=== PATIENT | female | born 1960 | race Caucasian/White ===

== ENCOUNTER → 2017-10-23 14:36 | Outpatient (CLI) | payer OTHER, SELFPAY ==
--- NOTE | 2017-10-23 14:44 | CT_ITS ---
CT sinus wo con CLINICAL INDICATION: Sinusitis ITS.REASON: ETHMOIDAL SINUSITIS ORDERING PHYSICIAN: Coleman Flaherty MD PATIENT AGE: 57 years COMPARISON: None TECHNIQUE:Axial, sagittal, and coronal images are generated and reviewed without contrast FINDINGS: There is mild mucosal thickening of the left maxillary sinus measuring up to 5 mm. Mild mucosal thickening involves the inferior wall the right maxillary sinus. There is mild mucosal thickening in the mid aspect of the left ethmoid sinus. The frontal and sphenoid sinuses have an unremarkable appearance as do the mastoid sinuses. No air-fluid level apparent. There is only minimal rightward nasal septal deviation. Ostomy or complex is are patent. Unremarkable TMJs and orbits. IMPRESSION: Mild maxillary and ethmoid sinus disease. No air-fluid levels
== END ==
PROVIDERS: Family Provider Family Medicine; PCP Family Medicine; Visit Provider Family Medicine
DX: J32.2 Chronic ethmoidal sinusitis (principal)
CPT/HCPCS: 70486

== ENCOUNTER → 2018-06-10 14:32 | Outpatient (CLI) | payer BC, SELFPAY ==
--- NOTE | 2018-06-10 14:35 | CA_ITS ---
PROCEDURE: 2-D M-mode and color Doppler study INDICATIONS FOR THE TEST: Chest pain + COPD Heart Murmur Tobacco SmokingEX Palpitations Fatigue Syncope Edema+ Hypertension+Diabetes Mellitus Rheumatic Fever SOB ROSS Obesity+Hyperlipidemia Family History HD Additional History EDEMA, MVP PATIENT INFORMATION HEIGHT: 70 WEIGHT:260 GENDER: Female B/P:120/84 2-D/M-MODE INTERPRETATION: 2-D MEASUREMENTS OBSERVED VALUES IN CMS Right Ventricular Dimension (RVDd) 1.4 Interventricular Septum (Thickness)(IVsd) 0.9 Left Ventricular Internal Dimensions(LVIDd) 5.6 Left Ventricular Posterior Wall (Thickness)(LVPWd) 0.9 Aortic Root 3.5 Aortic Cusp Separation 2.1 Left Atrial Dimensions (LAD) 3.4 2D 1. Left atrium is qualitatively mildly enlarged, left ventricle is normal size, mild concentric left ventricular hypertrophy, visually estimated ejection fraction 55% with no regional wall motion abnormality. 2. The right atrium and right ventricle are relatively normal size and function. 3. The aortic valve is minimally thickened and fibrosed. 4. The mitral and tricuspid valvular grossly normal. 5. The pulmonic valve is poorly visualized. 6. No significant pericardial effusion noted. DOPPLER INTERROGATION: Doppler interrogation of the aortic, mitral and tricuspid valvular presence of mild mitral and tricuspid regurgitation, tricuspid regurgitation jet velocity is insufficient for acquisition of the right ventricular systolic pressure, grade 1 diastolic dysfunction seen with tissue Doppler evidence of raised left atrial pressure. CONCLUSION: 1. Mildly enlarged left atrium, normal left ventricular size, mild concentric left ventricular hypertrophy, visually estimated ejection fraction 55% with no regional wall motion abnormality, grade 1 diastolic dysfunction seen with tissue Doppler evidence of raised left atrial pressure. 2. Mild mitral and tricuspid regurgitation 3. No significant pericardial effusion noted.
== END ==
PROVIDERS: Family Provider Family Medicine; PCP Family Medicine; Visit Provider Family Medicine
DX: R60.0 Localized edema (principal)
CPT/HCPCS: 93306

== ENCOUNTER → 2018-08-31 10:38 | Outpatient (CLI) | payer BC, SELFPAY ==
--- NOTE | 2018-08-31 10:40 | MM_ITS ---
MM Dig screening mamm BI w/CAD CAD Screening COMPARISON: Digital mammograms with CAD 08/22/2017 and 08/20/2016 INDICATION: There is no personal or family history of breast cancer. There has been previous biopsy left breast for benign disease. TECHNIQUE: Standard CC and MLO images were obtained. R2 CAD reviewed. FINDINGS: There is a diffusely dense and heterogenic parenchymal pattern somewhat lessening the sensitivity of mammography. The findings are fairly symmetrical bilaterally. There is a mole marker left breast. There is no suspicious lesion and there are no suspicious microcalcifications. There are few stable benign-appearing microcalcifications in each breast. IMPRESSION: Stable dense and heterogenic parenchymal pattern with no suspicious lesion seen BI-RADS Category: 2 Benign Finding(s) RECOMMENDED FOLLOW-UP: 1YR - 1 YEAR FOLLOW-UP (A letter has been sent to the patient regarding results of the study.)
== END ==
PROVIDERS: PCP Family Medicine; Visit Provider Obstetrics & Gynecology
DX: Z12.31 Encounter for screening mammogram for malignant neoplasm of breast (principal)
CPT/HCPCS: 77067

== ENCOUNTER → 2018-09-07 08:18 | Outpatient (CLI) | payer BC, SELFPAY ==
--- NOTE | 2018-09-07 08:19 | XR_ITS ---
Short DEX DEXA SCAN.-BONE DENSITY STUDY HIPS AND LUMBAR SPINE HISTORY: Postmenopausal female Bilateral oophorectomy. Hyperparathyroidism. Patient takes impression replacement therapy and levothyroxin. TECHNIQUE: DEXA scan hip and lumbar spine The most complete data summary and color graphic presentation of the today's ( and any prior ) DEXA findings are available in PACS. Definition and treatment guidelines included. COMPARISON: July 2015 except LUMBAR SPINE: Overall bone density Normal/above normal at lumbar spine L2 vertebral body demonstrates the lowest T score 1.3 with BMD1.355 g/cm sq Overall mean lumbar L1-L4 T score 2.3 with BMD1.451 g/cm sq . 2015 prior DEXA the mean T score 2.4. With BMD was1.468g/cm sq Thus when comparing today's study to the prior exam there's been a 2.5% % decrease mean bone density at the lumbar spine. I would note the today's limited vertebral bodies is more accurate today & correct. But today study will provide a better reference point HIPS: Normal bone density. Femoral neck density is best predictor of hip fracture risk . Right demonstrates the lowest T score = 0.7 . with BMD0.944 g/cm sq . Left femoral neck T score -0.6with BMD 0.953 Average and all regions both hips yields today's Hip Mean T score = 0.3; with BMD1.049 g/cm sq . 2015 DEXA overall hip T score = 0.1 with mean BMD1.020 g/cm sq Thus this reflects a 2.8% increasein overall mean bone density at the hips in the interval. IMPRESSION 1. LUMBAR SPINE: Overall bone density remains Normal/above normal at lumbar spine Normal bone density at all vertebral body levels 2. HIPS: Overall T score at hips 0.3 reflects normal bone density. Normal density at femoral necks as well as overall at hips. \ WHO criteria for post-menopausal, Women: Normal: T-score at or above -1 SD Osteopenia: T-score between -1 and -2.5 SD Osteoporosis: T-score at or below -2.5 SD A
== END ==
PROVIDERS: PCP Family Medicine; Visit Provider Obstetrics & Gynecology
DX: Z78.0 Asymptomatic menopausal state (principal)
CPT/HCPCS: 77080

== ENCOUNTER → 2019-02-04 14:33 | Outpatient (CLI) | payer BC, SELFPAY ==
--- NOTE | 2019-02-04 14:37 | CT_ITS ---
CT lung screening EXAM: CT LUNG LOW DOSE WO CONTRAST HISTORY: 30 pack-year smoking history, asymptomatic for lung cancer ITS.REASON: H/O NICOTINE DEPENDENCE ORDERING PHYSICIAN: Coleman Flaherty MD PATIENT AGE: 58 years COMPARISON: None TECHNIQUE: The exam was performed on a [employer] Speed [address] scanner using 2.90 mGy CTDI. A low dose helical CT CHEST was performed on a multi-detector scanner. All CT scans at the facility use one or more dose reduction, viz: automated exposure control, ma/kV adjustment per patient size (including targeted exams where dose is matched to indication, i.e. head), or iterative reconstruction technique. The LDCT was performed in a facility that meets the criteria for the screening program. Data regarding this exam was submitted to ACR which is an approved registry. The order for this exam indicates that it came as a result of a lung cancer screening counseling shard decision-making visit that included all the elements required of such a visit including smoking cessation. The radiologist interpreting this exam meets the CMS criteria for the LDCT lung cancer screening program. The exam is reported using the Lung-RADS classification scale and reported to the ACR registry. NOTE: This study was performed for the specific purposes of lung cancer screening and is not an alternative to diagnostic chest CT. RADIATION DOSE: CTDI vol(CT dose Index-volume) = 2.90mG DLP (Dose Length Product) = 94.9 by mGcm FINDINGS: There are scattered calcified granulomas. No suspicious pulmonary nodules are evident. There are few scattered small mediastinal lymph nodes unchanged. 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 Lung RADS Category: 2, benign 2. Other findings: No other pertinent findings evident RECOMMENDATIONS: 12 month LDCT follow-up
== END ==
PROVIDERS: PCP Family Medicine; Visit Provider Family Medicine
DX: Z12.2 Encounter for screening for malignant neoplasm of respiratory organs (principal); Z87.891 Personal history of nicotine dependence

== ENCOUNTER → 2019-08-27 15:37 | Outpatient (CLI) | payer BC, SELFPAY ==
--- NOTE | 2019-08-27 15:39 | MM_ITS ---
PROCEDURE: MM DIG SCREENING MAMM BI W/CAD Patient Age:59Y CLINICAL INDICATION: screening. No new complaints. Uses estradiol current. Previous benign surgical excisional biopsy left breast Family history. Noncontributory COMPARISON: [facility] DIGITAL MAMM-SCREEN BILATERAL from 05/18/2012 BB US BREAST-JULIA from 06/15/2013 [facility] DIG MAMM-SCREEN JULIA from 07/06/2014 [facility] DIG MAMM-SCREEN JULIA from 07/26/2015 [id number] DIG MAMM-DX UNI ADD VIEWS-LT from 08/18/2015 [facility] DIG MAMM-SCREEN JULIA from 08/20/2016 [facility] DIG MAMM-SCREEN JULIA W/CAD from 08/22/2017 [facility] MM Dig screening mamm BI w/CAD from 08/31/[address] lung screening from 02/04/2019 TECHNIQUE: Standard CC and MLO images were obtained. R2 CAD reviewed. FINDINGS: Dense heterogeneous difficult evaluate dense breast. Underlying fibrocystic disease with cyst identified on previous ultrasound most recent from 2012. Fairly stable overall appearance bilaterally but the dense breast character decrease sensitivity of mammography and nodularity may be slightly more evident superior left breast today LEFT BREAST. Suggestion of vague round density superior left breast I believe towards 12 o'clock; measures up to 17 mm height., likely reflects underlying cyst. Very slightly more evident today than previous studies.-This area is labeled X. Because of this focal feature along with the overall heterogeneous dense character of both breast (which does decrease sensitivity mammography) I would suggest bilateral breast ultrasound. This will serve as a a useful augment/supplemental screening mammography particularly regions breast tissue is most dense. I believe bilateral breast ultrasound warranted at this juncture in this heterogeneous fairly dense character breast, particularly since since last breast ultrasound was in 2012 and the patient is on estradiol Also suggest mammography spot views area labeled X: MLO and CC view left breast along with a full 90 degree view left breast when patient returns prior to the ultrasound A more linear density just inferior to this labeled Y on today's MLO view appears stable since prior studies dating back to at least 2015. And 2013 RIGHT BREAST: Overall stable architecture with no focal dominant or suspicious mass, but again ultrasound would be helpful to augment and complement mammography to survey this dense breast when the patient returns. Again note patient's last bilateral breast ultrasound was in 2012 on which the patient demonstrated bilateral fibrocystic disease as would be anticipated from this appearance IMPRESSION: Dense heterogeneous breast tissue bilateral decrease sensitivity of mammography Mammography is of decreased sensitivity in breast of this heterogeneous dense character. Suggest BILATERAL BREAST ULTRASOUND to augment/complement mammography, and to further evaluate area focal area at superior left breast but labeled X (likely cyst) Left breast: A slight more evident round density towards 12 o'clock today. Most likely a underlying cyst-. Spot views and ultrasound specifically to specifically evaluate this region required Right breast. Diffusely dense with no discrete new area of concern but would suggest ultrasound here as well. BI-RAD Category: 0 Need Additional Imaging Evaluation FOLLOW-UP: IMM Immediate Follow-up Recommend (A letter has been sent to the patient regarding results of the study.) Dictated by: Lee Nguyễn MD 09/03/2019 14:24 Electronically signed by Lee Nguyễn MD in [place] 09/03/2019 14:24
== END ==
PROVIDERS: PCP Family Medicine; Referring Provider Obstetrics & Gynecology; Visit Provider Obstetrics & Gynecology
DX: Z12.31 Encounter for screening mammogram for malignant neoplasm of breast (principal)
CPT/HCPCS: 77067

== ENCOUNTER → 2020-08-29 07:35 | Outpatient (CLI) | payer BC, SELFPAY ==
--- NOTE | 2020-08-29 07:36 | MM_ITS ---
PROCEDURE: MM DIG SCREENING MAMM BI W/CAD Digital Breast Tomosynthesis Included CLINICAL INDICATION: Routine Screening Mammogram There is no personal or family history of breast cancer. There has been a previous biopsy left breast for benign disease. The patient is on estradiol. COMPARISON: MG [facility] DIG MAMM-SCREEN JULIA W/CAD from 08/22/2017 MG [facility] MM Dig screening mamm BI w/CAD from 08/31/2018 MG MM DIG SCREENING MAMM BI W/CAD from 08/27/2019 TECHNIQUE: Standard CC and MLO images and 3D Tomosynthesis was obtained. R2 CAD reviewed. FINDINGS: There is a diffusely dense and heterogenic parenchymal pattern. There are persistent dominant densities left breast for which ultrasound was recommended on the previous exam but apparently was not performed. Some of these densities have shown interval increase in size since the previous exam and again I would recommend ultrasound left breast for additional evaluation even though these likely are benign cystic lesions. There are no CAD markings. There are no suspicious microcalcifications. IMPRESSION: Dense and heterogenic parenchymal pattern with dominant nodular densities left breast BI-RAD Category: 0 Need Additional Imaging Evaluation FOLLOW-UP: IMM Immediate Follow-up Recommended (A letter has been sent to the patient regarding results of the study.) Dictated by: Dr. Leopoldo Blankenship MD 09/01/2020 07:55 Dr. Leopoldo Blankenship MD in [place] 09/01/2020 07:55
== END ==
PROVIDERS: PCP Family Medicine; Visit Provider Obstetrics & Gynecology
DX: Z12.31 Encounter for screening mammogram for malignant neoplasm of breast (principal)
CPT/HCPCS: 77063; 77067

== ENCOUNTER → 2020-09-16 10:52 | Outpatient (CLI) | payer BC, SELFPAY ==
[2020-09-16 10:57] LABS: Adenovirus,PCR Not Detected (NotDetected); Bordetella Pertussis Not Detected (NotDetected); Chlamydophila Pneumoniae, PCR Not Detected (NotDetected); Coronavirus 229E Not Detected (NotDetected); Coronavirus NL63 Not Detected (NotDetected); Coronavirus OC43 Not Detected (NotDetected); Coronovirus HKU1,PCR Not Detected (NotDetected); Human Metapneumovirus Not Detected (NotDetected); Influenza A, PCR Not Detected (NotDetected); Influenza AH1, 2009 Not Detected (NotDetected); Influenza AH1, PCR Not Detected (NotDetected); Influenza AH3,PCR Not Detected (NotDetected); Influenza B, PCR Not Detected (NotDetected); Mycoplasma Pneumoniae, PCR Not Detected (NotDetected); Parainfluenza 1, PCR Not Detected (NotDetected); Parainfluenza 2, PCR Not Detected (NotDetected); Parainfluenza 3, PCR Not Detected (NotDetected); Parainfluenza 4, PCR Not Detected (NotDetected); Respiratory Syncytial Virus Not Detected (NotDetected); Rhinovirus/Enterovirus Not Detected (NotDetected)
[2020-09-16 11:09] LABS: Basophils % 0.6 % (0.1-2.0); Eosinophils % 0.2 % (0.1-12.0); Hematocrit 38.8 % (37.0-47.0); Hemoglobin 13.1 g/dL (12.2-16.2); Lymphocytes # 1.8 K/mm3 (0.7-4.5); Lymphocytes % 23.2 % (10-50); Mean Corpuscular HGB Conc 33.8 g/dL (31.8-35.4); Mean Corpuscular Hemoglobin 31.6 pg (27.0-31.2); Mean Corpuscular Volume 93.7 fl (81-99); Mean Platelet Volume 8.5 fl (7.4-10.4); Monocytes # 0.2 K/mm3 (0.1-1.0); Neutrophils # 5.8 K/mm3 (1.8-7.8); Neutrophils % 73.1 % (37.0-80.0); Platelet Count 333 K/mm3 (142-424); Red Blood Count 4.14 M/mm3 (4.20-5.40); Red Cell Distribution Width 14.6 % (11.5-17.5); White Blood Count 7.9 K/mm3 (4.8-10.8)
[2020-09-17 11:43] LABS: Coronavirus 19, PCR Detected (NotDetected)
== END ==
PROVIDERS: PCP Family Medicine; Visit Provider Family Medicine
DX: Z20.828 Contact with and (suspected) exposure to other viral communicable diseases (principal); U07.1 COVID-19
CPT/HCPCS: 36415; 85025; 87581; 87633; 87798

== ENCOUNTER → 2020-09-28 09:51 | Outpatient (CLI) | payer BC, SELFPAY | PROVIDERS: Visit Provider Physician Assistant | DX: Z03.818 Encounter for observation for suspected exposure to other biological agents ruled out (principal) | CPT/HCPCS: U0003 ==

== ENCOUNTER → 2021-01-12 07:41 | Outpatient (CLI) | payer BC, SELFPAY ==
--- NOTE | 2021-01-12 07:46 | XR_ITS ---
PROCEDURE: XR DEXA AXIAL SKELETON CLINICAL HISTORY: POST MENOPAUSAL COMPARISON: CR DEXAAX XR DEXA axial skeleton from 09/07/2018 FINDINGS: The right hip BMD is 0.840 with a T-score of -0.1. The left hip BMD is 0.813 with a T-score of -0.3. The lumbar spine BMD is 1.327 with a T-score of 2.5. IMPRESSION: This patient is considered normal according to the World Health Organization criteria. Fracture risk is low. Based on these results a follow-up exam is recommended in 2 year. Dictated by: Ayden Lyn MD 01/13/2021 09:04 Ayden Lyn MD in [place] 01/13/2021 09:04
--- NOTE | 2021-01-12 07:46 | CT_ITS ---
PROCEDURE: CT LUNG SCREENING CLINICAL INDICATION: H/O NICOTINE DEPENDENCE Former smoker Quit smoking 14 years ago 30 pack year smoking history COMPARISON: CT LUNGSCREEN CT lung screening from 02/04/2019 TECHNIQUE: The exam was performed on a GE [employer] Speed [address] scanner using 2.90 mGy CTDI. A low dose helical CT CHEST was performed on a multi-detector scanner. All CT scans at the facility use one or more dose reduction, viz: automated exposure control, ma/kV adjustment per patient size (including targeted exams where dose is matched to indication, i.e. head), or iterative reconstruction technique. The LDCT was performed in a facility that meets the criteria for the screening program. Data regarding this exam was submitted to ACR which is an approved registry. The order for this exam indicates that it came as a result of a lung cancer screening counseling shard decision-making visit that included all the elements required of such a visit including smoking cessation. The radiologist interpreting this exam meets the CMS criteria for the LDCT lung cancer screening program. The exam is reported using the Lung-RADS classification scale and reported to the ACR registry. NOTE: This study was performed for the specific purposes of lung cancer screening and is not an alternative to diagnostic chest CT. RADIATION DOSE: CTDI vol(CT dose Index-volume) = 2.90mG DLP (Dose Length Product) = 112.55 mGcm FINDINGS: No suspicious pulmonary nodules apparent. COPD changes with evidence of old granulomatous disease. OTHER FINDINGS: Prior splenectomy with at least 3 nodular soft tissue densities in the left upper quadrant and may be due to splenules IMPRESSION: Lung-RADS Category 1 Negative Follow-up: Continue annual screening with LDCT in 12 months Dictated by: Ayden Lyn MD 01/18/2021 13:48 Ayden Lyn MD in [place] 01/18/2021 13:48
== END ==
PROVIDERS: PCP Family Medicine; Visit Provider Physician Assistant
DX: Z87.891 Personal history of nicotine dependence (principal); Z12.2 Encounter for screening for malignant neoplasm of respiratory organs; Z78.0 Asymptomatic menopausal state
CPT/HCPCS: 71271; 77080

== ENCOUNTER 2021-04-26 10:42 | Emergency (ER) | payer BC, SELFPAY ==
[2021-04-26 10:45] VITALS: BP 148/49; PULSE 78; RESP 18; TEMP 36.9; O2SAT 98; BMI 39.3
--- NOTE | 2021-04-26 11:04 | XR_ITS ---
PROCEDURE: XR KNEE LT 3V CLINICAL INDICATION: FELL ON 04/12/21 Pain COMPARISON: CR [id number] KNEE-4 OR 5 VIEWS-LT from 02/24/2013 CR [id number] KNEE-LIMITED 2 VIEWS-LT from 05/03/2013 CR [id number] KNEE-LIMITED 2 VIEWS-LT from 05/17/2013 CR [id number] KNEE-LIMITED 2 VIEWS-LT from 11/10/2013 FINDINGS: Status post total knee replacement with good position of the prosthesis. No fracture or dislocation is evident. Other findings:There is a small hyperdense triangular-shaped density lateral to the tibial prosthesis proximally may be related to an osteophyte. This position has not been duplicated previously on the x-rays to determine if this is acute or chronic. Follow-up may confirm stability. IMPRESSION: S/p total knee replacement with good alignment. No definite acute finding. Please see above for detail Dictated by: Ayden Lyn MD 04/26/2021 12:01 Ayden Lyn MD in [place] 04/26/2021 12:01
[2021-04-26 11:39] VITALS: BP 148/49; PULSE 78; RESP 18; TEMP 36.9; O2SAT 98
--- NOTE | 2021-04-26 11:55 | HMH.EDUTC ---
[facility] [place] Impression: Left knee pain Qualifiers: Chronicity: acute Qualified Code(s): M25.562 - Pain in left knee Disposition: Home, Self-Care Condition on Discharge: Good Instructions: DI for Knee Pain Additional Instructions: Rest the extremity, Elevate the extremity as tolerated while you are resting. Follow up with Dr. Garcia (orthopedics). I put in a referral but you need to call his office and schedule an appointment. Follow up with your regular doctor. GO TO THE ER FOR ANY WORSENING SYMPTOMS Referrals: Victor Manuel Renee APRN [Primary Care Provider] - Hernesto Garcia MD [Staff Physician] - Time of Disposition: 12:12 Medical Decision Making - Medical Records Medical records reviewed: No: I reviewed the patient's medical records. - Vahe Inquiry Pt receiving controlled substance: No Vital Signs: 04/26/21 10:45 04/26/21 11:39 Temperature 98.5 F 98.5 F Temperature Source Oral Pulse Rate 78 Pulse Rate [Left Brachial] 78 Respiratory Rate 18 18 Blood Pressure 148/49 H Blood Pressure [Left Arm] 148/49 H Blood Pressure Mean [Left Arm] 82 Blood Pressure Source [Left Arm] Automatic Cuff Blood Pressure Position [Left Arm] Sitting 02 Sat by Pulse Oximetry 98 Oxygen Delivery Method Room Air - Radiology Data #1 Image(s): Knee Image Reviewed: Yes I reviewed the patient's radiology image [facility] [place] - General Stated complaint: ao fall 04/12 lft knee Time Seen by Provider: 04/26/21 11:00 Mode of Arrival: Ambulatory Source of Information: Patient Limitations: No Limitations Description of Symptoms (Recalled from Triage Doc. by RN): PATIENT C/O BRUISING TO LEFT KNEE. STATES SHE FELL ON 04/12 AND LANDED ON LEFT KNEE; HISTORY OF KNEE REPLACEMENT HEENT Symptoms (Recalled from RN notes): No Resp Symptoms (Recalled from RN notes): No Skin Symptoms (Recalled from RN notes): No MS Symptoms (Recalled from RN notes): Yes Functional Status (Recalled from RN notes): WNL - History of Present Illness Provider Complaint: She states that she fell while at work on 04/12 and came down on her left knee. Since then she has had left knee swelling and tenderness. She had a total knee replacement done around 4 years ago. Since then she has did really well with her knee until now. - Related Data Home Medications Medication Instructions Recorded Confirmed alprazolam 0.25 mg tablet 0.25 mg PO BID 09/03/18 09/06/19 diclofenac sodium 75 mg 75 mg PO BID 09/03/18 09/06/19 tablet,delayed release furosemide 40 mg tablet 40 mg PO DAILY 09/03/18 09/06/19 levothyroxine 100 mcg capsule 200 mcg PO DAILY cap 09/03/18 09/06/19 lisinopril 20 mg tablet 20 mg PO BID tab 09/03/18 09/06/19 Previous Rx's Medication Instructions Recorded estradiol 2 mg tablet 2 mg PO DAILY 30 Days #30 tab 09/07/20 Allergies Allergy/AdvReac Type Severity Reaction Status Date / Time erythromycin base Allergy Unknown Verified 09/07/20 09:59 [From ERYTHROCIN] Penicillins [PENICILLINS] Allergy Unknown Verified 09/07/20 09:59 - Worker's Comp Is this a Worker's Comp case?: No [facility] History - Hepatitis A Screen Drug use history?: No High risk sexual behaviors?: No History of sexually transmitted infection?: No Currently employed?: No Childcare worker?: No Do you have indoor plumbing?: Yes Do you have electricity?: Yes Attestation statement:: This patient has been screened for Hepatitis A risk factors. I have reviewed the patient's past medical history: Yes Medical History: Reports:: Cancer, Hypertension Denies:: Diabetes Mellitus Type 1, Diabetes Mellitus Type 2, MRSA Other Medical History: Reports: Arthritis, Other Comment: ARTHRITIS, MITRAL VALVE PROLAPSE, HYPERTENSION, CLIMACTERIC, THYROID CANCER, ACHILLES HEEL Other Surgeries: Yes: Dilation and Curettage, Hysterectomy-Total, Other Amputation: No Fractures: Yes Comment: 1987- RUPTURED SPLEEN>> SPLENECTOMY. 1987- D&E. 1989- MYOMECT
== END 2021-04-26 12:30 | disposition home or self-care (01) ==
PROVIDERS: Emergency Provider Nurse Practitioner Family; PCP Nurse Practitioner Family
DX: M25.562 Pain in left knee (principal); W01.0XXA Fall on same level from slipping, tripping and stumbling without subsequent striking against object, initial encounter; Y92.63 Factory as the place of occurrence of the external cause; Y99.0 Civilian activity done for income or pay
CPT/HCPCS: 73562; 99202; G0463

== ENCOUNTER → 2021-09-28 13:01 | Outpatient (CLI) | payer OTHER, SELFPAY ==
--- NOTE | 2021-09-28 13:01 | MM_ITS ---
PROCEDURE INFORMATION: Exam: MG Bilateral Screening 3D Mammography Exam date and time: 09/28/2021 1:01 PM Age: 61 years old Clinical indication: Encounter for screening mammogram for malignant neoplasm of breast TECHNIQUE: Imaging protocol: Bilateral screening tomosynthesis and 2D mammography including computer-aided detection (CAD) when performed. COMPARISON: 1. MG MM DIG SCREENING MAMM BI W/CAD 08/29/2020 8:07 AM 2. MG MM DIG SCREENING MAMM BI W/CAD 08/27/2019 4:01 PM 3. MG [facility] MM Dig screening mamm BI w/CAD 08/31/2018 10:55 AM FINDINGS: MAMMOGRAPHY: Breast composition: The breasts are extremely dense, which lowers the sensitivity of mammography. Mass: No suspicious masses. Architectural distortion: No suspicious distortion. Calcifications: No suspicious calcifications. Asymmetric density: None. Skin thickening: None. Axillary adenopathy: None. IMPRESSION: No mammographic evidence of malignancy. Annual screening is recommended unless otherwise clinically indicated. ASSESSMENT: BI-RADS Category 1: Negative
== END ==
PROVIDERS: PCP Family Medicine; Visit Provider Obstetrics & Gynecology
DX: Z12.31 Encounter for screening mammogram for malignant neoplasm of breast (principal)
CPT/HCPCS: 77063; 77067

== ENCOUNTER → 2022-05-07 15:51 | Outpatient (POV) | payer BC, SELFPAY | PROVIDERS: Visit Provider Dermatology | DX: Z00.00 Encounter for general adult medical examination without abnormal findings (principal) ==

== ENCOUNTER 2022-07-12 14:48 | Emergency (ER) | payer BC, SELFPAY ==
[2022-07-12 15:11] VITALS: BP 182/89; PULSE 75; RESP 18; TEMP 36.7; O2SAT 96; BMI 41.5
--- NOTE | 2022-07-12 15:46 | EXP.UTC ---
Discharge Plan Disposition Patient Disposition: Home, Self-Care Condition: Good Prescriptions Prescriptions: New prednisone [prednisone] 20 mg tablet 20 mg PO BID 5 Days Qty: 10 0RF cefdinir 300 mg capsule 300 mg PO BID 20 Days Qty: 20 0RF No Action metoprolol succinate 100 mg tablet extended release 24 hr PO rosuvastatin 5 mg tablet 5 mg PO DAILY Label Comments: TAKE 1 TABLET BY MOUTH EVERY DAY fluticasone propionate 50 mcg/actuation spray,suspension INTRANASAL Label Comments: SHAKE LIQUID AND USE 1 SPRAY IN EACH NOSTRIL EVERY DAY alprazolam 0.25 mg tablet 0.25 mg PO BID levothyroxine 100 mcg capsule 200 mcg PO DAILY lisinopril 20 mg tablet 20 mg PO BID furosemide 40 mg tablet 40 mg PO DAILY estradiol 2 mg tablet 2 mg PO DAILY 30 Days Qty: 30 12RF Referrals Follow up/Referrals: Coleman Flaherty MD [Primary Care Provider] - See instructions Clinical Impressions Clinical Impression: Sinusitis Instructions Patient Instructions: DI for Sinusitis Discharge ED Provider: Gabriella Waterman [facility] [place] General Stated complaint: possible sinus infection Mode of Arrival: Ambulatory Source of Information: Patient Limitations: No Limitations Time Seen by Provider: 07/12/22 15:46 Description of Symptoms (Recalled from Triage Doc. by RN): C/O sinus infection HEENT Symptoms (Recalled from RN notes): Yes (Sinus infection) Resp Symptoms (Recalled from RN notes): No Skin Symptoms (Recalled from RN notes): No MS Symptoms (Recalled from RN notes): No Functional Status (Recalled from RN notes): n/a History of Present Illness Provider Complaint: Sinus pain, pressure, congestion, drainage. No fever. Yellow green mucous. Symptoms X 2 days but rapidly worse. H/o splenectomy. Onset (ago): day(s) (2) Location: head Related Data Home Medications Medication Instructions Recorded Confirmed alprazolam 0.25 mg tablet 0.25 mg PO BID 09/03/18 10/05/21 furosemide 40 mg tablet 40 mg PO DAILY 09/03/18 10/05/21 levothyroxine 100 mcg capsule 200 mcg PO DAILY 09/03/18 10/05/21 lisinopril 20 mg tablet 20 mg PO BID 09/03/18 10/05/21 fluticasone propionate 50 g intranasal 10/05/21 10/05/21 mcg/actuation nasal spray,suspension metoprolol succinate 100 mg tab PO 10/05/21 10/05/21 tablet,extended release 24 hr rosuvastatin 5 mg tablet 5 mg PO DAILY 10/05/21 10/05/21 Previous Rx's Medication Instructions Recorded estradiol 2 mg tablet 2 mg PO DAILY 30 days #30 tabs 09/26/21 cefdinir 300 mg capsule 300 mg PO BID 20 days #20 caps 07/12/22 prednisone 20 mg tablet 20 mg PO BID 5 days #10 tabs 07/12/22 Allergies Allergy/AdvReac Type Severity Reaction Status Date / Time erythromycin base Allergy Unknown Verified 09/07/20 09:59 [From ERYTHROCIN] Penicillins [PENICILLINS] Allergy Unknown Verified 09/07/20 09:59 Worker's Comp Is this a Worker's Comp case?: No PFSH PFSH Social History Smoking Status: Never smoker alcohol intake: never substance use type: denies use current occupational status: employed Travel in the last 8 weeks: None ROS Obtained: Yes All systems reviewed & no additional complaints except as documented Constitutional Constitutional: Reports fatigue, Denies fever(s) and Reports malaise ENT Ears, Nose, Mouth, and Throat: Reports nasal congestion, Reports nasal discharge, Reports sinus pain and Reports sinus pressure Respiratory Respiratory: Reports chest congestion Endocrine Endocrine: Reports fatigue Physical Exam General General appearance: alert and in no apparent distress Head Head exam: normocephalic Eye Eye exam: Present PERRL ENT ENT exam: Present normal oropharynx and TM's normal bilaterally Expanded ENT Exam Nose exam: Present sinus tenderness Respiratory Respiratory exam: Present normal lung sounds bilaterally Cardiovascular Cardiovascular exam: Present regular rate and n
[2022-07-12 15:55] VITALS: BP 182/89; PULSE 75; RESP 18; TEMP 36.7; O2SAT 96
== END 2022-07-12 15:55 | disposition home or self-care (01) ==
PROVIDERS: Emergency Provider Physician Assistant; PCP Family Medicine
DX: J32.9 Chronic sinusitis, unspecified (principal)
CPT/HCPCS: 99212; G0463

== ENCOUNTER → 2022-08-12 11:59 | Outpatient (CLI) | payer BC, SELFPAY ==
--- NOTE | 2022-08-12 12:07 | XR_ITS ---
FINAL REPORT TECHNIQUE: Single view chest CLINICAL HISTORY: COVID OUTPATIENT FINDINGS: A single view of the chest was obtained. The heart and mediastinum are within normal limits. The lungs are clear. There is no pneumothorax. Osseous structures are unremarkable. IMPRESSION: No acute cardiopulmonary process. Reviewed, Interpreted and Dictated by Werner Howard III, MD Transcribed by Mary Ellen Chavira Authenticated and [facility]
[2022-08-12 13:08] LABS: Adenovirus,PCR Not Detected (NotDetected); Bordetella Pertussis Not Detected (NotDetected); Chlamydophila Pneumoniae, PCR Not Detected (NotDetected); Coronavirus 229E Not Detected (NotDetected); Coronavirus NL63 Not Detected (NotDetected); Coronavirus OC43 Not Detected (NotDetected); Coronovirus HKU1,PCR Not Detected (NotDetected); Human Metapneumovirus Not Detected (NotDetected); Influenza A, PCR Not Detected (NotDetected); Influenza AH1, 2009 Not Detected (NotDetected); Influenza AH1, PCR Not Detected (NotDetected); Influenza AH3,PCR Not Detected (NotDetected); Influenza B, PCR Not Detected (NotDetected); Mycoplasma Pneumoniae, PCR Not Detected (NotDetected); Parainfluenza 1, PCR Not Detected (NotDetected); Parainfluenza 2, PCR Not Detected (NotDetected); Parainfluenza 3, PCR Not Detected (NotDetected); Parainfluenza 4, PCR Not Detected (NotDetected); Respiratory Syncytial Virus Not Detected (NotDetected); Rhinovirus/Enterovirus Not Detected (NotDetected)
[2022-08-12 13:24] LABS: Basophils # 0.2 K/mm3 (0-0.2); Basophils % 0.8 % (0.1-2.0); Eosinophils # 0.3 K/mm3 (0.0-0.4); Eosinophils % 1.4 % (0.1-12.0); Hemoglobin 12.4 g/dL (12.2-16.2); Lymphocytes # 3.2 K/mm3 (0.7-4.5); Lymphocytes % 16.4 % (10-50); Mean Corpuscular HGB Conc 31.9 g/dL (31.8-35.4); Mean Corpuscular Hemoglobin 29.9 pg (27.0-31.2); Mean Corpuscular Volume 93.8 fl (81-99); Monocytes # 1.3 K/mm3 (0.1-1.0); Monocytes % 6.6 % (1.7-9.3); Neutrophils # 14.8 K/mm3 (1.8-7.8); Neutrophils % 74.8 % (37.0-80.0); Platelet Count 474 K/mm3 (142-424); Red Blood Count 4.15 M/mm3 (4.20-5.40); Red Cell Distribution Width 14.4 % (11.5-17.5); White Blood Count 19.8 K/mm3 (4.8-10.8)
[2022-08-12 13:44] LABS: MANUAL DIFFERENTIAL MANUAL DIFFERENTIAL (MANUAL DIFF)
[2022-08-12 16:41] LABS: Eosinophils % 1 % (0-3); Lymphocytes % 19 % (10-50); Monocytes % 2 % (2-9); Neutrophils % 78 % (42-76); Total Cells Counted 100
[2022-08-12 16:42] LABS: Platelet Estimate Slight Increase; RBC Morphology Normal
[2022-08-12 17:00] LABS: Coronavirus 19, PCR Detected (NotDetected)
== END ==
LOC: UTC.OUT 08-30 17:54 → COVID.OUT 08-30 17:55
PROVIDERS: PCP Family Medicine; Visit Provider Family Medicine
DX: U07.1 COVID-19 (principal)
CPT/HCPCS: 36415; 71045; 85007; 85025; 87581; 87632; 87798; C9803; U0003; U0005

== ENCOUNTER → 2022-10-04 16:39 | Outpatient (CLI) | payer BC, SELFPAY ==
--- NOTE | 2022-10-04 16:39 | MM_ITS ---
PROCEDURE INFORMATION: Exam: MG Bilateral Screening 3D Mammography Exam date and time: 10/04/2022 4:31 PM Age: 62 years old Clinical indication: Screening mammogram TECHNIQUE: Imaging protocol: Bilateral Screening tomosynthesis and 2D mammography including computer-aided detection (CAD) when performed. COMPARISON: 1. MG MM DIG SCREENING MAMM BI W/CAD 09/28/2021 1:07 PM 2. MG MM DIG SCREENING MAMM BI W/CAD 08/29/2020 8:07 AM 3. MG MM DIG SCREENING MAMM BI W/CAD 08/27/2019 4:01 PM 4. MG SCBI MM Dig screening mamm BI w/CAD 08/31/2018 10:55 AM FINDINGS: MAMMOGRAPHY: Breast composition: The breast tissue is extremely dense, which lowers the sensitivity of mammography. Mass: None. Architectural distortion: No new or suspicious architectural distortion. Calcifications: Stable benign-appearing calcifications are present. No new or suspicious cluster of microcalcifications have developed. Asymmetric density: No new or suspicious asymmetric density is present Skin thickening: None. Axillary adenopathy: None. IMPRESSION: No mammographic evidence of malignancy. Recommend annual screening mammography unless otherwise clinically indicated. ASSESSMENT: BI-RADS category 2: Benign
== END ==
PROVIDERS: PCP Family Medicine; Visit Provider Obstetrics & Gynecology
DX: Z12.31 Encounter for screening mammogram for malignant neoplasm of breast (principal)
CPT/HCPCS: 77063; 77067

== ENCOUNTER → 2023-10-08 14:47 | Outpatient (POV) | payer BC, SELFPAY ==
--- NOTE | 2023-10-08 14:50 | A.OFFVIS_ITS ---
HPI Data of Consult Patient: new to practice Consult date: 10/08/23 Requesting Physician: Mary Massey APRN Primary Care Provider: Coleman Flaherty MD Consult Narrative History of present illness: Ms. Causey is a 63 year old female who presents today as a new patient. She is a referral from Dr. Flaherty's office. Today she rates her pain a 10 out of 10. Patient states her pain is all in and around her mid back between her shoulder blades and describes it as a catching, achy sensation that occurs at random but is fairly constant. She does state the pain in her mid back will radiate into and under her right arm. Patient states this has been going on for the last 2 months and that she denies any specific trauma or injury that initially started. Patient states she was just doing things around her house and had reached out causing a catching sensation with pain in her back. She does state that she is having right hand numbness and tingling. 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 Patient states that she was ordered x-ray imaging however she states that she has not gotten this done because there was no order there yesterday when she went however she has been told that it will be there today. Patient is unsure whether or not if the x-ray is for her neck or mid back. Patient does states she has tried [id number] Tylenol and Aleve and ibuprofen along with muscle relaxers with minimal relief. Patient denies any previous surgery or injection history. Patient states she has been going to the chiropractor the last 4 weeks and it does help temporarily. Patient does state that she feels like it may also be stress related. Her is present today with her in the office. He states he does have concerns whether or not that it may be heart attack. patient denies having any recent EKG or stress test. Patient does states she has a history of mitral valve prolapse. Patient does use a TENS unit for temporary relief. Patient is currently managed with alprazolam 0.25 mg twice daily from an outside provider. Her Vahe has been reviewed and is appropriate. CC: Mary Massey APRN [facility] Disclaimer: The information contained in this section may have been updated after the patient was seen, as this information can be updated by other users. Medical History (Updated 10/08/23 @ 16:00 by Mary Massey APRN) History of hypertension Hyperlipemia Spleen absent Surgical History H/O thyroidectomy H/O total hysterectomy History of total left knee replacement Family History (Updated 10/08/23 @ 15:34 by Yandy Murphy RN) Other Unknown family medical history Social History (Updated 10/08/23 @ 15:34 by Yandy Murphy RN) Smoking Status: Never smoker alcohol intake: never substance use type: denies use current occupational status: employed Travel in the last 8 weeks: None Review of Systems Review of Systems Review of systems:: pertinent systems reviewed and negative unless documented below Review of systems (narrative): Review of Systems: General: No recent weight changes, no fever, no sleep disturbances Respiratory: No cough, no shortness of air, no recurring pulmonary infections Cardiovascular/peripheral vascular: No chest pain, no palpitations, no edema, no shortness of breath Gastrointestinal: No new onset incontinence, normal bowel movements reported Genitourinary: No new onset incontinence Musculoskeletal: Right hand numbness, mid back pain Psychiatric: [Normal mood/affect] Neurological: [Denies weakness in extremities], [denies balance issues] Meds Home Medications and Allergies Home Medications Medication Instructions Recorded Confirmed Type alprazolam 0.25 mg tablet 0.25 mg PO BID 09/03/18 10/08/23 History furosemide 40 mg tablet 40 mg PO DAILY 09/03/18 10/08/23 History levothyroxine 100 mcg capsule 200 mcg PO DAILY 09/03/18 10/08/23 History lisinopril 20 mg tablet 20 mg PO BID 09/03/18 10/08/23 History fluticasone propionate 50 50 mcg intranasal DIRECTED 10/05/21 10/08/23 History mcg/actuation nasal spray,suspension metoprolol succinate 100 mg 1 tab PO DAILY BLOOD PRESSURE 10/05/21 10/08/23 History tablet,extended release 24 hr estradiol 2 mg tablet 2 mg PO DAILY 30 days #30 tabs 10/11/22 10/08/23 Rx rosuvastatin 5 mg tablet See Rx Instructions .Route 06/30/23 10/08/23 Rx .COMPLEX #30 tabs New Prescriptions to Start Prescriptions: Allergies Allergy/AdvReac Type Severity Reaction Status Date / Time erythromycin base Allergy Unknown Verified 10/11/22 09:30 [From ERYTHROCIN] Penicillins [PENICILLINS] Allergy Unknown Verified 10/11/22 09:30 Objective Narrative: Physical Exam: General: Alert and oriented x3, no acute distress, pleasant and cooperative Lungs: Respirations even and unlabored, symmetrical chest expansion Eyes: PERRL Musculoskeletal: Flexion and extension of cervical [spine] somewhat guarded secondary to pain, point tenderness noted along thoracic spine Neurological: Speech clear, no gross sensory deficit Assessment and Plan *Assessment and plan (1) Mid back pain: Status: Acute Category: Medical Code(s): M54.9 - Dorsalgia, unspecified (2) Right hand paresthesia: Status: Acute Category: Medical Code(s): R20.2 - Paresthesia of skin (3) Weakness of right hand: Status: Acute Category: Medical Code(s): R29.898 - Other symptoms and signs involving the musculoskeletal system Plan Patient is experiencing significant pain in her mid back along the right side as well as experiencing worsening right hand numbness and tingling and weakness. Patient did have discoloration of her right hand during today's exam and was cool to touch. I have discussed with the patient that she may benefit from injection therapy however I would like to do x-ray imaging of her cervical and thoracic spine. I will proceed forward with ordering MRI of cervical and thoracic spine without contrast. I will order compounded cream for the patient. I have discussed with the patient due to her history of mitral valve prolapse I do recommend she talk to her primary care provider regarding ordering EKG and possible stress test to rule out any heart related issues. I will send a referral to for Dr. Khan's office for EMG testing to rule out carpal tunnel. Patient will return to clinic in 1 month for reevaluation of symptoms and plan of care. Patient has been instructed to contact the clinic with any concerns before the next appointment. Dr. Johnson has reviewed this note and agrees with this plan of care. This note was dictated using voice recognition software and make contain errors or omissions.
[2023-10-08 14:54] VITALS: BP 175/89; PULSE 76; RESP 18; O2SAT 96; BMI 39.3
== END ==
LOC: SC.PAIN 14:48
PROVIDERS: PCP Family Medicine; Visit Provider Nurse Practitioner Family
DX: M54.6 Pain in thoracic spine (principal); R20.2 Paresthesia of skin; R29.898 Other symptoms and signs involving the musculoskeletal system; R53.1 Weakness
CPT/HCPCS: 99202; G0463

== ENCOUNTER 2023-10-08 16:02 | Outpatient (CLI) | payer BC, SELFPAY ==
--- NOTE | 2023-10-08 16:13 | XR_ITS ---
FINAL REPORT CLINICAL HISTORY: Neck and back pain COMPARISON: None FINDINGS: CERVICAL SPINE 5 views were obtained. There is no acute fracture or malalignment. There is moderate degenerative change of the lower cervical spine. Multilevel osteophytes are noted. There is moderate bilateral C5-6 neural foraminal narrowing. THORACIC SPINE Three views were obtained. There is no acute fracture or malalignment. There is mild degenerative change with osteophytes. IMPRESSION: Degenerative changes without acute process. Reviewed, Interpreted and Dictated by Werner Howard III, MD Transcribed by Franchesca Gilman Authenticated and [facility]
== END 2023-10-08 23:59 ==
LOC: RAD 16:04
PROVIDERS: PCP Family Medicine; Visit Provider Nurse Practitioner Family
DX: M54.2 Cervicalgia (principal); M54.6 Pain in thoracic spine
CPT/HCPCS: 72084

== ENCOUNTER 2023-10-13 16:47 | Outpatient (CLI) | payer BC, SELFPAY ==
--- NOTE | 2023-10-13 16:47 | MM_ITS ---
PROCEDURE INFORMATION: Exam: MG Bilateral Screening 3D Mammography Exam date and time: 10/13/2023 4:35 PM Age: 63 years old Clinical indication: Screening mammogram TECHNIQUE: Imaging protocol: Bilateral Screening tomosynthesis and 2D mammography including computer-aided detection (CAD) when performed. COMPARISON: 1. MG MM DIG SCREENING MAMM BI W/CAD 10/04/2022 4:31 PM 2. MG MM DIG SCREENING MAMM BI W/CAD 09/28/2021 1:07 PM 3. MG MM DIG SCREENING MAMM BI W/CAD 08/29/2020 8:07 AM 4. MG MM DIG SCREENING MAMM BI W/CAD 08/27/2019 4:01 PM FINDINGS: MAMMOGRAPHY: Breast composition: The breast is heterogeneously dense, which may obscure small masses. Mass: None. Architectural distortion: No new or suspicious architectural distortion. Calcifications: No new or suspicious calcifications are present Asymmetric density: No new or suspicious asymmetric density is present Skin thickening: None. Axillary adenopathy: None. IMPRESSION: No mammographic evidence of malignancy. Recommend annual screening mammography unless otherwise clinically indicated. ASSESSMENT: BI-RADS category 1: Negative
== END 2023-10-13 23:59 ==
LOC: RAD 16:47
PROVIDERS: PCP Family Medicine; Visit Provider Obstetrics & Gynecology
DX: Z12.31 Encounter for screening mammogram for malignant neoplasm of breast (principal)
CPT/HCPCS: 77063; 77067

== ENCOUNTER 2023-10-16 10:48 | Outpatient (CLI) | payer BC, SELFPAY ==
[2023-10-16 12:50] LABS: Troponin I < 0.01 ng/ml (0.00-0.034)
[2023-10-16 13:13] LABS: Triiodothryronine (T3) Uptake 35 % (23.5-40.5)
[2023-10-16 13:27] LABS: Thyroid Stimulating Hormone 0.15 uIU/mL (0.465-4.68)
== END 2023-10-16 23:59 ==
LOC: LAB 10:49
PROVIDERS: PCP Family Medicine; Visit Provider Nurse Practitioner Family
DX: E11.9 Type 2 diabetes mellitus without complications (principal); E78.5 Hyperlipidemia, unspecified; I10 Essential (primary) hypertension; M79.603 Pain in arm, unspecified; R00.2 Palpitations; Z82.49 Family history of ischemic heart disease and other diseases of the circulatory system; Z86.79 Personal history of other diseases of the circulatory system; Z87.891 Personal history of nicotine dependence
CPT/HCPCS: 84436; 84443; 84479; 84484; 93270

== ENCOUNTER 2023-10-23 06:18 | Outpatient (CLI) | payer BC, SELFPAY ==
--- NOTE | 2023-10-23 06:23 | NM_ITS ---
APPROVED REPORT Exam: Nuclear Stress Test Indication: chest pain..soa..palpitations..fatigue Patient Location: Outpatient Stress Tech: Kitty Cocrhan [place] Tech:Jocy Reina ARRT RT(R)(N) Ht: 5 ft 10 in Wt: 278 lbs Bra Size: 48c HR: 59 bpm BP: 202/97 mmHg BSA: 2.40 m2 Rhythm: NSR TID: 1.29 BMI: 39.8 History: chest pain..soa..palpitations..fatigue Procedure: Patient received 0.4 mg of intravenous Lexiscan, resting heart rate 59 bpm, resting blood pressure 202/97 mmHg, with Lexiscan maximum heart rate achieved was 70 bpm which is 85 % of the maximum predicted heart rate and blood pressure was 202/97 mmHg. With Lexiscan, patient denied any complaint of chest pain. Cardiac Stress and Resting SPECT Images: Cardiac Stress and Resting SPECT images were obtained using technetium 99m Myoview 31.4 mCi stress and 10.75 mCi at rest. Resting and stress imaging in supine and prone positions demonstrate a large sized, moderate, partially reversible perfusion defect in the anterior LV wall. There is also a medium sized, moderate, partially reversible perfusion defect in the basal to mid inferior LV wall. There is increased transient ischemic dilatation ratio (TID 1.29), suggestive of possible multivessel disease or balanced ischemia. Gated imaging demonstrates mild reduction in global LV systolic function. There is moderate hypokinesis in the basal inferior and anterior LV cruz. LVEF is calculated at 47%. Conclusion: Large sized, moderate, partially reversible perfusion defect in the anterior LV wall. There is also a medium sized, moderate, partially reversible perfusion defect in the basal to mid inferior LV wall. There is increased transient ischemic dilatation ratio (TID 1.29), suggestive of possible multivessel disease or balanced ischemia. Gated imaging demonstrates mild reduction in global LV systolic function. There is moderate hypokinesis in the basal inferior and anterior LV cruz. LVEF is calculated at 47%. Electronically signed by : Emma Rosales MD 10/29/2023 13:01:58
--- NOTE | 2023-10-23 09:26 | CA_ITS ---
APPROVED REPORT Exam: Pharmacologic Technologist: Kitty Xie, Ht: 5 ft 10 in Wt: 276 lbs BSA: 2.39 m2 HR: 56 bpm BP: 202/97 mmHg Rhythm: NSR Medical History Medications: Lisinopril,,,,, Alprazolam,,,,, Levothyroxine,,,,, Aspirin,,,,, Flonase,,,,, Estradilol,,,,, RoSUVASTATIN,,,,, Co Q10,,,,, Multivitamin,,,,, Metoprolol Succinate ER,,,,, Furosemide,,,,, Stress Test Details Test: LEXISCAN Reason for pharmacologic stress test: physical limitation. HR Resting HR: 59 bpm Max Heart Rate (APMHR): 156 bpm Max HR Achieved: 70 bpm Target HR (85% APMHR): 133 bpm % of APMHR: 45 Recovery HR: 62 bpm BP Resting BP: 202.0/97.0 mmHg Max BP: 202.0/97.0 mmHg Recovery BP: 185.0/86.0 mmHg ECG Resting ECG: Sinus bradycardia Stress ECG: No significant ST changes Arrhythmia: PACs Clinical Exercise duration: 04:01 min Highest Stage Achieved: Exercise capacity: 1.0 METs Stress ECG Conclusion Symptoms: mild SOA & head discomfort. No CP. Arrhythmias/Ectopy: Occasional PAC. ST-T Changes: No significant ST changes. Conclusion: Unremarkable Lexiscan stress. Myoview images reported separately. Pt will monitor BP at home & notify provider if remains elevated. Test Summary REST . . . . . . . Resting REST 05:15 . . 59 . 202/ 97 . . Stage 1 01:00 . . 64 . . . . Stage 2 01:00 . . 68 . 197/ 86 . . Stage 3 01:00 . . 65 . 191/ 89 . . Stage 4 01:00 . . 63 . 182/ 82 . . Stage 4 01:01 . . 63 . 182/ 82 . Stop exercise at 04:01 RECOVERY 01:00 . . 65 . . . . RECOVERY 02:00 . . 62 . . . . RECOVERY 03:00 . . 65 . 167/ 84 . . RECOVERY 04:00 . . 62 . 181/ 91 . . RECOVERY 05:00 . . 63 . 185/ 86 . . RECOVERY 05:22 . . 64 . 185/ 86 . . Electronically signed by : Emma Rosales MD 10/29/2023 13:00:03
[2023-10-23] MEDS: ISOTOPE MYOVIEW (PER STUDY) 1 DOSE IV (09:31)
[2023-10-23] MEDS: SODIUM CHLORIDE 0.9% 10ML SYR (RAD ONLY) 10 ML IV ×2 (09:31)
[2023-10-23] MEDS: REGADENOSON 0.4MG/5ML SYRINGE 0.400000000000000022 MG IV (09:31)
== END 2023-10-23 23:59 ==
LOC: RAD 06:20
PROVIDERS: PCP Family Medicine; Visit Provider Nurse Practitioner Family
DX: I10 Essential (primary) hypertension (principal); R00.2 Palpitations; M79.603 Pain in arm, unspecified; E11.9 Type 2 diabetes mellitus without complications; E78.5 Hyperlipidemia, unspecified; Z86.79 Personal history of other diseases of the circulatory system; Z82.49 Family history of ischemic heart disease and other diseases of the circulatory system; Z87.891 Personal history of nicotine dependence
CPT/HCPCS: 78452; 93017; 93018; A9502; J2785

== ENCOUNTER 2023-10-28 07:38 | Outpatient (CLI) | payer BC, SELFPAY ==
--- NOTE | 2023-10-28 07:47 | CA_ITS ---
APPROVED REPORT EXAM: Comprehensive 2D, Doppler, and color-flow Echocardiogram Load Out Supervisor: ELBERT Sams, RVS Ht: 5 ft 10 in Wt: 276lbs BSA: 2.39 BP: 142/82 mmHg Indications: HTN, DM, Ex-smoker, SOB 2D Dimensions IVSd 1.07 cm LVEF (Visual) 49.80 % PWd 0.88 cm LA Volume 68.10 mL LVDd 5.08 cm LA Volume Index 27.80 mL/m2 (M/F) 16-34 LVDs 3.79 cm Left Atrium 3.30 cm M-Mode Dimensions LA Diam 3.09 cm (1.9-4.0) EPSs 0.80 cm TAPSE 2.87 (<1.7) LV Diastology E Decel Time 293 (160-240 msec) E/A Ratio 0.72 MED A' 8.90 cm/s LAT A' 10.70 cm/s Aortic Valve AMIE Index 1.11 cm2/m2 AoV Peak Alvin. 112.0 (50-130 cm/s) AO Peak GR. 5.10 mmHg AO Mean GR. 2.50 (<5 mmHg) AO VTI 22.8 (18-25 cm) AMIE (VTI) 2.73 (2.5-4.5 cm2) Mitral Valve MV A Velocity 94.0 (40-130 cm/s) E/A Ratio 0.72 Left Ventricle The left ventricle is normal size. The left ventricular systolic function is normal. The left ventricular ejection fraction is within the normal range. There is normal left ventricular wall thickness. There is normal LV segmental wall motion. The left ventricular diastolic function is normal. LVEF is 55%. Right Ventricle The right ventricle is normal size. The right ventricular systolic function is normal. Atria The left atrium size is normal. The right atrium size is normal. There is no Doppler evidence of interatrial shunt. Aortic Valve The aortic valve is mildly thickened. There is no aortic valvular stenosis. Trace aortic regurgitation. Mitral Valve The mitral valve leaflets are mildly thickened. No evidence of mitral valve stenosis. Trace mitral regurgitation. Tricuspid Valve The tricuspid valve leaflets are thin and pliable. Trace tricuspid regurgitation. There is insufficient TR jet to estimate RVSP. Pulmonic Valve The pulmonary valve is normal in structure. Trace pulmonic regurgitation. Great Vessels The aortic root is normal in size. The ascending aorta is not well-visualized. IVC is normal in size and collapses >50% with inspiration. Pericardium There is no pericardial effusion. Other Information Study Quality: Fair Conclusion Normal biventricular systolic function. No significant valvular stenosis or regurgitation. Electronically signed by : Emma Rosales MD 11/01/2023 19:30:34
== END 2023-10-28 23:59 ==
PROVIDERS: PCP Family Medicine; Visit Provider Nurse Practitioner Family
DX: R00.2 Palpitations (principal); I10 Essential (primary) hypertension; E11.9 Type 2 diabetes mellitus without complications; E78.5 Hyperlipidemia, unspecified; M79.603 Pain in arm, unspecified; Z82.49 Family history of ischemic heart disease and other diseases of the circulatory system; Z86.79 Personal history of other diseases of the circulatory system; Z87.891 Personal history of nicotine dependence
CPT/HCPCS: 93306

== ENCOUNTER 2023-11-07 09:58 | Day surgery (SDC) | payer BC, SELFPAY ==
[2023-11-07] VITALS (13 sets, daily range): BP systolic 108–161; BP diastolic 56–73; PULSE 59–70; RESP 15–18; O2SAT 93–99; BMI 40.3
--- NOTE | 2023-11-07 07:16 | IR_ITS ---
APPROVED REPORT Patient Location: Outpatient Electric Refrigerator Servicer: RICHELLE Jo RT (R) PROCEDURES Left heart catheterization Left ventriculogram Selective coronary angiogram INDICATION High risk abnormal Myoview, Angina pectoris Informed consent was obtained prior to the procedure. COMPLICATIONS None Estimated Blood Loss: Less than 10 mls TECHNIQUE One percent lidocaine used to anesthetize the right anterior aspect of the wrist. The right radial artery was accessed via the Seldinger technique. A 6 Hungarian sheath was placed in the right radial artery. 2.5 mg of Verapamil, 800 mcg of nitroglycerin, 1mg Lidocaine and 5000 U Heparin were given through the arterial sheath. The papa catheter was also used to perform left heart catheterization, left ventriculogram and selective coronary angiogram. At the end of the procedure the sheath was removed good hemostasis was achieved using Traclet band, patient was transferred to the postop holding area in stable condition. ANGIOGRAPHIC RESULTS The left main artery Normal The left anterior descending artery Normal The circumflex artery Dominant normal The right coronary artery Normal The JOHNSON ventriculogram reveals Normal 65% The left ventricular end-diastolic pressure Severely elevated at 25 to 30 mmHg IMPRESSION Normal coronary arteries Normal ejection fraction Severely elevated LVEDP consistent with HFpEF PLAN 1. Diuresis 2. Recommend sleep study 3. Weight loss recommended 4. Cardiac rehabilitation Electronically signed by : Vito Cameron MD 11/07/2023 12:20:41
[2023-11-07 10:21] LABS: Basophils # 0.1 K/mm3 (0-0.2); Basophils % 0.9 % (0.1-2.0); Eosinophils # 0.2 K/mm3 (0.0-0.4); Eosinophils % 2.6 % (0.1-12.0); Hematocrit 43.1 % (37.0-47.0); Hemoglobin 14.3 g/dL (12.2-16.2); Lymphocytes # 2.5 K/mm3 (0.7-4.5); Lymphocytes % 26.9 % (10-50); Mean Corpuscular HGB Conc 33.2 g/dL (31.8-35.4); Mean Corpuscular Hemoglobin 31.4 pg (27.0-31.2); Mean Corpuscular Volume 94.5 fl (81-99); Monocytes # 0.5 K/mm3 (0.1-1.0); Monocytes % 5.1 % (1.7-9.3); Neutrophils % 64.5 % (37.0-80.0); Platelet Count 374 K/mm3 (142-424); Red Blood Count 4.56 M/mm3 (4.20-5.40); Red Cell Distribution Width 14.6 % (11.5-17.5); White Blood Count 9.3 K/mm3 (4.8-10.8)
[2023-11-07 10:29] LABS: Anion Gap 5.5 mEq/L (5-15); Blood Urea Nitrogen 31 mg/dl (7-17); Calcium 8.9 mg/dl (8.4-10.2); Carbon Dioxide 35 mmol/L (22.0-30.0); Chloride 102 mmol/L (98-107); Creatinine Clearance Estimated 114 mL/min (50-200); Estimated Glomerular Filt Rate 84 ml/min (>60); GFR (African American) 102 ML/MIN (>60); Glucose 107 mg/dl (74-100); Potassium 4.5 mmoL/L (3.5-5.1); Sodium 138 mmol/L (136-145)
[2023-11-07] MEDS: diphenhydrAMINE 50MG/ML VIAL 50 MG IV (10:35)
[2023-11-07] MEDS: VERAPAMIL 2.5MG/ML 2ML VIAL 2.5 MG IV (10:35)
[2023-11-07] MEDS: LIDOCAINE 1% 10ML MDV 20 ML IJ (10:36)
[2023-11-07] MEDS: NITROGLYCERIN 800MCG/8ML SYR (CATH LAB) 800 MCG IA (10:36)
[2023-11-07] MEDS: FENTANYL 100MCG/2ML VIAL 50 MCG IV (10:37)
[2023-11-07] MEDS: 0.9 % SODIUM CHLORIDE 500 ML 25 ML IV (10:37)
[2023-11-07] MEDS: MIDAZOLAM HCL 1MG/1ML 5ML VIAL 1 MG IV (10:37)
[2023-11-07] MEDS: HEPARIN 1,000 UNITS/500ML NS (CATH LAB) 3000 UNIT IV (10:37)
[2023-11-07] MEDS: HEPARIN 1,000 UNITS/ML 10ML VIAL (CATH LAB) 10000 UNIT IV (10:37)
[2023-11-07] MEDS: IOPAMIDOL-370 (76%);100ML BOTTLE 40 ML IV (13:59)
== END 2023-11-07 14:00 | disposition home or self-care (01) ==
PROVIDERS: PCP Family Medicine; Visit Provider Internal Medicine
DX: I20.89 Other forms of angina pectoris (principal); R06.02 Shortness of breath; R94.39 Abnormal result of other cardiovascular function study; I50.30 Unspecified diastolic (congestive) heart failure; Z79.899 Other long term (current) drug therapy; I11.0 Hypertensive heart disease with heart failure; E78.5 Hyperlipidemia, unspecified; E11.9 Type 2 diabetes mellitus without complications
CPT/HCPCS: 36415; 80048; 85025; 93458; 99152; C1725; C1769; J1644; Q9967

== ENCOUNTER 2023-11-18 12:37 | Outpatient (CLI) | payer BC, SELFPAY ==
--- NOTE | 2023-11-18 12:54 | MR_ITS ---
FINAL REPORT TECHNIQUE: Multiplanar and multisequence imaging of the cervical spine was obtained. CLINICAL HISTORY: NECK AND BACK PAIN. NECK PAIN WORSE ON RIGHT SIDE. PAIN RADIATES DOWN TO ELBOW. MEDIAL SIDED FOREARM NUMBNESS. FINDINGS: There is straightening of the lordosis. Alignment is otherwise normal. Vertebral body height is preserved. Signal intensity within the substance of the spinal cord is normal. Bone marrow signal intensity is within normal limits. No acute paraspinal abnormality. C2/3: An annular disc bulge is present with degenerative endplate changes and facet osteoarthropathy. There is moderate right neural foraminal narrowing. C3/4: An annular disc bulge is present with degenerative endplate changes and facet osteoarthropathy. There is mild right and moderate left neural foraminal narrowing. C4/5: An annular disc bulge is present with degenerative endplate changes and facet osteoarthropathy. C5/6: An annular disc bulge is present with degenerative endplate changes and facet osteoarthropathy. There is mild central stenosis. There is severe right and moderate left neural foraminal narrowing. C6/7: An annular disc bulge is present with degenerative endplate changes and facet osteoarthropathy. There is mild central stenosis. There is moderate right and severe left neural foraminal narrowing. C7/T1: An annular disc bulge is present. There is no significant canal stenosis or neural foraminal narrowing. IMPRESSION: Multilevel degenerative disc disease, most pronounced at C5-6 and C6-7. Reviewed, Interpreted and Dictated by Shona Demarco MD Transcribed by Barby Ovalle Authenticated and . [facility]
[2023-11-18 13:15] LABS: Basophils # 0.1 K/mm3 (0-0.2); Basophils % 0.5 % (0.1-2.0); Eosinophils # 0.1 K/mm3 (0.0-0.4); Eosinophils % 0.9 % (0.1-12.0); Hematocrit 49.1 % (37.0-47.0); Hemoglobin 15.5 g/dL (12.2-16.2); Lymphocytes # 2.5 K/mm3 (0.7-4.5); Lymphocytes % 23.1 % (10-50); Mean Corpuscular HGB Conc 31.5 g/dL (31.8-35.4); Mean Corpuscular Hemoglobin 30.7 pg (27.0-31.2); Mean Corpuscular Volume 97.3 fl (81-99); Mean Platelet Volume 9.5 fl (7.4-10.4); Monocytes # 0.6 K/mm3 (0.1-1.0); Monocytes % 5.1 % (1.7-9.3); Neutrophils # 7.6 K/mm3 (1.8-7.8); Neutrophils % 70.5 % (37.0-80.0); Platelet Count 457 K/mm3 (142-424); Red Blood Count 5.04 M/mm3 (4.20-5.40); Red Cell Distribution Width 13.7 % (11.5-17.5); White Blood Count 10.8 K/mm3 (4.8-10.8)
[2023-11-18 13:54] LABS: Anion Gap 16.7 mEq/L (5-15); Blood Urea Nitrogen 70 mg/dl (7-17); Calcium 10.8 mg/dl (8.4-10.2); Carbon Dioxide 27 mmol/L (22.0-30.0); Chloride 97 mmol/L (98-107); Estimated Glomerular Filt Rate 35 ml/min (>60); GFR (African American) 42 ML/MIN (>60); Glucose 100 mg/dl (74-100); Potassium 5.7 mmoL/L (3.5-5.1); Sodium 135 mmol/L (136-145)
== END 2023-11-18 23:59 ==
LOC: RAD 12:38
PROVIDERS: Nurse Practitioner; PCP Family Medicine; Visit Provider Nurse Practitioner Family
DX: I50.30 Unspecified diastolic (congestive) heart failure (principal); M54.2 Cervicalgia; M54.9 Dorsalgia, unspecified
CPT/HCPCS: 36415; 72141; 76376; 80048; 85025

== ENCOUNTER 2023-11-22 14:37 | Emergency (ER) | payer BC, SELFPAY ==
[2023-11-22] VITALS (9 sets, daily range): BP systolic 97–133; BP diastolic 60–90; PULSE 79–97; RESP 15; TEMP 36.5–36.6; O2SAT 92–100; BMI 40.4
--- NOTE | 2023-11-22 15:04 | PC.NURSE ---
Dr. Bowman at [facility] for pt eval
--- NOTE | 2023-11-22 15:12 | XR_ITS ---
PROCEDURE INFORMATION: Exam: XR Chest Exam date and time: 11/22/2023 3:33 PM Age: 63 years old Clinical indication: Other: Weakness; Additional info: Weakness, history of effusion TECHNIQUE: Imaging protocol: Radiologic exam of the chest. Views: 2 views. COMPARISON: No relevant prior studies available. FINDINGS: Lungs: Unremarkable. No consolidation. Pleural spaces: Unremarkable. No pleural effusion. No pneumothorax. Heart/Mediastinum: Unremarkable. No cardiomegaly. Bones/joints: Unremarkable. Intraperitoneal space: Surgical clips in the left upper quadrant of the abdomen IMPRESSION: No acute process
--- NOTE | 2023-11-22 15:23 | ECG_ITS ---
APPROVED REPORT Exam: Resting ECG HR:85 bpm ECG Measurements Heart Rate 85 AXES [place] 152 P 59 QRSd 98 QRS 46 QT 353 T 43 QTc 395 Conclusion SINUS RHYTHM Electronically signed by : JEREMÍAS JORDAN, 11/22/2023 21:43:54
[2023-11-22 15:25] LABS: Basophils # 0.1 K/mm3 (0-0.2); Basophils % 1.3 % (0.1-2.0); Eosinophils # 0.1 K/mm3 (0.0-0.4); Eosinophils % 0.5 % (0.1-12.0); Hematocrit 48.3 % (37.0-47.0); Hemoglobin 15.2 g/dL (12.2-16.2); Lymphocytes # 3.8 K/mm3 (0.7-4.5); Lymphocytes % 33.6 % (10-50); Mean Corpuscular HGB Conc 31.3 g/dL (31.8-35.4); Mean Corpuscular Hemoglobin 31.8 pg (27.0-31.2); Mean Corpuscular Volume 101.4 fl (81-99); Monocytes # 0.6 K/mm3 (0.1-1.0); Monocytes % 5.4 % (1.7-9.3); Neutrophils # 6.6 K/mm3 (1.8-7.8); Neutrophils % 59.1 % (37.0-80.0); Platelet Count 416 K/mm3 (142-424); Red Blood Count 4.77 M/mm3 (4.20-5.40); Red Cell Distribution Width 13.9 % (11.5-17.5); White Blood Count 11.2 K/mm3 (4.8-10.8)
[2023-11-22 15:32] LABS: Coronavirus 19, PCR Not Detected (NotDetected); Influenza A, PCR Not Detected (NotDetected); Influenza B, PCR Not Detected (NotDetected)
[2023-11-22 15:32] LABS: Alanine Aminotransferase 24 U/L (12-78); Albumin Level 4.5 g/dl (3.5-5.0); Albumin/Globulin Ratio 1.4 (1.1-1.8); Alkaline Phosphatase 113 U/L (38-126); Anion Gap 15.8 mEq/L (5-15); Aspartate Amino Transferase 27 U/L (14-36); Bilirubin,Total 0.3 mg/dl (0.2-1.3); Blood Urea Nitrogen 74 mg/dl (7-17); Calcium 9.4 mg/dl (8.4-10.2); Carbon Dioxide 27 mmol/L (22.0-30.0); Chloride 102 mmol/L (98-107); Creatine Kinase 37 U/L (30-135); Creatinine Clearance Estimated 68 mL/min (50-200); Estimated Glomerular Filt Rate 30 ml/min (>60); GFR (African American) 37 ML/MIN (>60); Globulin 3.3 g/dL (1.3-3.2); Glucose 149 mg/dl (74-100); Potassium 4.8 mmoL/L (3.5-5.1); Sodium 140 mmol/L (136-145); Total Protein,Serum 7.8 g/dl (6.3-8.2)
[2023-11-22 15:42] LABS: Magnesium 2.5 mg/dl (1.6-2.3)
[2023-11-22 15:44] LABS: NT Pro Brain Natriuretic Pep. < 20.0 pg/mL (0-125)
--- NOTE | 2023-11-22 15:44 | ED_ITS ---
Discharge Plan Disposition Patient Disposition: Home, Self-Care Condition: Good Prescriptions Prescriptions: No Action metoprolol succinate 100 mg tablet extended release 24 hr 150 mg PO DAILY Patient Comments: Patient sts taking 1 1/2 tabs a day tramadol 50 mg tablet 50 mg PO DAILY tizanidine 4 mg tablet 4 mg PO ONCE cyclobenzaprine 5 mg tablet 5 mg PO DAILY estradiol 2 mg tablet 2 mg PO DAILY 30 Days Qty: 30 2RF multivitamin [Daily Multi-Vitamin] Tablet 1 tab PO DAILY aspirin 81 mg tablet 81 mg PO DAILY coenzyme Q10 [Co Q-10] 30 mg capsule 30 mg PO DAILY levothyroxine 112 mcg tablet 224 mcg PO DAILY Patient Comments: TAKE 2 TABLETS BY MOUTH ONCE DAILY amlodipine [Norvasc] 5 mg tablet 5 mg PO DAILY Qty: 30 5RF Ozempic 0.25 mg or 0.5 mg (2 mg/3 mL) pen injector 0.5 mg SQ WEEKLY Qty: 3 0RF alprazolam 0.25 mg tablet 0.25 mg PO BID lisinopril 20 mg tablet 20 mg PO BID rosuvastatin 5 mg tablet See Rx Instructions .ROUTE .COMPLEX Qty: 30 0RF Dose Instruction: Take 1 tablet by mouth once daily Rx Instructions: Take 1 tablet by mouth once daily furosemide [Lasix] 80 mg Tablet 80 mg PO DAILY 30 Days Qty: 30 6RF Referrals Follow up/Referrals: Coleman Flaherty MD [Primary Care Provider] - See instructions Activity Restrictions/Add. Instructions Additional Instructions/Restrictions: Call your family doctor to establish care for this visit to the emergency department and schedule follow-up within 48 hours to ensure improvement. If you have any worsening of your condition or any other concerning signs or symptoms, return to the emergency department or your primary care doctor for further evaluation. Follow-up with your family doctor to get repeat labs to make sure your kidney f unction is improving. Discontinue taking your Lasix. Make sure you develop an approximate dry weight by weighing yourself every morning without clothes. If you deviate 5 pounds higher than your typical dry weight, this would be an indication to take Lasix. Also talk to your doctor about lower extremity stockings to improve your swelling. Clinical Impressions Clinical Impression: Acute dehydration, Weakness, DIANE (acute kidney injury) Discharge ED Provider: Farshad Bowman General Adult HPI General Chief complaint: Recheck/Abnormal Lab/Rx Stated complaint: low bp Time Seen by Provider: 11/22/23 14:59 Mode of Arrival: Ambulatory Source of Information: Patient Limitations: No Limitations Description of Symptoms (Recalled from ER Triage Doc. by RN): pt presents to ED with hypotension. pt does see care administrative tech. pt was seen by pcp yesterday for recheck and all results were normal. pt reports she took her normal medications yesterday am. pt reports low blood pressure readings began last night. pt reports dizziness, weakness, lightheadedness associated with symptoms. History of Present Illness HPI narrative: 63-year-old female history of hypertension, hyperlipidemia, diabetes, diastolic heart failure, recent medication changes presenting with weakness. She states that she has been feeling weak the past few days. Has had numerous medication and cardiac medication changes in the past couple of weeks. No fevers, but patient feels that she has been getting chilled since changes in Lasix. Denies vomiting, diarrhea, abdominal pain, urinary symptoms, chest pain, shortness of breath, or any other concerns. No syncopal episodes. Unsure what is causing it, so came to the emergency department for further evaluation. Related Data Home Medications Medication Instructions Recorded Confirmed alprazolam 0.25 mg tablet 0.25 mg PO BID 09/03/18 11/13/23 lisinopril 20 mg tablet 20 mg PO BID 09/03/18 11/13/23 aspirin 81 mg tablet 81 mg PO DAILY 10/16/23 11/13/23 coenzyme Q10 30 mg capsule (Co 30 mg PO DAILY 10/16/23 11/13/23 Q-10) levothyroxine 112 mcg tablet 224 mcg PO DAILY 10/16/23 11/13/23 multivitamin (Daily Multi-Vitamin 1 tab PO DAILY 10/16/23 11/13/23 tablet) cyclobenzaprine 5 mg tablet 5 mg PO DAILY 10/24/23 11/13/23 tizanidine 4 mg tablet 4 mg PO ONCE 10/24/23 11/13/23 tramadol 50 mg tablet 50 mg PO DAILY 10/24/23 11/13/23 metoprolol succinate 100 mg 150 mg PO DAILY BLOOD PRESSURE 11/13/23 11/13/23 tablet,extended release 24 hr Previous Rx's Medication Instructions Recorded rosuvastatin 5 mg tablet See Rx Instructions .Route 06/30/23 .COMPLEX #30 tabs estradiol 2 mg tablet 2 mg PO DAILY 30 days #30 tabs 10/24/23 amlodipine 5 mg tablet (Norvasc) 5 mg PO DAILY #30 tabs 10/30/23 furosemide 80 mg tablet (Lasix) 80 mg PO DAILY 30 days #30 tabs 11/07/23 semaglutide 0.25 mg or 0.5 mg (2 0.5 mg (0.736 mL) SQ WEEKLY #3 mL 11/13/23 mg/3 mL) subcutaneous pen injector (Ozempic) Allergies Allergy/AdvReac Type Severity Reaction Status Date / Time erythromycin base Allergy Unknown Verified 11/13/23 10:31 [From ERYTHROCIN] Penicillins [PENICILLINS] Allergy Unknown Verified 11/13/23 10:31 [facility] Disclaimer: The information contained in this section may have been updated after the patient was seen, as this information can be updated by other users. Medical History (Updated 11/22/23 @ 17:59 by Farshad Bowman MD) (HFpEF) heart failure with preserved ejection fraction Abnormal cardiovascular stress test Atypical angina Daytime somnolence Diabetes mellitus History of hypertension Hyperlipemia Hypertension Shoulder pain, bilateral SOB (shortness of breath) on exertion Spleen absent Surgical History H/O thyroidectomy H/O total hysterectomy History of total left knee replacement Family History Other Unknown family medical history Social History Smoking Status: Former smoker alcohol intake: never substance use type: denies use current occupational status: employed Travel in the last 8 weeks: None ROS Obtained: Yes All systems reviewed & no additional complaints except as documented Physical Exam General General appearance: alert and in no apparent distress Head Head exam: atraumatic and normocephalic Eye Eye exam: Present normal appearance, PERRL and EOMI ENT ENT exam: Present mucous membranes moist Neck Neck exam: Present normal inspection, full ROM and trachea midline Respiratory Respiratory exam: Present normal lung sounds bilaterally; Absent respiratory distress, wheezes, stridor, accessory muscle use or prolonged expiratory phase Cardiovascular Cardiovascular exam: Present regular rate and normal rhythm Abdominal Exam Abdominal exam: Present soft; Absent distention, tenderness, guarding, rebound or rigidity Extremities Exam Extremities exam: Absent edema Neurological Exam Neurological exam: Present alert, oriented X3, CN II-XII intact and normal gait; Absent motor sensory deficit Skin Skin exam: Present warm and dry; Absent diaphoresis or erythema Medical Decision Making Medical Records Medical records reviewed: Yes I reviewed the patient's medical records. Vahe Inquiry Pt receiving controlled substance: No Vahe was queried for this patient: No Vital Signs: 11/22/23 14:37 11/22/23 14:40 11/22/23 14:47 Temperature 97.7 F Temperature Source Oral Pulse Rate 97 H 94 H Pulse Rate [Left Radial] 85 Respiratory Rate 15 Blood Pressure 129/90 133/71 Blood Pressure [Right Arm] 129/90 Blood Pressure Mean 103 106 Blood Pressure Mean [Right Arm] 103 Blood Pressure Source 02 Sat by Pulse Oximetry 97 98 100 Oxygen Delivery Method Room Air 11/22/23 15:01 11/22/23 15:30 11/22/23 16:29 Temperature Temperature Source Pulse Rate 87 83 88 Pulse Rate [Left Radial] Respiratory Rate Blood Pressure 104/60 L 125/70 100/68 L Blood Pressure [Right Arm] Blood Pressure Mean 76 88 Blood Pressure Mean [Right Arm] Blood Pressure Source 02 Sat by Pulse Oximetry 98 96 98 Oxygen Delivery Method 11/22/23 17:00 11/22/23 17:30 11/22/23 18:08 Temperature 97.9 F Temperature Source Oral Pulse Rate 79 83 Pulse Rate [Left Radial] Respiratory Rate 15 Blood Pressure 97/68 L 110/70 114/81 Blood Pressure [Right Arm] Blood Pressure Mean 82 Blood Pressure Mean [Right Arm] Blood Pressure Source Automatic Cuff 02 Sat by Pulse Oximetry 92 L 96 Oxygen Delivery Method Room Air Room Air Room Air Lab Data Lab Results 11/22/23 15:17: WBC 11.2 H, RBC 4.77, Hgb 15.2, Hct 48.3 H, MCV 101.4 H, MCH 31.8 H, MCHC 31.3 L, RDW 13.9, Plt Count 416, MPV 10.0, Neut % (Auto) 59.1, Lymph % (Auto) 33.6, Wilkin % (Auto) 5.4, Eos % (Auto) 0.5, Baso % (Auto) 1.3, Neut # (Auto) 6.6, Lymph # (Auto) 3.8, Wilkin # (Auto) 0.6, Eos # (Auto) 0.1, Baso # (Auto) 0.1, ESR 16, Sodium 140, Potassium 4.8, Chloride 102, Carbon Dioxide 27, Anion Gap 15.8 H, BUN 74 H, Creatinine 1.70 H, Estimated Creat Clear 68, Estimated GFR 30 L, Est GFR ( Amer) 37 L, Glucose 149 H, Calcium 9.4, Magnesium 2.5 H, Total Bilirubin 0.3, AST 27, ALT 24, Alkaline Phosphatase 113, Total Creatine Kinase 37, Troponin I < 0.01, NT-Pro-B Natriuret Pep < 20.0, Total Protein 7.8, Albumin 4.5, Globulin 3.3 H, Albumin/Globulin Ratio 1.4, TSH 6.46 H, Thyroxine (T4) 14.7 H 11/22/23 15:23: SARS-CoV-2 (PCR) Not detected, Influenza A Untype (PCR) Not detected, Influenza Type B (PCR) Not detected 11/22/23 16:00: Urine Color Yellow, Urine Appearance Clear, Urine pH 5.5, Ur Specific [place] 1.010, Urine Protein Negative, Urine Glucose (UA) Negative, Urine Ketones Negative, Urine Blood Negative, Urine Nitrate Negative, Urine Bilirubin Negative, Urine Urobilinogen 0.2, Ur Leukocyte Esterase Negative, Urine RBC None, Urine WBC None, Ur Squamous Epith Cells None, Urine Bacteria None 11/22/23 15:17 11/22/23 15:17 Orders (Tests/Meds): ED MEDICATIONS Discontinued Medications Generic Name Dose Route Start Last Admin Trade Name Shanika PRN Reason Stop Dose Admin Lactated Ringer's 1,000 mls @ 999 mls/hr 11/22/23 15:47 11/22/23 16:15 Lactated Ringer's 1000 Ml Bag IV 11/22/23 16:47 999 mls/hr .Q1H1M ONE Administration ORDERS Category Date Time Status CXR 2 view (NOT portable) [XR chest 2V] Stat Exams 11/22/23 15:12 Completed POCUS Point of Care (ER Only) Stat Exams 11/22/23 15:12 Taken Brain Natriuretic Peptide Stat Lab 11/22/23 15:17 Completed CK [Creatine Kinase] Stat Lab 11/22/23 15:17 Completed Complete Blood Count Auto Diff Stat Lab 11/22/23 15:17 Completed Comprehensive Metabolic Panel Stat Lab 11/22/23 15:17 Completed ESR [Erythrocyte Sedimentation Rate] Stat Lab 11/22/23 15:17 Completed Magnesium Stat Lab 11/22/23 15:17 Completed Rapid PCR Covid and Flu A/B Stat Lab 11/22/23 15:23 Completed T4 (Thyroxine) Stat Lab 11/22/23 15:17 Completed TSH [Thyroid Stimulating Hormone] Stat Lab 11/22/23 15:17 Completed Troponin I Stat Lab 11/22/23 15:17 Completed Urinalysis and Microscopic Stat Lab 11/22/23 16:00 Completed HEART Score History (anamnesis): Slightly suspicious ECG: Normal Age: 45-65 years Risk factors: 1-2 risk factors Troponin: </= normal limit HEART Score: 2 Medical Decision Narrative: 63-year-old female history of hypertension, hyperlipidemia, diabetes, diastolic heart failure, recent medication changes presenting with weakness. She states that she has been feeling weak the past few days. Has had numerous medication and cardiac medication changes in the past couple of weeks. No fevers, but patient feels that she has been getting chilled since changes in Lasix. Denies vomiting, diarrhea, abdominal pain, urinary symptoms, chest pain, shortness of breath, or any other concerns. No syncopal episodes. Unsure what is causing it, so came to the emergency department for further evaluation. It should be noted that patient has hypertension which does not seem to be treated at goal and is currently complicating care. Also complicated by numerous recent medication changes. History was obtained via conversation with patient and . On arrival, patient hemodynamically stable, alert, oriented x4, appropriate, GCS 15, moving all extremities spontaneously, pupils equal and reactive to light. Full physical exam performed and significant for normotensive woman in no acute distress. Cardiac exam within normal limits. Nontachycardic. She is afebrile, lungs are clear to auscultation bilaterally, normal heart sounds. No lower extremity edema, pulses equal and symmetric. Abdomen and flanks nontender. Differential includes dehydration, medication side effect, metabolic abnormality, endocrinologic abnormality, CHF, ACS, MT, pneumothorax, UTI, pneumo brenda, among others. Patient was given 1 L fluids for symptomatic management and correction of unde rlying abnormalities. Patient also tolerating p.o. intake without issue. Workup independently interpreted and significant for mild leukocytosis, but nonactionable. Chemistry with concern for dehydration with BUN 74, creatinine 1.7 and decreased GFR. Magnesium unremarkable, thyroid studies nonactionable. Urinalysis without concern for UTI. Chest x-ray without acute cardiopulmonary airspace disease. See radiology read for full review of final results. Independent interpretation of EKG shows sinus rhythm 85 beats a minute with no ST or T wave changes concerning for acute ischemia. FL, QRS, QT intervals within normal limits. [place] normal. Bedside echo without effusion and no abnormal findings. Heart score 2. On reevaluation, patient resting comfortably in bed. Extensive conversation was had with patient and regarding discontinuing Lasix, establishing care with family doctor, establishing dry weight and daily weights to determine need for Lasix on a daily basis, they voiced their understanding. Given patient presentation, workup, history, this most likely represents dehydration in the setting of diuretic use. Because patient at baseline without signs or symptoms of clinical decompensation, deemed appropriate for discharge. Results were relayed to patient who voiced understanding and were agreeable to outpatient management and follow up. At the time of discharge the patient was hemodynamically stable, tolerating PO, and mobilizing appropriately. Procedures Limited Ultrasound Indication:: Limited cardiac ultrasound Indication: Weakness, history of effusion Identified cardiac views: -Cardiac parasternal long axis -Cardiac parasternal short axis Findings: -Cardiac activity present -Gross wall motion normal -Pericardial effusion absent -Right heart strain absent Impression: -Normal Images were saved to permanent archive The study was technically adequate CPT: 62618 This study was performed by me, and I personally interpreted all images/videos. Based on my clinical judgement, these images were adequate and did not necessitate further imaging. Critical Care Critical Care Time Critical Care Time: No
[2023-11-22 15:45] LABS: Troponin I < 0.01 ng/ml (0.00-0.034)
[2023-11-22 15:49] LABS: T4 (Thyroxine) 14.7 ug/dl (5.53-11.0)
[2023-11-22 16:03] LABS: Thyroid Stimulating Hormone 6.46 uIU/mL (0.465-4.68)
[2023-11-22 16:04] LABS: Erythrocyte Sedimentation Rate 16 mm/hr (0-30)
[2023-11-22 16:12] LABS: Microscopic, Urine URINE MICROSCOPIC (MICROSCOPIC)
[2023-11-22 16:13] LABS: Appearance,Urine CLEAR (Clear); Bilirubin,Urine Negative (Negative); Blood, Urine Negative (Negative); Color,Urine YELLOW (Yellow); Glucose,Urine (UA) Negative (Negative); Ketones,Urine Negative (Negative); Leukocyte Esterase,Urine Negative (Negative); Nitrate,Urine Negative (Negative); PH,Urine 5.5 (5.0-8.5); Protein,Urine Negative (Negative); Urobilinogen,Urine 0.2 EU/dl (0.2)
[2023-11-22] MEDS: LACTATED RINGERS 1000ML 1,000 ML 999 ML IV (16:15)
--- NOTE | 2023-11-22 16:29 | PC.NURSE ---
Rounded on pt. No needs voiced at this time. Call light within reach.
== END 2023-11-22 18:09 | disposition home or self-care (01) ==
PROVIDERS: Emergency Provider Emergency Medicine; PCP Family Medicine
DX: N17.9 Acute kidney failure, unspecified (principal); E86.0 Dehydration; R53.1 Weakness; I95.9 Hypotension, unspecified; R42 Dizziness and giddiness; D72.829 Elevated white blood cell count, unspecified; E78.5 Hyperlipidemia, unspecified; E11.9 Type 2 diabetes mellitus without complications; I50.30 Unspecified diastolic (congestive) heart failure; I20.9 Angina pectoris, unspecified; E89.0 Postprocedural hypothyroidism; Z87.891 Personal history of nicotine dependence
CPT/HCPCS: 71046; 80053; 81001; 82550; 83735; 83880; 84436; 84443; 84484; 85025; 85651; 87636; 93005; 96360; 99285

== ENCOUNTER 2023-11-27 16:02 | Outpatient (CLI) | payer BC, SELFPAY ==
[2023-11-27 17:08] LABS: Anion Gap 11.8 mEq/L (5-15); Blood Urea Nitrogen 18 mg/dl (7-17); Calcium 9.5 mg/dl (8.4-10.2); Carbon Dioxide 26 mmol/L (22.0-30.0); Chloride 106 mmol/L (98-107); Estimated Glomerular Filt Rate 63 ml/min (>60); GFR (African American) 76 ML/MIN (>60); Glucose 88 mg/dl (74-100); Potassium 4.8 mmoL/L (3.5-5.1); Sodium 139 mmol/L (136-145)
== END 2023-11-27 23:59 ==
LOC: LAB 16:03
PROVIDERS: PCP Psychiatry & Neurology Sleep Medicine; Visit Provider Nurse Practitioner
DX: E86.0 Dehydration (principal); R53.1 Weakness; N17.9 Acute kidney failure, unspecified
CPT/HCPCS: 36415; 80048

== ENCOUNTER 2023-12-01 14:46 | Outpatient (POV) | payer BC, SELFPAY ==
[2023-12-01 15:10] VITALS: BP 110/70; PULSE 78; RESP 18; O2SAT 96; BMI 39.1
--- NOTE | 2023-12-01 16:25 | A.OFFVIS_ITS ---
[facility] Pain Management SOAP Note Subjective:: Patient is a pleasant 63-year-old female who presents today for follow-up of cervical MRI and EMG findings. Today she rates her pain a 3 out of 10. Patient denies any new trauma or injury. She does state that her pain does seem to be much better than what it had been. She states that it is not as severe and is more manageable. From our last visit we did send her for a cardiology follow-up and states that she did end up having significant findings including diastolic heart failure. She states that are still doing additional workups with intervention. Patient states that the compounded cream we ordered did not seem to do significant relief however she did not use it when she was in more severe pain and it was hard to gauge how well it worked or not. Patient states that she did also get a cervical pillow which has helped with her sleeping and positioning at night. Patient has been prescribed tramadol 50 mg daily and tizanidine 4 mg from her primary care provider. She does state that this has helped. Her Vahe has been reviewed and is appropriate. Review of Systems: General: No recent weight changes, no fever, no sleep disturbances Respiratory: No cough, no shortness of air, no recurring pulmonary infections Cardiovascular/peripheral vascular: No chest pain, no palpitations, no edema, no shortness of breath Gastrointestinal: No new onset incontinence, normal bowel movements reported Genitourinary: No new onset incontinence Musculoskeletal: Neck pain, right/hand pain Psychiatric: [Normal mood/affect] Neurological: [Denies weakness in extremities], [denies balance issues] Objective:: Physical Exam: General: Alert and oriented x3, no acute distress, pleasant and cooperative Lungs: Respirations even and unlabored, symmetrical chest expansion Eyes: PERRL Musculoskeletal: Flexion and extension of cervical [spine] somewhat guarded secondary to pain, [antalgic gait noted] Neurological: Speech clear, no gross sensory deficit TECHNIQUE: Multiplanar and multisequence imaging of the cervical spine was obtained. CLINICAL HISTORY: NECK AND BACK PAIN. NECK PAIN WORSE ON RIGHT SIDE. PAIN RADIATES DOWN TO ELBOW. MEDIAL SIDED FOREARM NUMBNESS. FINDINGS: There is straightening of the lordosis. Alignment is otherwise normal. Vertebral body height is preserved. Signal intensity within the substance of the spinal cord is normal. Bone marrow signal intensity is within normal limits. No acute paraspinal abnormality. C2/3: An annular disc bulge is present with degenerative endplate changes and facet osteoarthropathy. There is moderate right neural foraminal narrowing. C3/4: An annular disc bulge is present with degenerative endplate changes and facet osteoarthropathy. There is mild right and moderate left neural foraminal narrowing. C4/5: An annular disc bulge is present with degenerative endplate changes and facet osteoarthropathy. C5/6: An annular disc bulge is present with degenerative endplate changes and facet osteoarthropathy. There is mild central stenosis. There is severe right and moderate left neural foraminal narrowing. C6/7: An annular disc bulge is present with degenerative endplate changes and facet osteoarthropathy. There is mild central stenosis. There is moderate right and severe left neural foraminal narrowing. C7/T1: An annular disc bulge is present. There is no significant canal stenosis or neural foraminal narrowing. IMPRESSION: Multilevel degenerative disc disease, most pronounced at C5-6 and C6-7. Reviewed, Interpreted and Dictated by Shona Demarco MD Transcribed by Barby Ovalle Authenticated and [facility] Assessment:: Degenerative disc disease of cervical spine with cervical radiculopathy s ymptoms, cervical spinal stenosis possible bilateral median nerve entrapment or carpal tunnel Plan:: I did review over the cervical MRI findings as well as her EMG test findings. I have counseled the patient that it does appear she has multiple things going on including cervical spinal stenosis and degenerative disease with possible possible median nerve entrapment or carpal tunnel syndrome. I have counseled the patient that we can do a cervical epidural and see if this helps with her symptoms however due to her ongoing heart related issues that we will wait until this is cleared up. Patient was very appreciative that we did recommend the additional testing including her cardiac workup because she does state that she feels like she would not have looked any further into the symptoms. I have counseled the patient that she can contact our office when she is ready or needing additional help such as injection therapy. Patient is agreeable to this plan of care. Patient has been instructed to contact the clinic with any concerns before the next appointment. Dr. Johnson has reviewed this note and agrees with this plan of care. This note was dictated using voice recognition software and make contain errors or omissions. [facility] Disclaimer: The information contained in this section may have been updated after the patient was seen, as this information can be updated by other users. Medical History Daytime somnolence (HFpEF) heart failure with preserved ejection fraction SOB (shortness of breath) on exertion Abnormal cardiovascular stress test Atypical angina Shoulder pain, bilateral Hypertension Diabetes mellitus Spleen absent Hyperlipemia History of hypertension Surgical History H/O thyroidectomy History of total left knee replacement H/O total hysterectomy Family History Other Unknown family medical history Social History Smoking Status: Former smoker alcohol intake: never substance use type: denies use current occupational status: retired Travel in the last 8 weeks: None
== END 2023-12-01 23:59 ==
LOC: SC.PAIN 14:46
PROVIDERS: PCP Family Medicine; Visit Provider Nurse Practitioner Family
DX: M50.122 Cervical disc disorder at C5-C6 level with radiculopathy (principal); M50.123 Cervical disc disorder at C6-C7 level with radiculopathy; M48.02 Spinal stenosis, cervical region
CPT/HCPCS: 99212; G0463

== ENCOUNTER 2023-12-11 15:35 | Outpatient (CLI) | payer BC, SELFPAY ==
[2023-12-11 16:33] LABS: Chloride 101 mmol/L (98-107); Potassium 4.2 mmoL/L (3.5-5.1); Sodium 140 mmol/L (136-145)
[2023-12-11 16:36] LABS: Blood Urea Nitrogen 46 mg/dl (7-17); Estimated Glomerular Filt Rate 45 ml/min (>60); GFR (African American) 55 ML/MIN (>60)
[2023-12-11 16:37] LABS: Anion Gap 12.2 mEq/L (5-15); Calcium 9.4 mg/dl (8.4-10.2); Carbon Dioxide 31 mmol/L (22.0-30.0); Glucose 95 mg/dl (74-100)
== END 2023-12-11 23:59 ==
LOC: LAB 15:36
PROVIDERS: PCP Family Medicine; Visit Provider Nurse Practitioner
DX: N17.9 Acute kidney failure, unspecified (principal)
CPT/HCPCS: 36415; 80048

== ENCOUNTER → 2023-12-12 16:03 | Outpatient (CLI) | payer BC, SELFPAY | LOC: SL 16:03 | PROVIDERS: PCP Family Medicine; Visit Provider Nurse Practitioner | DX: R40.0 Somnolence (principal); I50.30 Unspecified diastolic (congestive) heart failure | CPT/HCPCS: G0399 ==

== ENCOUNTER 2024-03-17 15:11 | Outpatient (CLI) | payer BC, SELFPAY ==
[2024-03-17 16:20] LABS: Chloride 102 mmol/L (98-107); Potassium 4.9 mmoL/L (3.5-5.1); Sodium 136 mmol/L (136-145)
[2024-03-17 16:23] LABS: Anion Gap 13.9 mEq/L (5-15); Blood Urea Nitrogen 44 mg/dl (7-17); Carbon Dioxide 25 mmol/L (22.0-30.0); Estimated Glomerular Filt Rate 35 ml/min (>60); GFR (African American) 42 ML/MIN (>60); Glucose 82 mg/dl (74-100)
== END 2024-03-17 23:59 | disposition home or self-care (01) ==
LOC: LAB 15:13
PROVIDERS: PCP Family Medicine; Visit Provider Nurse Practitioner
DX: I50.30 Unspecified diastolic (congestive) heart failure (principal); Z79.899 Other long term (current) drug therapy
CPT/HCPCS: 36415; 80048

== ENCOUNTER 2024-04-13 15:12 | Outpatient (CLI) | payer BC, SELFPAY ==
[2024-04-13 16:42] LABS: Anion Gap 11.6 mEq/L (5-15); Blood Urea Nitrogen 31 mg/dl (7-17); Calcium 9.2 mg/dl (8.4-10.2); Carbon Dioxide 28 mmol/L (22.0-30.0); Chloride 103 mmol/L (98-107); Estimated Glomerular Filt Rate 56 ml/min (>60); GFR (African American) 67 ML/MIN (>60); Glucose 82 mg/dl (74-100); Potassium 4.6 mmoL/L (3.5-5.1); Sodium 138 mmol/L (136-145)
== END 2024-04-13 23:59 | disposition home or self-care (01) ==
LOC: LAB 15:12
PROVIDERS: PCP Family Medicine; Visit Provider Nurse Practitioner
DX: I50.32 Chronic diastolic (congestive) heart failure (principal); Z87.891 Personal history of nicotine dependence; I10 Essential (primary) hypertension; E11.9 Type 2 diabetes mellitus without complications; E78.2 Mixed hyperlipidemia; Z79.85 Long-term (current) use of injectable non-insulin antidiabetic drugs
CPT/HCPCS: 36415; 80048

== ENCOUNTER 2024-06-02 09:14 | Outpatient (CLI) | payer MEDICARE, SELFPAY ==
--- NOTE | 2024-06-02 09:17 | XR_ITS ---
FINAL REPORT TECHNIQUE: Bone mineral density was calculated of the lumbar spine and hip. CLINICAL HISTORY: SCREENING COMPARISON: 01/12/2021 FINDINGS: Using L1-4, the bone mineral density of the spine is 1.364 g/cm2, corresponding to T-score of 2.9. Using the left hip, the bone mineral density of the femoral neck is 0.657 g/cm2, corresponding to a T-score of -1.7. NOTE: T-score: Standard deviation compared with peak bone mass of young adult mean. *Following the recommendations of the International Society of Bone densitometry, classification of hip BMD is based on the lower of two T-scores; total hip or femoral neck. IMPRESSION: Diminished bone mineral density of the left hip consistent with low bone density. Normal bone mineral density of the lumbar spine. Reviewed, Interpreted and Dictated by Werner Howard III, MD Transcribed by Alice Domingo Authenticated and [facility]
== END 2024-06-02 23:59 | disposition home or self-care (01) ==
LOC: RAD 09:14
PROVIDERS: PCP Family Medicine; Visit Provider Family Medicine
DX: M81.0 Age-related osteoporosis without current pathological fracture (principal)
CPT/HCPCS: 77080

== ENCOUNTER 2024-06-03 10:00 | Emergency (ER) | payer MEDICARE, SELFPAY ==
[2024-06-03 10:47] VITALS: BP 142/73; PULSE 82; RESP 18; TEMP 36.8; O2SAT 97; BMI 41.0
--- NOTE | 2024-06-03 10:48 | EXP.UTC ---
Discharge Plan Disposition Patient Disposition: Home, Self-Care Condition: Good Prescriptions Prescriptions: New clindamycin HCl 300 mg capsule 300 mg PO Q8H Qty: 30 0RF mupirocin 2 % ointment 1 applic topical TID 7 Days Qty: 15 0RF No Action metoprolol succinate 100 mg tablet extended release 24 hr 150 mg PO DAILY Patient Comments: Patient sts taking 1 1/2 tabs a day tizanidine 4 mg tablet 4 mg PO ONCE multivitamin [Daily Multi-Vitamin] Tablet 1 tab PO DAILY aspirin 81 mg tablet 81 mg PO DAILY coenzyme Q10 [Co Q-10] 30 mg capsule 30 mg PO DAILY spironolactone 25 mg tablet 25 mg PO DAILY Patient Comments: TAKE 1 TABLET BY MOUTH ONCE DAILY alprazolam 0.25 mg tablet 0.25 mg PO BID levothyroxine 137 mcg tablet 137 mcg PO DAILY Patient Comments: TAKE 2 TABLETS BY MOUTH ONCE DAILY omega 7-jka-vjl-fish oil [Fish Oil] 1,000 mg (120 mg-180 mg) capsule 1 cap PO DAILY lisinopril 20 mg tablet 20 mg PO DAILY Qty: 30 5RF rosuvastatin 5 mg tablet See Rx Instructions .ROUTE .COMPLEX Qty: 30 0RF Dose Instruction: Take 1 tablet by mouth once daily Rx Instructions: Take 1 tablet by mouth once daily furosemide [Lasix] 40 mg tablet 40 mg PO DAILY Qty: 90 1RF estradiol 1 mg tablet 1 mg PO DAILY 30 Days Qty: 30 0RF Ozempic 0.25 mg or 0.5 mg (2 mg/3 mL) pen injector 0.25 mg SQ WEEKLY Qty: 3 0RF Rx Instructions: for 4 weeks; then increase to 0.5 mg every week Referrals Follow up/Referrals: Coleman Flaherty MD [Primary Care Provider] - See instructions Activity Restrictions/Add. Instructions Additional Instructions/Restrictions: Take tylenol for pain or fever. Rest the extremity and elevate the extremity as much as tolerated for the next few days. Take the medications as directed. Apply the topical antibiotic ointment (mupirocin) as directed. Follow up with your regular doctor. Follow up with podiatry as you already have planned to do. GO TO THE ER FOR ANY WORSENING SYMPTOMS Clinical Impressions Clinical Impression: Superficial laceration of left foot, Diabetes, Need for Tdap vaccination Instructions Patient Instructions: Clindamycin, Mupirocin, Tetanus, Diphtheria, Pertussis (Tdap) Vaccine Print Language Print Language: Hungarian Discharge ED Provider: Daquan Ponce [facility] General Stated complaint: L foot big toe cut while cutting nails ao Time Seen by Provider: 06/03/24 10:48 History of Present Illness Provider Complaint: She states that she was clipping her nails on her feet last night when she accidentally cut the tip of her left great toe. She is a diabetic and she states that she has had trouble getting wounds on her feet to heal well before. Related Data Home Medications ?Medication ?Instructions ?Recorded ?Confirmed alprazolam 0.25 mg tablet 0.25 mg PO BID 09/03/18 04/13/24 aspirin 81 mg tablet 81 mg PO DAILY 10/16/23 04/13/24 coenzyme Q10 30 mg capsule (Co 30 mg PO DAILY 10/16/23 04/13/24 Q-10) multivitamin (Daily Multi-Vitamin 1 tab PO DAILY 10/16/23 04/13/24 tablet) tizanidine 4 mg tablet 4 mg PO ONCE 10/24/23 04/13/24 metoprolol succinate 100 mg 150 mg PO DAILY BLOOD PRESSURE 11/13/23 04/13/24 tablet,extended release 24 hr spironolactone 25 mg tablet 25 mg PO DAILY 03/17/24 04/13/24 levothyroxine 137 mcg tablet 137 mcg PO DAILY 04/13/24 04/13/24 omega 6-anf-lkz-fish oil 1,000 mg 1 cap PO DAILY 04/13/24 04/13/24 (120 mg-180 mg) capsule (Fish Oil) Previous Rx's ?Medication ?Instructions ?Recorded rosuvastatin 5 mg tablet See Rx Instructions .Route 06/30/23 .COMPLEX #30 tabs furosemide 40 mg tablet (Lasix) 40 mg PO DAILY #90 tabs 11/28/23 lisinopril 20 mg tablet 20 mg PO DAILY #30 tabs 04/13/24 estradiol 1 mg tablet 1 mg PO DAILY 30 days #30 tabs 05/28/24 semaglutide 0.25 mg or 0.5 mg (2 0.25 mg (0.368 mL) SQ WEEKLY #3 mL 06/02/24 mg/3 mL) subcutaneous pen injector ([employer]empic) clindamycin HCl 300 mg capsule 300 mg PO Q8H #30 caps 06/03/24 mupirocin 2 % topical ointment 1 applic topical TID 7 days #15 06/03/24 grams Allergies Allergy/AdvReac Type Severity Reaction Status Date / Time erythromycin base Allergy Unknown Verified 04/13/24 14:44 [From ERYTHROCIN] Penicillins [PENICILLINS] Allergy Unknown Verified 04/13/24 14:44 [facility] Disclaimer: The information contained in this section may have been updated after the patient was seen, as this information can be updated by other users. Medical History Daytime somnolence (HFpEF) heart failure with preserved ejection fraction SOB (shortness of breath) on exertion Abnormal cardiovascular stress test Atypical angina Shoulder pain, bilateral Hypertension Diabetes mellitus Spleen absent Hyperlipemia History of hypertension Surgical History H/O thyroidectomy History of total left knee replacement H/O total hysterectomy Family History Other Unknown family medical history Social History Smoking Status: Former smoker alcohol intake: never substance use type: denies use current occupational status: retired Travel in the last 8 weeks: None ROS Obtained: Yes All systems reviewed & no additional complaints except as documented Constitutional Constitutional: Denies chills and Denies fever(s) Eyes Eyes: Denies eye discharge ENT Ears, Nose, Mouth, and Throat: Denies dizziness, Denies otalgia and Denies sore throat Cardiovascular Cardiovascular: Denies chest pain Respiratory Respiratory: Denies shortness of breath, Denies chest congestion, Denies cough, Denies stridor and Denies wheezing Gastrointestinal Gastrointestingal: Denies nausea or vomiting Musculoskeletal Musculoskeletal: Reports system reviewed and no additional complaints, except as documented and Denies arthralgias Integumentary/Breasts Skin/Breast: Reports as per HPI Neurologic Neurologic: Denies dizziness and Denies paresthesias Allergic/Immunologic Allergic/Immunologic: Denies wheezing Physical Exam General General appearance: alert and in no apparent distress Head Head exam: atraumatic, normocephalic and normal inspection Eye Eye exam: Present normal appearance, PERRL and EOMI ENT ENT exam: Present normal exam, normal oropharynx, mucous membranes moist, TM's normal bilaterally and normal external ear exam Neck Neck exam: Present normal inspection, full ROM and trachea midline; Absent meningismus or lymphadenopathy Chest Chest inspection: Present normal inspection and symmetric chest wall rise; Absent tenderness Respiratory Respiratory exam: Present normal lung sounds bilaterally; Absent respiratory distress Cardiovascular Cardiovascular exam: Present regular rate and normal rhythm; Absent JVD Abdominal Exam Abdominal exam: Present soft and normal bowel sounds; Absent distention, tenderness or guarding Extremities Exam Extremities exam: Present normal inspection, full ROM and normal capillary refill; Absent calf tenderness Back Exam Back exam: Present normal inspection; Absent tenderness Neurological Exam Neurological exam: Present alert and oriented X3 Psychiatric Psychiatric exam: Present normal affect and normal mood Skin Skin exam: Present other (there is a small superficial laceration near the tip of her nail on her left great toe. ) Lymphatic Lymphatic Findings: no adenopathy Medical Decision Making Medical Records Medical records reviewed: No I reviewed the patient's medical records. Vahe Inquiry Pt receiving controlled substance: No
[2024-06-03] MEDS: TET/DIPHTH/PERT-ADULT 0.5ML SYRINGE 0.5 ML IM (11:38)
[2024-06-03 11:57] VITALS: BP 142/73; PULSE 82; RESP 18; TEMP 36.8; O2SAT 97
== END 2024-06-03 11:58 | disposition home or self-care (01) ==
PROVIDERS: Emergency Provider Nurse Practitioner Family; PCP Family Medicine
DX: S91.112A Laceration without foreign body of left great toe without damage to nail, initial encounter (principal); E11.9 Type 2 diabetes mellitus without complications; Z23 Encounter for immunization; W26.8XXA Contact with other sharp object(s), not elsewhere classified, initial encounter; Z79.84 Long term (current) use of oral hypoglycemic drugs
CPT/HCPCS: 90471; 90715; 99212; 99214; G0463

== ENCOUNTER 2024-07-08 11:43 | Outpatient (CLI) | payer MEDICARE, SELFPAY ==
--- NOTE | 2024-07-08 11:54 | XR_ITS ---
FINAL REPORT CLINICAL HISTORY: Foot Pain COMPARISON: None FINDINGS: RIGHT FOOT Three views demonstrate no acute fracture or dislocation. No acute soft tissue abnormality is seen. Moderate hypertrophic changes are noted at the first metatarsophalangeal joint. There is lateral subluxation of the second and third metatarsophalangeal joints. A large Tatyana deformity is identified. There is a prominent hallux valgus deformity. A moderate plantar spur is identified. There is hammertoe deformity of the 2nd through 5th digits. IMPRESSION: Large Tatyana deformity. Hallux valgus deformity. Hammertoe deformity 2nd through 5th digits. Reviewed, Interpreted and Dictated by Angel Mora MD Transcribed by Aimee Diaz Authenticated and [facility]
--- NOTE | 2024-07-08 11:54 | XR_ITS ---
FINAL REPORT CLINICAL HISTORY: Foot Pain COMPARISON: None FINDINGS: LEFT FOOT Three views demonstrate no acute fracture or dislocation. No acute soft tissue abnormality is seen. There is a marked hallux valgus deformity. Lateral subluxation is noted at the second and third metatarsophalangeal joints. There is a moderate plantar spur. There is hammertoe deformity of the 2nd through 5th digits. IMPRESSION: Hallux valgus deformity. Hammertoe deformity 2nd through 5th digits. Reviewed, Interpreted and Dictated by Angel Mora MD Transcribed by Aimee Diaz Authenticated and [facility]
[2024-07-08 12:12] LABS: Basophils # 0.1 K/mm3 (0-0.2); Eosinophils # 0.1 K/mm3 (0.0-0.4); Eosinophils % 1.1 % (0.1-12.0); Hematocrit 40.9 % (37.0-47.0); Hemoglobin 13.7 g/dL (12.2-16.2); Lymphocytes # 2.7 K/mm3 (0.7-4.5); Lymphocytes % 24.6 % (10-50); Mean Corpuscular HGB Conc 33.5 g/dL (31.8-35.4); Mean Corpuscular Hemoglobin 30.4 pg (27.0-31.2); Mean Corpuscular Volume 90.8 fl (81-99); Monocytes # 0.6 K/mm3 (0.1-1.0); Monocytes % 5.3 % (1.7-9.3); Neutrophils # 7.5 K/mm3 (1.8-7.8); Neutrophils % 67.9 % (37.0-80.0); Platelet Count 433 K/mm3 (142-424); Red Cell Distribution Width 13.9 % (11.5-17.5); White Blood Count 11.1 K/mm3 (4.8-10.8)
[2024-07-08 12:34] LABS: Albumin Level 4.1 g/dl (3.5-5.0); Chloride 106 mmol/L (98-107); Potassium 4.3 mmoL/L (3.5-5.1); Sodium 140 mmol/L (136-145)
[2024-07-08 12:36] LABS: Blood Urea Nitrogen 28 mg/dl (7-17); Estimated Glomerular Filt Rate 56 ml/min (>60); GFR (African American) 67 ML/MIN (>60)
[2024-07-08 12:37] LABS: Alanine Aminotransferase 21 U/L (12-78); Alkaline Phosphatase 86 U/L (38-126); Anion Gap 11.3 mEq/L (5-15); Aspartate Amino Transferase 19 U/L (14-36); Bilirubin,Direct 0.2 mg/dl (0.0-0.4); Bilirubin,Indirect 0.3 mg/dL (0.0-0.9); Bilirubin,Total 0.5 mg/dl (0.2-1.3); Bilirubin,Unconjugated 0.3 mg/dL (0.0-1.1); Calcium 9.2 mg/dl (8.4-10.2); Carbon Dioxide 27 mmol/L (22.0-30.0); Chol/HDL Ratio 3.8 (1-3.5); Cholesterol 185 mg/dl (140-200); Glucose 91 mg/dl (74-100); HDL Cholesterol 49 mg/dl (40-60); Magnesium 1.5 mg/dl (1.6-2.3); Total Protein,Serum 7.1 g/dl (6.3-8.2); Triglycerides 301 mg/dl (30-150); VLDL Cholesterol 60 mg/dL (0-40)
[2024-07-08 12:48] LABS: Direct LDL Cholesterol 86.24 mg/dL (100-129)
[2024-07-08 12:54] LABS: Free T4 (Free Thyroxine) 1.68 ng/dl (0.78-2.19)
[2024-07-08 13:08] LABS: Thyroid Stimulating Hormone 0.15 uIU/mL (0.465-4.68)
== END 2024-07-08 23:59 | disposition home or self-care (01) ==
LOC: LAB 11:45
PROVIDERS: PCP Family Medicine; Visit Provider Nurse Practitioner
DX: I50.32 Chronic diastolic (congestive) heart failure (principal); F41.9 Anxiety disorder, unspecified; I10 Essential (primary) hypertension; E11.9 Type 2 diabetes mellitus without complications; E78.2 Mixed hyperlipidemia; M79.671 Pain in right foot; M79.672 Pain in left foot
CPT/HCPCS: 36415; 73630; 80048; 80061; 80076; 83735; 84439; 84443; 85025

== ENCOUNTER 2024-10-18 11:07 | Outpatient (CLI) | payer MEDICARE, SELFPAY ==
--- NOTE | 2024-10-18 11:14 | US_ITS ---
FINAL REPORT CLINICAL HISTORY: Decreased Pedal Pulses COMPARISON: None FINDINGS: ANKLE-BRACHIAL PRESSURE INDICES Pressure indices are as follows: RIGHT LOWER EXTREMITY: Ankle-brachial pressure index: 0.96 Comments: Mildly depressed LEFT LOWER EXTREMITY: Ankle-brachial pressure index: 0.88 Comments: Mildly depressed CONCLUSION: Suggestive of mild obstructive pulmonary vascular disease. Reviewed, Interpreted and Dictated by Angel Mora MD Transcribed by Alice Domingo Authenticated and [facility]
[2024-10-18 12:10] LABS: Basophils # 0.1 K/mm3 (0-0.2); Eosinophils # 0.1 K/mm3 (0.0-0.4); Eosinophils % 0.7 % (0.1-12.0); Hematocrit 43.3 % (37.0-47.0); Hemoglobin 14.1 g/dL (12.2-16.2); Lymphocytes # 2.5 K/mm3 (0.7-4.5); Lymphocytes % 18.1 % (10-50); Mean Corpuscular HGB Conc 32.6 g/dL (31.8-35.4); Mean Corpuscular Hemoglobin 30.1 pg (27.0-31.2); Mean Corpuscular Volume 92.5 fl (81-99); Mean Platelet Volume 11.2 fl (7.4-10.4); Monocytes # 0.8 K/mm3 (0.1-1.0); Monocytes % 6.2 % (1.7-9.3); Neutrophils # 9.9 K/mm3 (1.8-7.8); Neutrophils % 73.5 % (37.0-80.0); Platelet Count 437 K/mm3 (142-424); Red Blood Count 4.68 M/mm3 (4.20-5.40); Red Cell Distribution Width 15.3 % (11.5-17.5); White Blood Count 13.5 K/mm3 (4.8-10.8)
[2024-10-18 13:02] LABS: Albumin Level 4.5 g/dl (3.5-5.0)
[2024-10-18 13:03] LABS: Chloride 102 mmol/L (98-107); Potassium 5.4 mmoL/L (3.5-5.1); Sodium 139 mmol/L (136-145)
[2024-10-18 13:05] LABS: Alanine Aminotransferase 30 U/L (12-78); Anion Gap 15.4 mEq/L (5-15); Aspartate Amino Transferase 37 U/L (14-36); Bilirubin,Unconjugated 0.2 mg/dL (0.0-1.1); Blood Urea Nitrogen 40 mg/dl (7-17); Carbon Dioxide 27 mmol/L (22.0-30.0); Estimated Glomerular Filt Rate 35 ml/min (>60); GFR (African American) 42 ML/MIN (>60); Total Protein,Serum 7.5 g/dl (6.3-8.2)
[2024-10-18 13:06] LABS: Alkaline Phosphatase 108 U/L (38-126); Bilirubin,Direct 0.2 mg/dl (0.0-0.4); Bilirubin,Indirect 0.2 mg/dL (0.0-0.9); Bilirubin,Total 0.4 mg/dl (0.2-1.3); Calcium 9.4 mg/dl (8.4-10.2); Chol/HDL Ratio 5.3 (1-3.5); Cholesterol 247 mg/dl (140-200); Glucose 86 mg/dl (74-100); HDL Cholesterol 47 mg/dl (40-60); Magnesium 1.8 mg/dl (1.6-2.3); Triglycerides 369 mg/dl (30-150); VLDL Cholesterol 74 mg/dL (0-40)
[2024-10-18 13:42] LABS: Free T4 (Free Thyroxine) 1.46 ng/dl (0.78-2.19)
[2024-10-18 13:54] LABS: Thyroid Stimulating Hormone 2.19 uIU/mL (0.465-4.68)
[2024-10-18 14:56] LABS: Hemoglobin A1C 6.1 % (4.0-6.0)
[2024-10-18 19:23] LABS: Direct LDL Cholesterol 142.43 mg/dL (100-129)
== END 2024-10-18 23:59 | disposition home or self-care (01) ==
PROVIDERS: Nurse Practitioner; PCP Family Medicine; Visit Provider Podiatrist
DX: R09.89 Other specified symptoms and signs involving the circulatory and respiratory systems (principal); E78.2 Mixed hyperlipidemia; I11.0 Hypertensive heart disease with heart failure; I50.32 Chronic diastolic (congestive) heart failure; F41.9 Anxiety disorder, unspecified; E11.9 Type 2 diabetes mellitus without complications; E66.01 Morbid (severe) obesity due to excess calories; Z68.41 Body mass index [BMI] 40.0-44.9, adult; Z87.891 Personal history of nicotine dependence
CPT/HCPCS: 36415; 80048; 80061; 80076; 83036; 83735; 84439; 84443; 85025; 93923

== ENCOUNTER 2024-10-25 08:56 | Outpatient (CLI) | payer MEDICARE, SELFPAY ==
[2024-10-25 09:46] LABS: Alanine Aminotransferase 21 U/L (12-78); Albumin Level 4.1 g/dl (3.5-5.0); Alkaline Phosphatase 84 U/L (38-126); Anion Gap 13.8 mEq/L (5-15); Aspartate Amino Transferase 23 U/L (14-36); Bilirubin,Direct 0.1 mg/dl (0.0-0.4); Bilirubin,Indirect 0.2 mg/dL (0.0-0.9); Bilirubin,Total 0.3 mg/dl (0.2-1.3); Bilirubin,Unconjugated 0.1 mg/dL (0.0-1.1); Blood Urea Nitrogen 45 mg/dl (7-17); Carbon Dioxide 24 mmol/L (22.0-30.0); Chloride 103 mmol/L (98-107); Chol/HDL Ratio 3.5 (1-3.5); Cholesterol 152 mg/dl (140-200); Estimated Glomerular Filt Rate 38 ml/min (>60); GFR (African American) 46 ML/MIN (>60); Glucose 116 mg/dl (74-100); HDL Cholesterol 44 mg/dl (40-60); Potassium 4.8 mmoL/L (3.5-5.1); Sodium 136 mmol/L (136-145); Total Protein,Serum 6.5 g/dl (6.3-8.2); Triglycerides 211 mg/dl (30-150); VLDL Cholesterol 42 mg/dL (0-40)
[2024-10-25 09:57] LABS: Direct LDL Cholesterol 64.06 mg/dL (100-129)
== END 2024-10-25 23:59 | disposition home or self-care (01) ==
PROVIDERS: Nurse Practitioner Family; PCP Family Medicine; Visit Provider Nurse Practitioner
DX: E11.9 Type 2 diabetes mellitus without complications (principal); E66.01 Morbid (severe) obesity due to excess calories; I50.32 Chronic diastolic (congestive) heart failure; R06.02 Shortness of breath; R94.39 Abnormal result of other cardiovascular function study; I20.89 Other forms of angina pectoris; E78.2 Mixed hyperlipidemia; Z86.79 Personal history of other diseases of the circulatory system; I11.9 Hypertensive heart disease without heart failure; Z68.41 Body mass index [BMI] 40.0-44.9, adult
CPT/HCPCS: 36415; 80048; 80061; 80076

== ENCOUNTER 2024-11-04 09:17 | Outpatient (CLI) | payer MEDICARE, SELFPAY ==
[2024-11-04 10:07] LABS: Chloride 106 mmol/L (98-107)
[2024-11-04 10:08] LABS: Potassium 4.8 mmoL/L (3.5-5.1); Sodium 138 mmol/L (136-145)
[2024-11-04 10:11] LABS: Anion Gap 11.8 mEq/L (5-15); Blood Urea Nitrogen 24 mg/dl (7-17); Calcium 8.9 mg/dl (8.4-10.2); Carbon Dioxide 25 mmol/L (22.0-30.0); Estimated Glomerular Filt Rate 72 ml/min (>60); GFR (African American) 87 ML/MIN (>60); Glucose 100 mg/dl (74-100)
== END 2024-11-04 23:59 | disposition home or self-care (01) ==
LOC: LAB 09:19
PROVIDERS: PCP Family Medicine; Visit Provider Physician Assistant
DX: I50.32 Chronic diastolic (congestive) heart failure (principal); E11.9 Type 2 diabetes mellitus without complications; E78.2 Mixed hyperlipidemia; E66.01 Morbid (severe) obesity due to excess calories; Z86.79 Personal history of other diseases of the circulatory system; Z87.891 Personal history of nicotine dependence
CPT/HCPCS: 36415; 80048

== ENCOUNTER 2025-02-15 11:30 | Emergency (ER) | payer MEDICARE, SELFPAY ==
--- NOTE | 2025-02-15 11:40 | XR_ITS ---
FINAL REPORT CLINICAL HISTORY: fall, COMPARISON: None FINDINGS: Two views of the right wrist were obtained. There is no acute fracture or dislocation. The joint spaces are well preserved. There is soft tissue edema over the dorsum of the wrist. IMPRESSION: Soft tissue edema without acute bony abnormality. Reviewed, Interpreted and Dictated by Angel Mora MD Transcribed by Franchesca Gilman Authenticated and . [facility]
--- NOTE | 2025-02-15 11:40 | XR_ITS ---
FINAL REPORT CLINICAL HISTORY: fall, trauma second finger COMPARISON: None FINDINGS: Two views of the right hand were obtained. There is no acute fracture or dislocation. There are moderate hypertrophic changes of osteoarthritis at the 3rd D IP and 3rd MCP joints. There is no acute soft tissue abnormality. IMPRESSION: No acute abnormality identified. Reviewed, Interpreted and Dictated by Angel Mora MD Transcribed by Franchesca Gilman Authenticated and . [facility]
[2025-02-15 11:41] VITALS: BP 131/83; PULSE 81; RESP 17; TEMP 36.7; O2SAT 100; BMI 40.7
--- NOTE | 2025-02-15 11:42 | ED_ITS ---
Discharge Plan Disposition Patient Disposition: Home, Self-Care Prescriptions Prescriptions: No Action metoprolol succinate 100 mg tablet extended release 24 hr 150 mg PO DAILY Patient Comments: Patient sts taking 1 1/2 tabs a day aspirin 81 mg tablet 81 mg PO DAILY coenzyme Q10 [Co Q-10] 30 mg capsule 30 mg PO DAILY allopurinol 300 mg tablet PO DAILY Patient Comments: TAKE 1 TABLET BY MOUTH DAILY Ozempic 1 mg/dose (4 mg/3 mL) pen injector 1 mg SQ WEEKLY Qty: 3 3RF alprazolam 0.25 mg tablet 0.25 mg PO BID omega 7-pag-ter-fish oil [Fish Oil] 1,000 mg (120 mg-180 mg) capsule 1 cap PO DAILY levothyroxine 137 mcg tablet 137 mcg PO BID Patient Comments: TAKE 2 TABLETS BY MOUTH ONCE DAILY diclofenac sodium 75 mg tablet,delayed release (DR/EC) 75 mg PO ONCE Patient Comments: TAKE 1 TABLET BY MOUTH TWICE DAILY hydroxyzine HCl 25 mg tablet 25 mg PO HS Qty: 30 3RF furosemide [Lasix] 40 mg tablet 40 mg PO DAILY Qty: 90 1RF lisinopril 20 mg tablet See Rx Instructions .ROUTE .COMPLEX Qty: 90 3RF Dose Instruction: TAKE 1 TABLET BY MOUTH ONCE DAILY Rx Instructions: TAKE 1 TABLET BY MOUTH ONCE DAILY rosuvastatin [Crestor] 10 mg tablet 10 mg PO DAILY Qty: 90 1RF Referrals Follow up/Referrals: Coleman Flaherty MD [Primary Care Provider] - See instructions Activity Restrictions/Add. Instructions Additional Instructions/Restrictions: Okay to shower tomorrow. Do not soak hand underwater, go swimming, get in a hot tub, ETEC for the next 2 weeks. Do not lift anything over 5 pounds with your right hand for the next 2 weeks while sutures are intact. Please return in 7 to 10 days to have the sutures removed. Strict return precautions to the ER include but are not limited to severe erythema, purulent drainage from the wound, fever, inability to move finger. Clinical Impressions Clinical Impression: Laceration of finger, Right wrist sprain Instructions Patient Instructions: DI for Wrist Sprain, DI for Laceration Repair -- Finger Print Language Print Language: Hebrew Discharge ED Provider: Farshad Bowman General Adult HPI <Elizabeth Juares APRN - Last Filed: 02/15/25 14:02> General Chief complaint: Extremity Injury, Upper Stated complaint: AO fall 829 right hand pain/cut on R. middle fing Time Seen by Provider: 02/15/25 11:37 History of Present Illness HPI narrative: Mimi Causey is a 64-year-old female who presents emergency room today with complaints of a mechanical fall. Ms. Causey states that she was going to check on her dogs who were fighting and tripped and fell. Fell forward, on both of her hands outstretched. Reports immediate pain to her right wrist and right second finger. Open laceration noted to the proximal palmar side of her second finger. Last tetanus shot was approximately 1 year ago. Pain is rated as a /10 currently. Did not hit her head, no neck or back pain reported. No other complaints at this time. Please note that the above description of symptoms, and this electronic medical record under categorization of recalled from ER triage doctor by RN are reflective of an initial nursing assessment, however, is not reflective of my full history and physical exam that was personally taken and clarified. Consequentially, this proceeding description of symptoms, which may include the patient's cauterized chief complaint in the EMR, do not reflect my personal clinical impression, and the ultimate description of the history of present illness stated complaints should be deferred to this section of this note. Unless stated otherwise were congruent with the section of the note, additional signs, symptoms, or incongruence can be interpreted as in or accurate with my clinical impression. Related Data Home Medications ?Medication ?Instructions ?Recorded ?Confirmed alprazolam 0.25 mg tablet 0.25 mg PO BID 09/03/18 01/25/25 aspirin 81 mg tablet 81 mg PO DAILY 10/16/23 01/25/25 coenzyme Q10 30 mg capsule (Co 30 mg PO DAILY 10/16/23 01/25/25 Q-10) metoprolol succinate 100 mg 150 mg PO DAILY BLOOD PRESSURE 11/13/23 01/25/25 tablet,extended release 24 hr omega 3-mip-kbq-fish oil 1,000 mg 1 cap PO DAILY 04/13/24 01/25/25 (120 mg-180 mg) capsule (Fish Oil) diclofenac sodium 75 mg 75 mg PO ONCE 07/06/24 01/25/25 tablet,delayed release allopurinol 300 mg tablet mg PO DAILY 10/14/24 01/25/25 levothyroxine 137 mcg tablet 137 mcg PO BID 01/25/25 01/25/25 Previous Rx's ?Medication ?Instructions ?Recorded furosemide 40 mg tablet (Lasix) 40 mg PO DAILY #90 tabs 11/28/23 hydroxyzine HCl 25 mg tablet 25 mg PO HS #30 tabs 08/16/24 lisinopril 20 mg tablet See Rx Instructions .Route 11/10/24 .COMPLEX #90 tabs rosuvastatin 10 mg tablet (Crestor) 10 mg PO DAILY #90 tabs 01/19/25 semaglutide 1 mg/dose (4 mg/3 mL) 1 mg (0.75 mL) SQ WEEKLY #3 mL 01/25/25 subcutaneous pen injector (Ozempic) Allergies Allergy/AdvReac Type Severity Reaction Status Date / Time erythromycin base (From Allergy Unknown Verified 01/25/25 10:51 ERYTHROCIN) Penicillins (PENICILLINS) Allergy Unknown Verified 01/25/25 10:51 [facility] <Elizabeth Juares, 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 Medical History Anxiety Daytime somnolence (HFpEF) heart failure with preserved ejection fraction SOB (shortness of breath) on exertion Abnormal cardiovascular stress test Atypical angina Shoulder pain, bilateral Hypertension Diabetes mellitus Spleen absent Hyperlipemia History of hypertension Surgical History H/O thyroidectomy History of total left knee replacement H/O total hysterectomy Family History Other Unknown family medical history Social History Smoking Status: Never smoker alcohol intake: never substance use type: denies use current occupational status: retired Travel in the last 8 weeks?: None Have you lived/traveled outside [place] in past 30 days?: No Contact w/someone who lives/traveled outside [place] past 30 days?: No Exposure to someone with infectious disease in past 14 days?: No Do you have a fever (greater than 100.4 F or 38 C)?: No Have you tested positive for COVID-19?: No Exposed to someone with COVID-19 in past 14 days?: No Do you have a sore throat?: No Do you have a cough?: No Do you have any weakness?: No Do you have any diarrhea?: No Are you experiencing any unusual bleeding?: No Do you have any muscle aches/pain?: No Do you have any abdominal pain?: No Are you experiencing loss of taste or smell?: No Other Medical History Have you received the Flu Vaccine for this season: Yes Have you received the Pneumonia Vaccine: Yes <Elizabeth Juares H[employer]ICULTURE WORKER - Last Filed: 02/15/25 14:02> ROS Obtained: Yes Systems reviewed as appropriate & no additional complaints except as documented Physical Exam <Elizabeth Juares APRN - Last Filed: 02/15/25 14:02> General General appearance: alert and in no apparent distress Head Head exam: atraumatic and normocephalic Eye Eye exam: Present PERRL and EOMI Chest Chest inspection: Present symmetric chest wall rise Respiratory Respiratory exam: Present normal lung sounds bilaterally Cardiovascular Cardiovascular exam: Present regular rate and normal rhythm Abdominal Exam Abdominal exam: Present soft and normal bowel sounds; Absent tenderness Extremities Exam Extremities exam: Present full ROM, tenderness and other (1 cm laceration over the volar aspect of the second metacarpal, tenderness to the right wrist) Neurological Exam Neurological exam: Present alert and oriented X3 Skin Skin exam: Present warm, dry and intact Medical Decision Making <Elizabeth Juares APRN - Last Filed: 02/15/25 14:02> Medical Records Screening: Per USPSTF and CDC recommendations, given the prevalence of disease in our region, it is our hospital?s policy to screen for HIV and viral Hepatitis for all patients aged 18 and over and those with ongoing risk factors. Vahe Inquiry Pt receiving controlled substance: No Vital Signs: 02/15/25 11:41 02/15/25 14:16 Temperature 98.0 F 98.2 F Temperature Source Oral Pulse Rate 80 Pulse Rate [Left Radial] 81 Respiratory Rate 17 20 Blood Pressure 140/79 Blood Pressure [Right Arm] 131/83 Blood Pressure Mean [Right Arm] 99 Blood Pressure Source [Right Arm] Automatic Cuff Blood Pressure Position [Right Arm] Sitting 02 Sat by Pulse Oximetry 100 Oxygen Delivery Method Room Air Room Air Orders (Tests/Meds): ED MEDICATIONS Discontinued Medications Generic Name Dose Route Start Last Admin Trade Name Freq PRN Reason Stop Dose Admin Lidocaine HCl 10 ml 02/15/25 13:23 02/15/25 13:46 Lidocaine 1% 10ml Mdv IJ 02/15/25 13:24 10 ml ONCE ONE Administration ORDERS Category Date Time Status Hand XR right 2 views [XR hand RT 2V] Stat Exams 02/15/25 11:40 Completed Wrist XR right 2 views [XR wrist RT 2V] Stat Exams 02/15/25 11:40 Completed Medical Decision Narrative: In summary patient is an 64-year-old female who presents emergency department for evaluation of mechanical fall with immediate right wrist pain, laceration noted to the volar aspect of the second metacarpal. Patient is hemodynamically stable upon arrival, afebrile. Nonfocal exam except for right wrist pain, 1 cm laceration of the second metacarpal on the volar aspect. Differential diagnosis includes right wrist fracture, right second finger fracture, versus simple laceration and wrist sprain. Initial workup will be conducted with plain films of the right hand and right wrist. Initial interventions include multimodal pain control. Initial workup reviewed by me plain films informally reviewed by me, no fracture noted of the second finger, no fracture seen of the wrist. Upon repeat evaluation patient states her pain is well-controlled at this time. Finger was soaked in chlorhexidine. Digital block performed on second finger. 5 sutures were placed with 5-0 nylon suture. Patient was educated on strict return precautions. Given this patient is appropriate for discharge at this time. <Farshad Bowman MD - Last Filed: 02/16/25 07:33> Vital Signs: 02/15/25 11:41 02/15/25 14:16 Temperature 98.0 F 98.2 F Temperature Source Oral Pulse Rate 80 Pulse Rate [Left Radial] 81 Respiratory Rate 17 20 Blood Pressure 140/79 Blood Pressure [Right Arm] 131/83 Blood Pressure Mean [Right Arm] 99 Blood Pressure Source [Right Arm] Automatic Cuff Blood Pressure Position [Right Arm] Sitting 02 Sat by Pulse Oximetry 100 Oxygen Delivery Method Room Air Room Air Orders (Tests/Meds): ED MEDICATIONS Discontinued Medications Generic Name Dose Route Start Last Admin Trade Name Freq PRN Reason Stop Dose Admin Lidocaine HCl 10 ml 02/15/25 13:23 02/15/25 13:46 Lidocaine 1% 10ml Mdv IJ 02/15/25 13:24 10 ml ONCE ONE Administration ORDERS Category Date Time Status Hand XR right 2 views [XR hand RT 2V] Stat Exams 02/15/25 11:40 Completed Wrist XR right 2 views [XR wrist RT 2V] Stat Exams 02/15/25 11:40 Completed Medical Decision Narrative: In summary patient is an 64-year-old female who presents emergency department for evaluation of mechanical fall with immediate right wrist pain, laceration noted to the volar aspect of the second metacarpal. Patient is hemodynamically stable upon arrival, afebrile. Nonfocal exam except for right wrist pain, 1 cm laceration of the second metacarpal on the volar aspect. Differential diagnosis includes right wrist fracture, right second finger fracture, versus simple laceration and wrist sprain. Initial workup will be conducted with plain films of the right hand and right wrist. Initial interventions include multimodal pain control. Initial workup reviewed by me plain films informally reviewed by me, no fracture noted of the second finger, no fracture seen of the wrist. Upon repeat evaluation patient states her pain is well-controlled at this time. Finger was soaked in chlorhexidine. Digital block performed on second finger. 5 sutures were placed with 5-0 nylon suture. Patient was educated on strict return precautions. Given this patient is appropriate for discharge at this time. I was consulted by the KENA, and we discussed the complexity of the problems being addressed. I approved the treatment and management plan for this patient's care in the Emergency Department, thus performing a substantive portion of the medical decision making. Farshad Bowman MD Procedures <Elizabeth Juares APRN - Last Filed: 02/15/25 14:02> Laceration Laceration 1: Site: finger Side (If applicable): right Size (cm): 2 Depth: involves subcutaneous layer Local Anesthetic: lidocaine 1% (digital block of second finger) Amount of anesthesia used (mL): 2 Pre-repair: irrigated extensively Size (cm): 5-0 Number of sutures: 5 Technique: simple, interrupted Critical Care <Elizabeth Juares APRN - Last Filed: 02/15/25 14:02> Critical Care Time Critical Care Time: No
[2025-02-15] MEDS: LIDOCAINE 1% 10ML MDV 10 ML IJ (13:46)
[2025-02-15 14:16] VITALS: BP 140/79; PULSE 80; RESP 20; TEMP 36.8; O2SAT 98
== END 2025-02-15 14:17 | disposition home or self-care (01) ==
PROVIDERS: Emergency Provider Emergency Medicine; PCP Family Medicine
DX: S63.501A Unspecified sprain of right wrist, initial encounter (principal); S61.210A Laceration without foreign body of right index finger without damage to nail, initial encounter; W01.10XA Fall on same level from slipping, tripping and stumbling with subsequent striking against unspecified object, initial encounter
CPT/HCPCS: 12001; 73100; 73120; 99283; J2003

== ENCOUNTER 2025-02-20 09:31 | Emergency (ER) | payer MEDICARE, SELFPAY ==
[2025-02-20] VITALS (9 sets, daily range): BP systolic 134–148; BP diastolic 74–84; PULSE 71–78; RESP 16; TEMP 36.6; O2SAT 92–98; BMI 27.3
--- NOTE | 2025-02-20 09:42 | ED_ITS ---
Discharge Plan Disposition Patient Disposition: Xfer Other Condition: Fair Prescriptions Prescriptions: No Action metoprolol succinate 100 mg tablet extended release 24 hr 150 mg PO DAILY Patient Comments: Patient sts taking 1 1/2 tabs a day aspirin 81 mg tablet 81 mg PO DAILY coenzyme Q10 [Co Q-10] 30 mg capsule 30 mg PO DAILY allopurinol 300 mg tablet 300 mg PO DAILY Patient Comments: TAKE 1 TABLET BY MOUTH DAILY Ozempic 1 mg/dose (4 mg/3 mL) pen injector 1 mg SQ WEEKLY Qty: 3 3RF alprazolam 0.25 mg tablet 0.25 mg PO BID omega 4-ebg-kgm-fish oil [Fish Oil] 1,000 mg (120 mg-180 mg) capsule 1 cap PO DAILY levothyroxine 137 mcg tablet 137 mcg PO BID Patient Comments: TAKE 2 TABLETS BY MOUTH ONCE DAILY diclofenac sodium 75 mg tablet,delayed release (DR/EC) 75 mg PO ONCE Patient Comments: TAKE 1 TABLET BY MOUTH TWICE DAILY hydroxyzine HCl 25 mg tablet 25 mg PO HS Qty: 30 3RF furosemide [Lasix] 40 mg tablet 40 mg PO DAILY Qty: 90 1RF lisinopril 20 mg tablet See Rx Instructions .ROUTE .COMPLEX Qty: 90 3RF Dose Instruction: TAKE 1 TABLET BY MOUTH ONCE DAILY Rx Instructions: TAKE 1 TABLET BY MOUTH ONCE DAILY rosuvastatin [Crestor] 10 mg tablet 10 mg PO DAILY Qty: 90 1RF clindamycin HCl 300 mg capsule 300 mg PO BID Patient Comments: TAKE 1 CAPSULE BY MOUTH EVERY 12 HOURS FOR 7 DAYS sulfamethoxazole-trimethoprim 800-160 mg tablet 1 tab PO BID Patient Comments: TAKE 1 TABLET BY MOUTH TWICE DAILY FOR 7 DAYS Referrals Follow up/Referrals: Coleman Flaherty MD [Primary Care Provider, Medical] - See instructions Activity Restrictions/Add. Instructions Additional Instructions/Restrictions: Go directly to the [facility] emergency department for evaluation by orthopedic surgery for flexor tenosynovitis. Address [address] [place], [place]. 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 On February 15 the patient fell backwards and developed a laceration over the right third palmar aspect that was sutured after negative x-rays at [facility] with nylon sutures. Patient developed redness and pain worse with movement so went to the PCP who prescribed Bactrim and clindamycin without improvement of symptoms. Patient has been taking oral antibiotics for 2 days with development of worsening pain now extending throughout the entire hand redness and swelling with purulent drainage. Of note patient has been petting her dogs which may have introduce more bacteria. Related Data Home Medications ?Medication ?Instructions ?Recorded ?Confirmed alprazolam 0.25 mg tablet 0.25 mg PO BID 09/03/1810/16 aspirin 81 mg tablet 81 mg PO DAILY 10/16/2310/16 coenzyme Q10 30 mg capsule (Co 30 mg PO DAILY 10/16/23 02/20/25 Q-10) metoprolol succinate 100 mg 150 mg PO DAILY BLOOD PRES SURE 11/13/23 02/20/25 tablet,extended release 24 hr omega 7-naq-ixv-fish oil 1,000 mg 1 cap PO DAILY 04/1302/20/25 (120 mg-180 mg) capsule (Fish Oil) diclofenac sodium 75 mg 75 mg PO ONCE 07/06/2402/20 tablet,delayed release allopurinol 300 mg tablet 300 mg PO DAILY 10/14/2410/16 levothyroxine 137 mcg tablet 137 mcg PO BID 01/25/25 0 02/20/25 clindamycin HCl 300 mg capsule 300 mg PO BID 02/20/25 02/20/25 sulfamethoxazole 800 1 tab PO BID 02/20/25 mg-trimethoprim 160 mg tablet Previous Rx's ?Medication ?Instructions ?Recorded furosemide 40 mg tablet (Lasix) 40 mg PO DAILY #90 tab s 11/28/23 hydroxyzine HCl 25 mg tablet 25 mg PO HS #30 tabs 07/24 02/12 lisinopril 20 mg tablet See Rx Instructions .Route 0 11/10/24 .COMPLEX #90 tabs rosuvastatin 10 mg tablet (Crestor) 10 mg PO DAILY #90 tabs 04/30/25 semaglutide 1 mg/dose (4 mg/3 mL) 1 mg (0.75 mL) SQ WE EKLY #3 mL 01/25/25 subcutaneous pen injector (Ozempic) Allergies Allergy/AdvReac Type Severity Reaction Status Date / Time Penicillins (PENICILLINS) Allergy Unknown Unknown Verified 02/20/25 10:07 allergy reaction [facility] Disclaimer: The information contained in this section may have been updated after the patient was seen, as this information can be updated by other users. Medical History (Updated 02/20/25 @ 13:22 by Umu Mejia MD) Anxiety Daytime somnolence (HFpEF) heart failure with preserved ejection fraction SOB (shortness of breath) on exertion Abnormal cardiovascular stress test Atypical angina Shoulder pain, bilateral Hypertension Diabetes mellitus Spleen absent Hyperlipemia History of hypertension Surgical History (Updated 02/20/25 @ 10:10 by Maria Luisa Orr RN) Hx of splenectomy H/O thyroidectomy History of total left knee replacement H/O total hysterectomy Family History Other Unknown family medical history Social History Smoking Status: Former smoker alcohol intake: never substance use type: denies use current occupational status: retired Travel in the last 8 weeks?: None Have you lived/traveled outside [place] in past 30 days?: No Contact w/someone who lives/traveled outside US past 30 days?: No Exposure to someone with infectious disease in past 14 days?: No Do you have a fever (greater than 100.4 F or 38 C)?: No Have you tested positive for COVID-19?: No Exposed to someone with COVID-19 in past 14 days?: No Do you have a sore throat?: No Do you have a cough?: No Do you have any weakness?: No Do you have any diarrhea?: No Are you experiencing any unusual bleeding?: No Do you have any muscle aches/pain?: No Do you have any abdominal pain?: No Are you experiencing loss of taste or smell?: No Other Medical History Have you received the Flu Vaccine for this season: Yes Have you received the Pneumonia Vaccine: Yes ROS Obtained: Yes All systems reviewed & no additional complaints except as documented Physical Exam General General appearance: alert and in no apparent distress Head Head exam: normocephalic Eye Eye exam: Present normal appearance and PERRL ENT ENT exam: Present normal exam Neck Neck exam: Present normal inspection Chest Chest inspection: Present normal inspection Respiratory Respiratory exam: Absent respiratory distress Cardiovascular Cardiovascular exam: Present regular rate and normal rhythm Abdominal Exam Abdominal exam: Present soft; Absent distention or tenderness Extremities Exam Extremities exam: Present other (Erythema swelling on the palmar and dorsal aspect of the right middle digit held in passive flexion, pain with extension purulent drainage along nylon sutures) Neurological Exam Neurological exam: Present alert and oriented X3 Medical Decision Making Medical Records Screening: Per USPSTF and CDC recommendations, given the prevalence of disease in our region, it is our hospital?s policy to screen for HIV and viral Hepatitis for all patients aged 18 and over and those with ongoing risk factors. Vahe Inquiry Pt receiving controlled substance: No Vital Signs: 02/20/25 09:40 02/20/25 09:42 02/20/25 10:00 Temperature 97.9 F Temperature Source Oral Pulse Rate 78 74 Pulse Rate [Right] 76 Respiratory Rate 16 Blood Pressure 148/84 H Blood Pressure [Left Arm] 148/84 H Blood Pressure Mean [Left Arm] 105 Blood Pressure Source [Left Arm] Automatic Cuff 02 Sat by Pulse Oximetry 98 96 92 L Oxygen Delivery Method Room Air 02/20/25 10:30 02/20/25 11:58 02/20/25 12:00 Temperature Temperature Source Pulse Rate 75 74 73 Pulse Rate [Right] Respiratory Rate Blood Pressure 144/78 H 137/74 134/74 Blood Pressure [Left Arm] Blood Pressure Mean [Left Arm] Blood Pressure Source [Left Arm] 02 Sat by Pulse Oximetry 94 L 97 98 Oxygen Delivery Method Room Air Room Air 02/20/25 12:30 02/20/25 13:00 Temperature Temperature Source Pulse Rate 72 71 Pulse Rate [Right] Respiratory Rate Blood Pressure 135/80 144/82 H Blood Pressure [Left Arm] Blood Pressure Mean [Left Arm] Blood Pressure Source [Left Arm] 02 Sat by Pulse Oximetry 96 96 Oxygen Delivery Method Lab Data Lab Results 02/20/25 10:34: WBC 12.7 H, RBC 4.10 L, Hgb 12.4, Hct 36.9 L, MCV 90.0, MCH 30.2, MCHC 33.6, RDW 14.6, Plt Count 421, MPV 10.7 H, Neut % (Auto) 71.7, Lymph % (Auto) 18.8, [place] % (Auto) 6.7, Eos % (Auto) 2.0, Baso % (Auto) 0.5, Neut # (Auto) 9.1 H, Lymph # (Auto) 2.4, [place] # (Auto) 0.9, Eos # (Auto) 0.3, Baso # (Auto) 0.1, ESR 61 H, Hemoglobin A1c 6.0, C-Reactive Protein 52.3 H 02/20/25 10:34 Orders (Tests/Meds): ED MEDICATIONS Discontinued Medications Generic Name Dose Route Start Last Admin Trade Name Freq PRN Reason Stop Dose Admin Iopamidol 70 ml 02/20/25 10:43 Iopamidol-370 (76%);100ml Bottle IV 02/20/25 10:44 ONCE ONE Sodium Chloride 10 ml 02/20/25 10:43 Sodium Chloride 0.9% 10ml Syr (Rad Only) IV 02/20/25 10:44 ONCE ONE Sodium Chloride 50 ml 02/20/25 10:43 0.9 % Sodium Chloride 50 Ml Vial IV 02/20/25 10:44 ONCE ONE ORDERS Category Date Time Status POCUS Point of Care (ER Only) Stat Exams 02/20/25 10:13 Completed C-Reactive Protein Stat Lab 02/20/25 10:34 Completed Complete Blood Count Auto Diff Stat Lab 02/20/25 10:34 Completed Erythrocyte Sedimentation Rate Stat Lab 02/20/25 10:34 Completed Hemoglobin A1C Stat Lab 02/20/25 10:34 Completed Blood Culture Stat Micro 02/20/25 10:49 Received Medical Decision Narrative: In summary, this 64-year-old female presents to the emergency department today with hand pain. On initial evaluation patient is hemodynamically stable saturating properly on room air afebrile no acute distress. Differential diagnosis includes but is not limited to cellulitis abscess flexor tenosynovitis deep space hand infection. Based on these concerns, I ordered CBC CRP ESR. Patient is not tachycardic and otherwise well-appearing at this time we will hold off on IV antibiotics. Labs personally reviewed demonstrate leukocytosis and elevated ESR CRP Flexor tendon sheath. [id number] ultrasound concerning for edema surrounding flexor tendon concerning for flexor tenosynovitis I had an interactive discussion with Dr. Arrieta With orthopedic surgery agreed to accept patient to ED for evaluation by orthopedic team. Procedures Limited Ultrasound Indication:: swelling Views:: Indication: Finger pain Identified structures: Flexor tendon Location: Third digit right hand Findings: Fluid surrounding flexor tendon sheath Impression: Concerns for flexor tenosynovitis Images were saved to the permanent archive. The study was technically adequate. Soft tissue CPT codes Neck: 94132-70 Upper extremity: 11252-53 Axilla: 04856-50 Chest wall: 31160-56 Breast: 38521-13 (complete), 15280-28-[RT/LT] (limited) Upper back: 64740-55 Abdominal wall: 87135-27 Pelvic wall: 67727-41 Lower extremity: 81874-36 Other soft tissue: 23264-15 This study was performed by me, and I personally interpreted all images/videos. Based on my clinical judgment, these images were [adequate/inadequate] and [did/did not] necessitate further imaging. Critical Care Critical Care Time Critical Care Time: No
[2025-02-20 10:47] LABS: Basophils # 0.1 K/mm3 (0-0.2); Basophils % 0.5 % (0.1-2.0); Eosinophils # 0.3 Kmm3 (0.0-0.4); Hematocrit 36.9 % (37.0-47.0); Hemoglobin 12.4 g/dL (12.2-16.2); Immature Granulocytes # 0.04 10^3uL; Immature Granulocytes % 0.3 %; Lymphocytes # 2.4 K/mm3 (0.7-4.5); Lymphocytes % 18.8 % (10-50); Mean Corpuscular HGB Conc 33.6 g/dL (31.8-35.4); Mean Corpuscular Hemoglobin 30.2 pg (27.0-31.2); Mean Platelet Volume 10.7 fl (7.4-10.4); Monocytes # 0.9 K/mm3 (0.1-1.0); Monocytes % 6.7 % (1.7-9.3); Neutrophils # 9.1 K/mm3 (1.8-7.8); Neutrophils % 71.7 % (37.0-80.0); Nucleated Red Blood Cells # 0 10^3/uL; Nucleated Red Blood Cells % 0 %; Platelet Count 421 K/mm3 (142-424); Red Cell Distribution Width 14.6 % (11.5-17.5); Red Cell Distribution Width-SD 47.8 fL; White Blood Count 12.7 K/mm3 (4.8-10.8)
[2025-02-20 11:01] LABS: C-Reactive Protein 52.3 mg/L (0-4)
--- NOTE | 2025-02-20 11:42 | PC.NURSE ---
Called [facility] per Dr. Monae for a transfer for flexor tendonitis. [facility] stated that they would give us a call back once the images have been received.
[2025-02-20 11:55] LABS: Erythrocyte Sedimentation Rate 61 mm/hr (0-30)
== END 2025-02-20 13:36 | disposition other institution (70) ==
PROVIDERS: Emergency Provider Student in an Organized Health Care Education/Training Program; PCP Family Medicine
DX: M65.841 Other synovitis and tenosynovitis, right hand (principal); M79.641 Pain in right hand; R70.0 Elevated erythrocyte sedimentation rate; R79.82 Elevated C-reactive protein (CRP); E11.9 Type 2 diabetes mellitus without complications; I10 Essential (primary) hypertension; E78.5 Hyperlipidemia, unspecified; Z87.891 Personal history of nicotine dependence
CPT/HCPCS: 83036; 85025; 85651; 86140; 87040; 99285; Q9967

== ENCOUNTER 2025-03-29 09:47 | Outpatient (CLI) | payer MEDICARE, SELFPAY ==
--- OUTSIDE RECORDS SUMMARY | 2025-02-20 15:46 | XMS_ITS | Encounter Summary ---
Author Organization [facility] Address [address] [place] [address] Care Team Providers Care Hotel Associate Name Role Phone Song Flaherty MD Primary Care Provider [phone] Reason for Referral * Consultation (Urgent) - Closed Specialty Diagnoses / Procedures Referred By Fiorella roque Referred To Contact Hand Surgery Diagnoses Swelling of digit of hand Codie Suarez MD [address] [place] [address] Phone: tel: fax: [facility] [address] [place] [address] Phone: tel: fax: Referral ID Status Reason Start Date Expiration Date V isits Requested Visits Authorized [id number] Closed Specialty Services Required 02/22/2025 08/24/2026 1 1 Scheduling Instructions Right long finger cellulitis, follow up check 1 week Reason for Visit * Reason Comments Hand Injury * Auth/Cert (Routine) Specialty Diagnoses / Procedures Referred By Fiorella t Referred To Contact Diagnoses Flexor tenosynovitis of finger Swelling of digit of hand Flexor tenosynovitis of the right hand Codie Suarez MD [address] [place] [address] Phone: tel: fax: [facility] [address] [place] [address] Referral ID Status Reason Start Date Expiration Date Visits Re quested Visits Authorized [id number] 1 1 Encounter Details Date Type Department Care Team (Latest Contact Info) Description 02/20/2025 3:46 PM EDT - 02/22/2025 1:41 PM EDT Hospital Encounter [facility] [address] [place] [address] Amari Wagner MD [address] [place] [id number] Deisi Tate MD [facility] [place] [address] Ernie Harris MD [facility] [place] [address] Codie Suarez MD [address] [place] [address] Sai Maddox MD [address] [place] [address] Swelling of digit of hand (Primary Dx); Flexor tenosynovitis of finger; Cellulitis of right middle finger Discharge Disposition: Home or Self Care Social History Tobacco Use Types Packs/Day Years Used Date Smoking Tobacco: Never Assessed Humiliation, Afraid, Rape, and Kick questionnair e Answer Date Recorded Within the last year, have y ou been afraid of your partner or ex-partner? No 02/23/2025 Within the last year, have y ou been humiliated or emotionally abused in other ways by your partner or ex-partner? No Within the last year, have y ou been kicked, hit, slapped, or otherwise physically hurt by your partner or ex-partner? No 02/23/2025 Within the last year, have y ou been raped or forced to have any kind of sexual activity by your partner or ex-partner? No 02/23/2025 Social Connection and Isolation Panel Answer Date Recorded Frequency of Communication with Friends and Fami ly Not on file 02/23/2025 Frequency of Social Gatherings with Friends and Family Not on file 02/23/2025 Attends [employer] Services Not on file 02/23 Active Member of Clubs or Organizations Not on f ile 02/23/2025 Attends Club or Organization Meetings Not on dona e 02/23/2025 Are you , , di vorced, , never , or living with a partner? 02/23/2025 Hunger Vital Sign Answer Date Recorded Within the past 12 months, y ou worried that your food would run out before you got the money to buy more. Never true 02/24/20 25 Within the past 12 months, t he food you bought just didn't last and you didn't have money to get more. Never true 02/23/2025 PRAPARE - Transportation Answer Date Re corded In the past 12 months, has l ack of transportation kept you from medical appointments or from getting medications? No 12/2024 In the past 12 months, has l ack of transportation kept you from meetings, work, or from getting things needed for daily living? No 02/23/2025 Housing Stability Vital Sign Answer Joseph e Recorded In the last 12 months, was t here a time when you were not able to pay the mortgage or rent on time? No 02/23/2025 In the past 12 months, how m any times have you moved where you were living? 0 02/23/2025 At any time in the past 12 m [facility], were you homeless or living in a intermediate (including now)? No 02/23/2025 Utilities Answer Date Recorded In the past 12 months has th e electric, gas, oil, or water company threatened to shut off services in your home? No 02/23/2025 Comments Unknown Sex and Gender Information Value Date Recorded Sex Assigned at Not on file Legal Sex Female 6:12 PM EDT Gender Identity Not on file Sexual Orientation Not on file documented as of this encounter Last Filed Vital Signs Vital Sign Reading Time Taken Comments Blood Pressure 108/77 02/22/2025 11:19 AM EDT Pulse 78 02/22/2025 11:19 AM EDT Temperature 36.8 C (98.2 F) 02/22/2025 11:19 AM EDT Respiratory Rate 18 02/22/2025 11:19 AM EDT Oxygen Saturation 98% 02/22/2025 11:19 AM EDT Inhaled Oxygen Concentration - - Weight 86.6 kg (191 lb) 02/20/2025 4:01 PM EDT Height 177.8 cm (5' 10 ) 02/20/2025 4:01 PM EDT Body Mass Index 27.41 02/20/2025 4:01 PM EDT documented in this encounter Functional Status * Calculated C-SSRS Risk Score (Lifetime/Recent) Answer Date of Assessment Author No Risk Indicated 02/22/2025 8:00 AM EDT Joselo Kelly RN * Question Answer Date of Assessment Author 1. Wish to be (Past 1 Month) No 025 8:00 AM EDT Joselo Tracy RN 2. Non-Specific Active Suici donavon Thoughts (Past 1 Month) No 02/22/2025 8:00 AM EDT Becky Tracy RN 6. Suicidal Behavior (Lifetime) No 8:00 AM EDT Joselo Tracy RN documented as of this encounter Medications at Time of Discharge allopurinol (Zyloprim) 300 MG tablet Take 1 tablet by mouth daily. ALPRAZolam (Xanax) 0.25 MG tablet Take 1 tablet by mouth 2 times a day. aspirin 81 MG EC tablet Take 1 tablet by mouth daily. carbamide peroxide (Debrox) 6.5 % otic solution Administer 5 drops into each ear as needed for ear pain. clindamycin (Cleocin) 300 MG capsule take 1 capsule by mouth every 12 hours for 7 days 02/17/2025 Coenzyme Q10 (COQ-10 PO) Take 1 tablet by mouth daily. colchicine (Colcrys) 0.6 MG tablet Take 1 tablet by mouth 2 times a day. 09/16/2024 cyclobenzaprine (Flexeril) 5 MG tablet Take 1 tablet by mouth 3 times a day as needed. 03/22/2024 dexamethasone (Decadron) 2 MG tablet take 1 tablet by mouth every 12 hours for 5 days 03/22/2024 diclofenac (Voltaren) 75 MG EC tablet Take 1 tablet by mouth 2 times a day. Do not crush, chew, or split. Doxylamine Succinate, Sleep, (SLEEP AID PO) Take 1 tablet by mouth as needed. estradiol (Estrace) 1 MG tablet Take 1 tablet by mouth daily. 10/18/2024 FLUoxetine (PROzac) 20 MG capsule Take 1 capsule by mouth daily. 11/18/2024 fluticasone (Flonase) 50 MCG/ACT nasal spray Administer 1 spray into each nostril daily. Shake gently. Before first use, prime pump. After use, clean tip and replace cap. furosemide (Lasix) 40 MG tablet Take 1 tablet by mouth daily. hydrOXYzine HCl (Atarax) 25 MG tablet Take 1 tablet by mouth nightly. levothyroxine (Synthroid, Levoxyl) 137 MCG tablet Take 2 tablets by mouth daily. lisinopril 20 MG tablet Take 1 tablet by mouth daily. metoprolol succinate XL (Toprol-XL) 100 MG 24 hr tablet Take 1 tablet by mouth daily. Do not crush or chew. mupirocin (Bactroban) 2 % ointment APPLY TOPICALLY TO THE AFFECTED AREA THREE TIMES DAILY FOR 7 DAYS 06/03/2024 [place]-3 Fatty Acids (FISH OIL PO) Take 2 capsules by mouth daily. predniSONE (Deltasone) 20 MG tablet Take 1 tablet by mouth 2 times a day. 12/27/2024 rosuvastatin (Crestor) 10 MG tablet Take 1 tablet by mouth daily. Semaglutide, 1 MG/DOSE, (Ozempic, 1 MG/DOSE,) 4 MG/3ML solution pen-injector Inject 1 mg under the skin 1 time per week. spironolactone (Aldactone) 25 MG tablet Take 1 tablet by mouth daily. 08/26/2024 traMADol (Ultram) 50 MG tablet take 1 tablet by mouth 4 times daily as needed 03/22/2024 levoFLOXacin (Levaquin) 750 MG tabletIndications:S welling of digit of hand,Flexor tenosynovitis of finger,Cellulitis of right middle finger Take 1 tablet by mouth daily for 8 days. 8 tablet 02/22/2025 linezolid (Zyvox) 600 MG tabletIndications:S welling of digit of hand,Flexor tenosynovitis of finger,Cellulitis of right middle finger Take 1 tablet by mouth 2 times a day for 8 days. 16 tablet 02/22/2025 documented as of this encounter Miscellaneous Notes * Progress Notes - Miranda Sargent RN - 02/22/2025 11:35 AM EDT Case Management Discharge Note Woodrow Boone 64 y.o. female CSN: [id number] Admission: 02/20/2025 3:46 PM Primary Problem: Flexor tenosynovitis of finger Primary Waitstaff: Primary Caregiver: Self Assistance Available at Discharge: Availability of Care Givers (#Hours): No assistance needed Housing Circumstances-Z Codes: Housing Circumstances (select all that apply): Low Income (101-300% Federal Poverty Guidlines) - Z596 Patient Referred to Financial or Community Resources: Financial Resources: Other (Comment) (Pt reported no Financial or Community Resources needs at thistime) Discharge Facility/Level of Care Needs: Discharge Facility/Level of Care Needs: 1-Home or Self Care Patient's Choice of Community Agency(s): Patient/Family Anticipated Services at Transition: Patient/Family Anticipated Services at Transition: none DME/Equipment Needed after Discharge: Equipment Currently Used at Home: none Equipment Needed After Discharge: none Readmission Within the Last 30 Days: Readmission Within the Last 30 Days: no previous admission in last 30 days Follow-up: Umu Monae MD [address] [facility] [address] Song Flaherty MD [address] [facility] [address] [place] [id number] Schedule an appointment as soon as possible for a visit in 1 week(s) Discharge Transportation: Transportation Home at Discharge: Family/Friend will Provide Has discharge transport been arranged?: No What day is the transport expected?: 02/22/25 What time is the transport expected?: 1500 Follow Up Transport: Transportation Needed to Follow up Appoinments: Family/Friend will Provide, Self Additional Comments: Discussed with multidisciplinary team, per team pt is medically ready to d/c. Pt will d/c home on this day with no d/c needs. Pt is independent with ADL's, does not use any DME/O2 at home. Per pt herfamily will provide her with transportation home at d/c. There is no other d/c needs reported or identified at this time. RN CM will remain available and assist as needed. Miranda Sargent RN * Discharge Summary - Kings Garcia MD - 02/22/2025 11:12 AM EDT Hospitalization Admit Date/Time: 02/20/2025 3:46 PM Admitting Attending: Codie Suarez Discharge Date: 02/22/25 Discharge Attending Physician: Sai Maddox MD PCP name and Address: Song Flaherty MD [address] [facility] [place] [address] Referring provider name and address: Umu Monae MD [address] [place] [address] Chief Concern, Brief History of Present Illness, and Hospital Course Woodrow Boone is a 64 y.o. female with PMH of hypertension, HFpEF, hypothyroidism, gout who presents with right 3rd finger pain, swelling and erythema following a fall on an outstretched hand with elevated CRP, ESR, leukocytosis and imaging findings concerning for pyogenic flexor synovitis. She was evaluated by the orthopedic surgery team who recommended hospital admission for IV antibiotics and serial exams. She was initially placed on vancomycin and meropenem given her anaphylactic penicillin allergy. Antibiotics were deescalated to Linezolid and Levofloxacin on 02/22 which she will discharge with. She is to continue Abx until 03/02/25 for a 10 day course. Ortho evaluated her on day of discharge and were less concerned for pyogenic 3rd finger flexor synovitis and feel it is more likely cellulitis. They recommend oral Abx, TID soaks, and elevation. She will have an orthopedic follow up within 1 week of discharge which they are setting up. #3rd finger abrasion concerning for pyogenic flexor synovitis vs cellulitis -Investigation: -Fall onto outstretched hand 5 days prior to admission resulting in 3rd finger volar PIP abrasion. -Progressive pain, swelling, and erythema -Sutured in OSH ED 02/16. Clindamycin and Bactrim started 02/17 -WBC 14.59, ESR 60, CRP 36.0 -R hand XR with soft tissue swelling about the 3rd digit without gas or foreign body -R hand CT with IV contrast demonstrated findings concerning for pyogenic flexor synovitis of the 3rd digit -Exam with volar DIP abrasion, erythema and swelling. No purulence. See image above -Intervention: -Ortho evaluated patient and recommended IV Abx, hospital admission; Re-eval 02/22 and okay with discharge on oral Abx, close follow up -IV Vancomycin + meropenem started on admission. De-escalated to Linezolid and Levofloxacin on 02/22 for which she will discharge with. She is to continue Abx until 03/02/25. -No tetanus give PT report last booster was <1 year ago at [facility] End result -Start Linezolid and Levofloxacin until 03/02/2025 -CBC and CRP prior to ortho follow up (ordered) -Follow up with ortho in 1 week (they will schedule) -Patient given instructions for quick return to ED in case of worsening pain/redness/ pus discharge, fever/ swelling etc. #Acute hepatic injury without failure -ALT 47 on admission, AST normal -Unclear baseline -Ddx for mildly elevated aminotransferases: Congestive hepatopathy, chronic viral hepatitis, autoimmune hepatitis, MASH, muscle injury, thyroid disease. -Etiology unclear at this time but patient without abdominal complaints. Given obesity, HTN, HFpEF would favor MASH. End result -Recommend repeat LFTs in 3-6 months with PCP -Consider RUQ outpatient Chronic medical conditions -HFpEF: Restarted home furosemide 40 mg, metoprolol succinate 100 mg, lisinopril 20 mg. Appears euvolemic. -HTN: continue home lisinopril 20 mg daily -HLD: continue home rosuvastatin 10 mg daily -DM, type II: last A1c 6% per patient, diet controlled. Declines SSI after discussing risks/benefits with ED staff. Surgeries and Procedures Procedures performed in this encounter Procedures POC Ultrasound - Bedside Medication List .. allopurinol 300 MG tablet Commonly known as: Zyloprim Take 1 tablet by mouth daily. ALPRAZolam 0.25 MG tablet Commonly known as: Xanax Take 1 tablet by mouth 2 times a day. aspirin 81 MG EC tablet Take 1 tablet by mouth daily. carbamide peroxide 6.5 % otic solution Commonly known as: Debrox Administer 5 drops into each ear as needed for ear pain. COQ-10 PO Take 1 tablet by mouth daily. diclofenac 75 MG EC tablet Commonly known as: Voltaren Take 1 tablet by mouth 2 times a day. Do not crush, chew, or split. FISH OIL PO Take 2 capsules by mouth daily. fluticasone 50 MCG/ACT nasal spray Commonly known as: Flonase Administer 1 spray into each nostril daily. Shake gently. Before first use, prime pump. After use, clean tip and replace cap. furosemide 40 MG tablet Commonly known as: Lasix Take 1 tablet by mouth daily. levoFLOXacin 750 MG tablet Commonly known as: Levaquin Take 1 tablet by mouth daily for 8 days. levothyroxine 137 MCG tablet Commonly known as: Synthroid, Levoxyl Take 2 tablets by mouth daily. linezolid 600 MG tablet Commonly known as: Zyvox Take 1 tablet by mouth 2 times a day for 8 days. lisinopril 20 MG tablet Take 1 tablet by mouth daily. metoprolol succinate XL 100 MG 24 hr tablet Commonly known as: Toprol-XL Take 1 tablet by mouth daily. Do not crush or chew. Ozempic (1 MG/DOSE) 4 MG/3ML solution pen-injector Generic drug: Semaglutide (1 MG/DOSE) Inject 1 mg under the skin 1 time per week. rosuvastatin 10 MG tablet Commonly known as: Crestor Take 1 tablet by mouth daily. SLEEP AID PO Take 1 tablet by mouth as needed. . hydrOXYzine HCl 25 MG tablet Commonly known as: Atarax Take 1 tablet by mouth nightly. Where to Get Your Medications These medications were sent to [facility] [place], [place] - [address] [facility] [id number] levoFLOXacin 750 MG tablet linezolid 600 MG tablet Discharge Diagnosis Medical Problems Active and Resolved Hospital Problems Hospital * (Principal) Flexor tenosynovitis of finger Swelling of digit of hand Cellulitis of middle finger, right Post Discharge Instructions Follow up with orthopedic surgery within 1 week. CBC and CRP lab draws prior to ortho appointment Outpatient Follow-Up Future Appointments Date Time Provider Department Center 03/03/2025 9:30 AM Christina Moise PA HAND [facility] Test Results Pending At Discharge Pending Labs Order Current Status Blood Culture (Aerobic/Anaerobet Set) Preliminary result Blood Culture (Aerobic/Anaerobet Set) Preliminary result Pertinent Physical Exam At Time of Discharge Physical Exam Constitutional: General: She is not in acute distress. Appearance: Normal appearance. She is not ill-appearing. HENT: Head: Normocephalic. Mouth/Throat: Mouth: Mucous membranes are moist. Eyes: Extraocular Movements: Extraocular movements intact. Conjunctiva/sclera: Conjunctivae normal. Cardiovascular: Rate and Rhythm: Normal rate and regular rhythm. Pulses: Normal pulses. Pulmonary: Effort: Pulmonary effort is normal. No respiratory distress. Breath sounds: Normal breath sounds. Abdominal: General: Abdomen is flat. Palpations: Abdomen is soft. Musculoskeletal: Cervical back: Normal range of motion. Comments: 3rd finger volar PIP abrasion with swelling. Circumferential erythema. No purulence. Distal cap refill, distal sensation intact. Skin: General: Skin is warm and dry. Capillary Refill: Capillary refill takes less than 2 seconds. Coloration: Skin is not jaundiced. Neurological: General: No focal deficit present. Mental Status: She is alert and oriented to person, place, and time. Mental status is at baseline. Cranial Nerves: No cranial nerve deficit. Psychiatric: Mood and Affect: Mood normal. Behavior: Behavior normal. Thought Content: Thought content normal. Judgment: Judgment normal. Discharge Disposition/Condition Disposition: Home Condition: Stable (s/sx potential problems absent or manageable) I spent >30 minutes of patient care and instruction time in preparation for this discharge. Kings Garcia MD PM&R PGY-1 Cosigned by Sai Maddox MD at 02/22/2025 1:46 PM EDT Associated attestation - Sai Maddox MD - 02/22/2025 1:46 PM EDT I saw and evaluated the patient with the resident/fellow. I discussed the case with the resident/fellow and agree with the findings and plan as documented. * Care Plan - Joselo Tracy RN - 02/22/2025 7:53 AM EDT Problem: Adult Inpatient Plan of Care Goal: Plan of Care Review Outcome: Ongoing, Progressing Goal: Patient-Specific Goal (Individualized) Outcome: Ongoing, Progressing Goal: Absence of Hospital-Acquired Illness or Injury Outcome: Ongoing, Progressing Goal: Optimal Comfort and Wellbeing Outcome: Ongoing, Progressing Goal: Readiness for Transition of Care Outcome: Ongoing, Progressing * Progress Notes - Chris Farris MD - 02/22/2025 6:26 AM EDT ORTHOPAEDIC SURGERY PROGRESS NOTE SUBJECTIVE No acute events overnight reported by patient. Doing well. Pain controlled. Tolerating diet. No nausea, vomiting, fevers or chills. OBJECTIVE Visit Vitals BP 124/73 Pulse 83 Temp 36.9 ??C (98.4 ??F) Ht 1.778 m (5' 10 ) Wt 86.6 kg (191 lb) SpO2 96% BMI 27.41 kg/m?? Labs in last 18 hours CBC WBC 14.81 (H) Hb 12.3 Plt 452 (H) Hct 36.8 ANC 10.06 (H) INR ??, PTT ??, Anti-Xa ?? BMP Na 136 Cl 102 BUN 30 (H) Glu 116 (H) K 4.5 Co2 21 (L) Cr 0.92 Ca 9.1 iCa ?? Mg ??, Phos ?? Lactate ?? LFT AST ?? AlkPhos ?? T Prot ?? ALK ?? Bili ?? Alb ?? D.Bili ?? PHYSICAL EXAMINATION No acute distress Non labored breathing Peripheral perfusion intact FOCUSED MUSCULOSKELETAL EXAM Right upper extremity There is isolated swelling and erythema over the proximal aspect of the volar right long finger. There is tenderness to palpation over the volar flexor tendon in this region however this does not extend distally to the P2 and P3 segments. She has no pain with passive extension of digit. She can fully actively extend her digit without pain. She can flex to 3 cm shy of the palm which is likely related to her swelling. No fixed posturing of digit. No tenderness to palpation along the palmar aspects of other digits. No erythema about the palm or dorsum of the hand. Capillary refill less than 2 seconds of all digits. Sensation intact to light touch along radial and ulnar aspects of all digits which is symmetric to contralateral upper extremity. ASSESSMENT AND PLAN Woodrow Boone is a 64 y.o. female patient with R LF cellulitis, r/o FTS Edited by: Chris Farris MD at 02/21/2025 0526 Mobility Orders Mobility Protocol: General - Mobility Guidelines Extremity Precautions: No Extremity Precautions Other mobility precautions: No other precautions required Patient continuing to do well on clinical examination and inflammatory markers continuing to improve. She does have residual cellulitis over the volar aspect of right middle finger however is isolated to P1 segment with point tenderness to palpation in this region and no tenderness distally about flexor tendon sheath. 0/4 [place] signs. She is appropriate for discharge per orthopaedic surgery perspective, recommend 10 day course of antibiotic therapy. Orthopaedic surgery will schedule follow upin 1 week for clinical check. Return to care precautions provided to patient this AM. Continue to elevate for edema control and soak three times daily. Derick Farris MD PGY-2, Orthopaedic Surgery [facility] Orthopaedic Trauma Service Pager: [phone] Orthopaedic Recon/Spine/Foot and Ankle Service Pager: [phone] Cosigned by Carlos Fofana MD at 02/23/2025 9:12 AM EDT Associated attestation - Carlos Fofana MD - 02/23/2025 9:12 AM EDT I saw and evaluated the patient with the resident/fellow. I discussed the case with the resident/fellow and agree with the findings and plan as documented. * Care Plan - Juwan Blackburn - 02/22/2025 5:11 AM EDT Problem: Adult Inpatient Plan of Care Goal: Plan of Care Review Outcome: Ongoing, Progressing Flowsheets (Taken 02/22/2025 5845) Progress: no change Outcome Evaluation: pt VSS, alert and oriented x4, wound care performed as ordered and call light in reach. No current complaints of pain at this time. Plan of Care Reviewed With: patient * Significant Event - Chris Farris MD - 02/21/2025 4:38 PM EDT ORTHOPAEDIC HAND SURGERY INTERIM SUMMARY Patient reporting improved pain as well as swelling in her right long finger. She has been elevating her hand which is helped with the edema control and soaking which is helped with the pain as well.She also reports reduced redness. On examination, she does have reduced redness and swelling over the volar aspect of the right long finger P1 segment compared to examination this morning. She does have tenderness over the flexor tendon sheath in this region however it is isolated to this level anddoes not extend distally to the P2 or P3 segments. No fusiform swelling of the digit. No pain with passive extension of the digits. No expansile erythema elsewhere. We will continue to monitor clinically however patient does not have clinical findings of flexor tenosynovitis on examination and her examination is most consistent with cellulitis. Recommend continued IV antibiotic therapy. If she continues to improve, she could likely discharge on oral antibiotics therapy tomorrow per orthopedic surgery perspective with close follow up in 1 week. Derick Farris MD PGY-2, Orthopaedic Surgery [facility] Orthopaedic Trauma Service Pager: [phone] Orthopaedic Recon/Spine/Foot and Ankle Service Pager: [phone] * Hospital Course - Kings Garcia MD - 02/21/2025 2:47 PM EDT Woodrow Boone is a 64 y.o. female with PMH of hypertension, HFpEF, hypothyroidism, gout who presents with right 3rd finger pain, swelling and erythema following a fall on an outstretched hand with elevated CRP, ESR, leukocytosis and imaging findings concerning for pyogenic flexor synovitis. She was evaluated by the orthopedic surgery team who recommended hospital admission for IV antibiotics and serial exams. She was initially placed on vancomycin and meropenem given her anaphylactic penicillin allergy. Antibiotics were deescalated to Linezolid and Levofloxacin on 02/22 for which she will discharge with. She is to continue Abx until 03/02/25. Ortho evaluated her on day of discharge and were less concerned for pyogenic 3rd finger flexor synovitis and feel it is more likely cellulitis. They recommend oral Abx, TID soaks, and elevation. She will have an orthopedic follow up within 1 week of discharge which they are setting up. #3rd finger abrasion concerning for pyogenic flexor synovitis vs cellulitis -Investigation: -Fall onto outstretched hand 5 days prior to admission resulting in 3rd finger volar PIP abrasion. -Progressive pain, swelling, and erythema -Sutured in OSH ED 02/16. Clindamycin and Bactrim started 02/17 -WBC 14.59, ESR 60, CRP 36.0 -R hand XR with soft tissue swelling about the 3rd digit without gas or foreign body -R hand CT with IV contrast demonstrated findings concerning for pyogenic flexor synovitis of the 3rd digit -Exam with volar DIP abrasion, erythema and swelling. No purulence. See image above -Intervention: -Ortho evaluated patient and recommended IV Abx, hospital admission; Re-eval 02/22 and okay with discharge on oral Abx, close follow up -IV Vancomycin + meropenem started on admission. De-escalated to Linezolid and Levofloxacin on 02/22 for which she will discharge with. She is to continue Abx until 03/02/25. -No tetanus give PT report last booster was <1 year ago at [facility] End result -Start Linezolid and Levofloxacin until 03/02/2025 -CBC and CRP prior to ortho follow up (ordered) -Follow up with ortho in 1 week (they will schedule) #Acute hepatic injury without failure -ALT 47 on admission, AST normal -Unclear baseline -Ddx for mildly elevated aminotransferases: Congestive hepatopathy, chronic viral hepatitis, autoimmune hepatitis, MASH, muscle injury, thyroid disease. -Etiology unclear at this time but patient without abdominal complaints. Given obesity, HTN, HFpEF would favor MASH. End result -Recommend repeat LFTs in 3-6 months with PCP -Consider RUQ US outpatient Chronic medical conditions -HFpEF: Restarted home furosemide 40 mg, metoprolol succinate 100 mg, lisinopril 20 mg. Appears euvolemic. -HTN: continue home lisinopril 20 mg daily -HLD: continue home rosuvastatin 10 mg daily -DM, type II: last A1c 6% per patient, diet controlled. Declines SSI after discussing risks/benefits with ED staff. * Progress Notes - Kris Parra - 02/21/2025 12:38 PM EDT Case Management Adult Initial Progress Note Woodrow Boone 64 y.o. female CSN: [id number] Admission: 02/20/2025 3:46 PM Primary Problem: Flexor tenosynovitis of finger Assistant Professor Of Communication reviewed chart and spoke with patient at bedside to complete this Initial Case Management Assessment. PCP: Song Flaherty MD Emergency Contact: Extended Emergency Contact Information Primary Emergency Contact: deena boone Mobile Relation: Relative Preferred language: Brazilian Clerk Typist needed? No Insurance: Primary Visit Coverage Payer Plan Sponsor Code Group Number Group Name MEDICARE MEDICARE A & B Primary Visit Coverage Subscriber Subscriber ID Subscriber Name Subscriber SSN Subscriber Address [id number] WOODROW BOONE [id number] [id number] [facility] [address] [place] [address] Patient information: Primary Caregiver: Self Support System: Extended family Daily Living Activities: Functional Status: Independent Living Arrangements: Alone Type of Residence: Private residence, Single Level [address] [facility] [address] Smoker in the Home?: No Current DME: Equipment Currently Used at Home: none Current DME Provider: None Applicable Income Information: Income Source: Retired Income/Expense Information: Income meets expenses Current Resources Utilized: None Housing Circumstances-Z Codes: Housing Circumstances (select all that apply): Low Income (101-300% Federal Poverty Guidlines) - Z596 Patient Referred to: Financial Resources: Other (Comment) (Pt reported no Financial or Community Resources needs at thistime) Anticipated Discharge Date: TBD Patient's Discharge Goal: To discharge back home. Assistance Available at Discharge: Family Discharge Transport: Family (Deena Boone: Sister- In Law) Follow Up Transport: Self Home Health / Home Infusion / Outpatient Dialysis Services: Current DME Provider: None Applicable Living Will/Advance Directive/Power of Hog Sticker /Guardian: Unable to assess: No Have you reviewed your Advance Directive and is it valid for this stay?: No Advance Directive: Patient has advance directive, copy not in chart Advance Directive not in Chart: Copy requested from family Information Provided on Healthcare Directives: No Pre-existing DNR/DNI Order: No Patient Requests Assistance: No Additional Comments: SW introduced himself and CM role. Pt confirmed demographics, PCP, EC and insurance on face sheet are accurate. Pt lives at [address] [place] [address] and reported living alone. Pt reported home is single level with 1-2 steps to enter the home. Pt reported that she is a and reported losing her a year ago. Pt is retired. Pt reported that they are independent with their ADLs, ambulation and drives. Pt denies HH, O2, infusions, HD. Pt reported that she has POA at home, but currently not with her. SW requested for family or patient to have copy sent to the hospital. Pt reported that she would attempted to get a copy for the hospital and reported that her nieces are POA. Pt reported that she has DME equipment at home but it washer equipment, that she doesn't utilize any of the DME at home. Preferred pharmacy- [facility]; Pt's sister in law or family to provide transportation upon discharge. Pt reported no issues with Housing, Food, Utilities, Transportation or Safety issues at this time. Pt reported their highest level of education is High School Diploma. SW will continue to follow and assist as needed. * H&P - Kings Garcia MD - 02/21/2025 11:46 AM EDT Images from the original note were not included. Hospital Medicine History & Physical Subjective 02/20/2025 Chief Complaint: Chief Complaint Patient presents with Hand Injury History Of Present Illness Woodrow Boone is a 64 y.o. female with a PMH of hypertension, HFrEF, hypothyroidism who presents with 5 days of right 3rd finger pain and swelling. She reports that 5 days ago she fell onto an outstretched hand causing a superficial abrasion on the volar DIP joint. Due to the abrasion she presented [facility] at which time it was washed out and stitches were placed but she was not started on any antibiotics this day. The following day she saw her primary care provider due to worsening pain and swelling. Her primary care doctor started her on clindamycin and Bactrim with return precautions. Since that time she has noticed increasing pain, decreased range of motion, swelling, erythema of the 3rd finger. She denies fevers, chills, other infectious type symptoms. She denies pain into the other fingers, and, wrist or anymore proximal. ED course was notable for a white blood cell count of 14.59, platelets of 404, unremarkable BMP, elevated CRP 236 and ESR to 60. X-ray of the 3rd digit demonstrated soft tissue swelling. CT scan of the hand with IV contrast was notable for pyogenic flexor synovitis of the 3rd digit. She was evaluated by the orthopedic surgery team who remove the stitches, manually decompress the wound and recommended admission for IV antibiotics. Past Medical History Hypertension Heart failure with preserved ejection fraction Hypothyroidism Gout Surgical History This patient has no significant past surgical history in relation to her presenting symptom. Social History Social History[1] Quit tobacco use 17 years ago Travel History Travel Screening Question Response Have you been in contact with someone who was sick? No / Unsure Do you have any of the following new or worsening symptoms? None of these Have you traveled internationally or domestically in the last month? No Travel History Travel since 01/21/25 No documented travel since 01/21/25 Immunizations Immunization History Administered Date(s) Administered Moderna Covid-19 Vaccine 12y+, Raymon Protein, Preservative free 07/09/2023 Pfizer Covid-19 Vaccine 12y+, Raymon Protein, PF, Chaparro-Sucrose 06/04/2024 [place] COVID-19 Vaccine (Purple Cap) 12+ 01/19/2021 Allergies Penicillin g, Erythromycin, and Tolmetin Home Medications No current outpatient medications Review of Systems Review of Systems Objective Last Recorded Vitals Blood pressure 128/78, pulse 77, temperature 36.8 ??C (98.3 ??F), temperature source Oral, resp. rate 16, height 1.778 m (5' 10 ), weight 86.6 kg (191 lb), SpO2 93%. Physical Exam Constitutional: General: She is not in acute distress. Appearance: Normal appearance. She is not ill-appearing. HENT: Head: Normocephalic and atraumatic. Nose: Nose normal. Eyes: Extraocular Movements: Extraocular movements intact. Conjunctiva/sclera: Conjunctivae normal. Cardiovascular: Rate and Rhythm: Normal rate. Pulses: Normal pulses. Heart sounds: Normal heart sounds. No murmur heard. No friction rub. No gallop. Pulmonary: Effort: Pulmonary effort is normal. No respiratory distress. Breath sounds: Normal breath sounds. Abdominal: General: Abdomen is flat. There is no distension. Palpations: Abdomen is soft. Tenderness: There is no guarding or rebound. Musculoskeletal: General: Swelling, tenderness, deformity and signs of injury present. Cervical back: Normal range of motion. Comments: 3rd finger volar DIP abrasion with circumferential erythema. Serous drainage noted. Cap refill < 2s distal Skin: General: Skin is warm and dry. Capillary Refill: Capillary refill takes less than 2 seconds. Coloration: Skin is not jaundiced. Findings: No bruising. Neurological: General: No focal deficit present. Mental Status: She is alert and oriented to person, place, and time. Mental status is at baseline. Psychiatric: Mood and Affect: Mood normal. Behavior: Behavior normal. Thought Content: Thought content normal. Judgment: Judgment normal. Data Labs in last 18 hours CBC WBC 14.59 (H) Hb 11.7 Plt 404 (H) Hct 34.7 ANC 10.29 (H) INR ??, PTT ??, Anti-Xa ?? BMP Na 140 Cl 107 BUN 27 (H) Glu 83 K 4.7 Co2 21 (L) Cr 0.89 Ca 9.2 iCa ?? Mg ??, Phos ?? Lactate ?? LFT AST 23 AlkPhos 137 T Prot 6.6 ALK 42 (H) Bili 0.3 Alb ?? D.Bili ?? IMAGING (past 24h): Right hand XR: Soft tissue swelling about the 3rd digit without gas or foreign body CT right hand with IV contrast: Findings concerning for pyogenic flexor synovitis of the 3rd digit Assessment/Plan Principal Problem: Flexor tenosynovitis of finger Woodrow Boone is a 64 y.o. female with PMH as per above who presents with right 3rd finger pain, swelling and erythema with elevated CRP, ESR, leukocytosis and imaging findings concerning for pyogenic flexor synovitis. She is currently afebrile and hemodynamically stable. This condition poses an acutethreat to life/bodily function. #Pyogenic 3rd finger flexor synovitis, stage 1 # Acute pain -Fall onto outstretched hand 5 days ago resulting in 3rd finger volar DIP abrasion. -Progressive pain, swelling, and erythema -Sutured in OSH ED 02/16. Clindamycin and Bactrim started 02/17 -Hx of anaphylaxis to penicillins -WBC 14.59, ESR 60, CRP 36.0 -R hand XR with soft tissue swelling about the 3rd digit without gas or foreign body -R hand CT with IV contrast demonstrated findings concerning for pyogenic flexor synovitis of the 3rd digit -Exam with volar DIP abrasion, erythema and swelling. No purulence. See image above -Stage 1 infection given exudative fluid -Ortho evaluated the patient and emergency department and recommend admission for IV antibiotics. No plans for operating room at this time but we will follow along for repeat exams and possible operative intervention in the future. -Per PT report last tetanus booster was <1 year ago at [facility] PLAN -IV abx with Vancomycin and Meropenem today. Likely de-escalate to Vancomycin + Aztreonam 02/22 -Ortho following for serial exams, no operative intervention today -Bcx pending -CBC in AM #Acute hepatic injury without failure -ALT 47 on admission, AST normal -Unclear baseline -Ddx for mildly elevated aminotransferases: Congestive hepatopathy, chronic viral hepatitis, autoimmune hepatitis, MASH, muscle injury, thyroid disease. -Etiology unclear at this time but patient without abdominal complaints. Given obesity, HTN, HFpEF would favor MASH. PLAN -Recommend repeat LFTs in 3-6 months with PCP -Consider RUQ US outpatient Chronic medical conditions -HFpEF: Restarted home furosemide 40 mg, metoprolol succinate 100 mg, lisinopril 20 mg. Appears euvolemic. -HTN: continue home lisinopril 20 mg daily -HLD: continue home rosuvastatin 10 mg daily -DM, type II: last A1c 6% per patient, diet controlled. Declines SSI after discussing risks/benefits with ED staff. Fluids: PO DVT Ppx: PLOV Diet: Regular diet Code status: Full Code Dispo: Admit to Floor Kings Garcia MD PM&R PGY-1 [1] Cosigned by Codie Suarez MD at 02/21/2025 11:32 PM EDT Associated attestation - Codie Suarez MD - 02/21/2025 11:32 PM EDT I saw and evaluated the patient with the resident/fellow. I discussed the case with the resident/fellow and agree with the findings and plan as documented. * Progress Notes - Kris Parra - 02/21/2025 10:22 AM EDT Case Management Adult Progress Note Woodrow Boone 64 y.o. female CSN: [id number] Admission: 02/20/2025 3:46 PM Primary Problem: Flexor tenosynovitis of finger Anticipated Discharge Date: TBD Plan of care reviewed with pt's care team; and per MD, pt is not medically ready for discharge due to Pending Hand CT, Pending Operative Plans, and Pending Serial Exams. SW will follow up with Pt to complete Initial assessment. SW will continue to follow-up with pt's MD and care team on their progress and discharge plan. Kris Parra MSW, DIABETES SOLUTIONS SPECIALIST * Progress Notes - Alexandria Sahu, PharmD - 02/21/2025 7:02 AM EDT Pharmacokinetic Consult - Therapeutic Drug Monitoring HPI and Hospital Course: Woodrow Boone is a 64 y.o. female presenting with right hand cellulitis who was started on IV vancomycin for Cellulitis, Skin and Soft Tissue. Pharmacy was consulted for management of vancomycin. Dose History: Recent Vancomycin Admin vancomycin IVPB 1750 mg in 250 mL NS IVPB (mg) 1,750 mg New Bag 02/20/25 1715 Wt Readings from Last 1 Encounters: 02/20/25 86.6 kg (191 lb) BMI: 27.41 kg/m?? Creatinine, Plasma (mg/dL) Date/Time Value 02/21/2025 0332 0.89 02/20/2025 1544 1.16 (H) Estimated Creatinine Clearance: 75.3 mL/min (by C-G formula based on SCr of 0.89 mg/dL). Assessment Estimated kinetic evaluation utilizing population kinetics: Vancomycin Dosing Method Vancomycin Dose Calculation Method Area under the curve (AUC) dosing General Parameters for Vancomycin Dose Calculation (AUC) Dosing Weight 86.6 kg (190 lb 14.7 oz) Vancomycin clearance calculation method Matzke equation Administer over 90 minutes AUC 24 hr goal (mg-hr/L) 500 mg??hr/L Estimated creatinine clearance (mL/min 75 mL/min Matzke Equation Parameters for Vancomycin Dose Calculation (AUC) Estimated vancomycin Vd (0.7 L/kg typically) 0.7 L/kg (Typical) Crass Equation Parameters for Vancomycin Dose Calculation (AUC) Serum creatinine (mg/dL) 0.89 mg/dL Recommended Initial Vancomycin Dosing Estimated Ke (hr ^-1) 0.0667 hr^-1 Estimated half-life (hr) 10.39 hr Estimated vancomycin Cl (L/hr) 4.043 Recommended TDD (mg) 2020.5 Plan 1. Patient received loading dose of 1750 mg (20 mg/kg) on 02/20/2025 @ 1715 2. Recommend initiating vancomycin 1000 mg IV q12h for a total daily dose of 2000 mg and predicted AUC of 495 mg??hr/L. 3. Monitor renal function (Scr and BUN) and UOP at least 2-3x/week or more frequently if renal function changes. 4. Obtain vancomycin levels around the 4th dose of new regimen if therapy is to be continued. Pharmacy will continue to follow. Alexandria Sahu PharmD, [facility] Emergency Medicine Clinical Pharmacist Available via SecureChat * Progress Notes - Chris Farris MD - 02/21/2025 6:40 AM EDT ORTHOPAEDIC SURGERY PROGRESS NOTE SUBJECTIVE No acute events overnight reported by patient. Doing well. Pain controlled. Tolerating diet. No nausea, vomiting, fevers or chills. OBJECTIVE Visit Vitals BP (!) 148/83 Pulse 75 Temp 36.9 ??C (98.5 ??F) Ht 1.778 m (5' 10 ) Wt 86.6 kg (191 lb) SpO2 96% BMI 27.41 kg/m?? Labs in last 18 hours CBC WBC 14.59 (H) Hb 11.7 Plt 404 (H) Hct 34.7 ANC 10.29 (H) INR ??, PTT ??, Anti-Xa ?? BMP Na 140 Cl 107 BUN 27 (H) Glu 83 K 4.7 Co2 21 (L) Cr 0.89 Ca 9.2 iCa ?? Mg ??, Phos ?? Lactate ?? LFT AST 23 AlkPhos 137 T Prot 6.6 ALK 42 (H) Bili 0.3 Alb ?? D.Bili ?? PHYSICAL EXAMINATION No acute distress Non labored breathing Peripheral perfusion intact FOCUSED MUSCULOSKELETAL EXAM Right upper extremity There is isolated swelling and erythema over the proximal aspect of the volar right long finger. There is tenderness to palpation over the volar flexor tendon in this region however this does not extend distally to the P2 and P3 segments. She has no pain with passive extension of digit. She can fully actively extend her digit without pain. She can flex to 3 cm shy of the palm which is likely related to her swelling. No fixed posturing of digit. No tenderness to palpation along the palmar aspects of other digits. No erythema about the palm or dorsum of the hand. Capillary refill less than 2 seconds of all digits. Sensation intact to light touch along radial and ulnar aspects of all digits which is symmetric to contralateral upper extremity. ASSESSMENT AND PLAN Tnger Marium is a 64 y.o. female patient with R LF cellulitis, r/o FTS Edited by: Chris Farris MD at 02/21/2025 0526 Mobility Orders Mobility Protocol: General - Mobility Guidelines Extremity Precautions: No Extremity Precautions Other mobility precautions: No other precautions required CT scan of right hand does demonstrate fluid around her flexor tendon sheath with possible enhancement however clinical examination does not fit findings consistent with flexor tenosynovitis. This appears most consistent with cellulitis and possibly reactive fluid in her flexor tendon sheath. She has 0/4 Kanavel signs present. Recommend IV antibiotic therapy and admission to hospital Medicine for serial observations per Orthopedic surgery. We do not anticipate need for surgical intervention at this time however we will continue to closely follow and intervene if her examination worsens Elevate for edema control TID warm soaks Rest of care per primary team. Derick Farris MD PGY-2, Orthopaedic Surgery [facility] Orthopaedic Trauma Service Pager: [phone] Orthopaedic Recon/Spine/Foot and Ankle Service Pager: [phone] Cosigned by Carlos Fofana MD at 02/23/2025 9:06 AM EDT Associated attestation - Carlos Fofana MD - 02/23/2025 9:06 AM EDT Signature only. * H&P - Umesh Stover MD - 02/20/2025 6:02 PM EDT Subjective Chief complaint Hand pain and drainage History Of Present Illness Woodrow Boone is a 64 y.o. female with past medical history most notable for DM, HFpEF who presents tot ED from an outside hospital for evaluation of hand pain and swelling. She states that around five days ago she fell on her outstretched hand and following this noted bruising of the hand. Over the ensuing days, the patient noted the her right middle finger began to swell and become erythematous. She noted scant discharge and was seen by her PCP, who prescribed Bactrim and clindamycin. However, her pain progressed and she went to the [facility]. She was told that she might have flexortenosynovitis and was transferred here. ED course: ortho consulted and wanted patient placed in observation status for IV antibiotics. XR notable for diffuse soft tissue swelling. She was started on meropenem and vancomycin and obs consulted for admission. Medical/Surgical/Social/Family History I have reviewed and updated the patient history. Allergies Penicillin g, Erythromycin, and Tolmetin Medications Current Medications[1] Objective Review of Systems Constitutional: Negative for chills and fever. Respiratory: Negative for shortness of breath. Musculoskeletal: Hand pain Skin: Positive for rash. Physical Exam Constitutional: General: She is not in acute distress. Appearance: She is not toxic-appearing. HENT: Head: Normocephalic and atraumatic. Cardiovascular: Rate and Rhythm: Normal rate and regular rhythm. Heart sounds: Normal heart sounds. No murmur heard. No gallop. Pulmonary: Effort: Pulmonary effort is normal. No respiratory distress. Breath sounds: Normal breath sounds. No rales. Abdominal: General: There is no distension. Musculoskeletal: Cervical back: Neck supple. Right lower leg: Edema (trace) present. Left lower leg: Edema (trace) present. Comments: Unable to make fist with right hand Swelling and erythema with oozing of blood from right 3rd digit Skin: General: Skin is warm and dry. Neurological: Mental Status: She is alert. Psychiatric: Mood and Affect: Mood normal. Behavior: Behavior normal. Thought Content: Thought content normal. Last Recorded Vitals Blood pressure 127/70, pulse 75, temperature 36.3 ??C (97.3 ??F), temperature source Oral, resp. rate 20, height 1.778 m (5' 10 ), weight 86.6 kg (191 lb), SpO2 95%. Results Review {Vanishing Link Review Results :[id number] I have reviewed the latest lab and imaging results. Assessment & Plan Swelling of digit of hand #Cellulitis of the right hand -XR with diffuse soft tissue swelling. Notably right handed and uses for occupation. -Started on vancomycin and meropenem. Sutures from OSH removed in ED. Ortho consulted. PLAN -Continue vancomycin and meropenem. -Pending CT of the hand to determine additional management. -Pending operative plans, if any, per ortho. -Serial exams. #Elevated Creatinine -1.16 on arrival, unclear baseline. -Will defer IVF due to HF and not having diuretics in past day. Chronic medical conditions -HFpEF: Restarted home furosemide 40 mg, metoprolol succinate 100 mg, lisinopril 20 mg. Appears euvolemic. -HTN: continue lisinopril 20 mg daily -HLD: continue rosuvastatin 10 mg daily -DM, type II: last A1c 6% per patient, diet controlled. Declines SSI after discussing risks/benefits. Electronically Signed by: Umesh Stover MD - 02/20/2025 - 6:19 PM [1] Current Facility-Administered Medications Medication Dose Route Frequency Provider Last Rate Last Admin ALPRAZolam (Xanax) tablet 0.25 mg 0.25 mg Oral Nightly Umesh Stover MD [START ON 02/21/2025] furosemide (Lasix) tablet 40 mg 40 mg Oral Daily Umesh Stover MD iohexol (OMNIPaque) 300 MG/ML injection 100 mL 100 mL Intravenous Once in imaging Amari Wagner MD [START ON 02/21/2025] levothyroxine (Synthroid, Levoxyl) tablet 274 mcg 274 mcg Oral q AM Amaris Tate MD [START ON 02/21/2025] lisinopril tablet 20 mg 20 mg Oral Daily Umesh Stover MD [START ON 02/21/2025] meropenem (Merrem) 1 g in sodium chloride 0.9% 100 mL IVPB (vial adapter required) 1 g Intravenous q8h Umesh Stover MD [START ON 02/21/2025] metoprolol succinate XL (Toprol-XL) 24 hr tablet 100 mg 100 mg Oral Daily Umesh Stover MD rosuvastatin (Crestor) tablet 10 mg 10 mg Oral Nightly Umesh Stover MD vancomycin IVPB 1750 mg in 250 mL NS IVPB 20 mg/kg Intravenous Once Kenzie Burleson MD 167.4 mL/hrat 02/20/25 1715 1,750 mg at 02/20/25 1715 No current outpatient medications on file. Cosigned by TheDeisi MD at 02/22/2025 3:00 PM EDT Associated attestation - Deisi Tate MD - 02/22/2025 3:00 PM EDT I saw and evaluated the patient with the resident/fellow. I discussed the case with the resident/fellow and agree with the findings and plan as documented. I personally spent a total of 20 minutes on this encounter. This time includes face to face with patient, counseling, and discussion and/or coordination of care. * Consults - Conrad Chen MD - 02/20/2025 4:59 PM EDTAssociated Order(s): IP CONSULT TO ORTHOPAEDICS ORTHOPAEDIC SURGERY HAND CONSULT NOTE 02/20/25 CHIEF COMPLAINT AND REASON FOR VISIT Woodrow Boone is a right-hand dominant 64 y.o. patient presenting right long finger infection concerning for flexor tenosynovitis HISTORY OF PRESENT ILLNESS Woodrow Boone is a right-hand dominant 64 y.o. female with a past medical history of type 2 diabetes (last A1c 6.0 disease, hypertension, diastolic heart failure who presents with a complaint of right long finger laceration after a fall on 02/15. The patient states that she developed worsening swelling, erythema, and pain in the long finger. The patient states that she presented to an OSH where she received oral antibiotics ( Bactrim and clindamycin) and her wound was closed with sutures. Patient states that she has continued to take his antibiotics without improvement in symptoms. She continues to use her right hand with limitations in range of motion secondary to swelling. She denies any fevers but does state she has had subjective chills. PAST MEDICAL HISTORY Past Medical History[1] MEDICATIONS Current Medications[2] ALLERGIES Allergies[3] PAST SURGICAL HISTORY Surgical History[4] FAMILY HISTORY Family History[5] SOCIAL HISTORY Tobacco: Former smoking EtOH: denies Illicits: denies Lives: [place], [place] Employment: retired REVIEW OF SYSTEMS 14 point ROS negative unless otherwise stated per HPI. PHYSICAL EXAMINATION General Physical Exam Constitutional No acute distress Head Normocephalic and atraumatic Cardiovascular Peripheral perfusion intact Pulmonary/Chest Good respiratory effort, symmetric chest expansion, no respiratory difficulty appreciated Neurological Alert and oriented to person, place, and time Psychiatric Normal mood and affect, behavior and judgment FOCUSED HAND AND WRIST MUSCULOSKELETAL EXAM: Inspection: Erythema surrounding the right long finger. Sutures intact. Circumferential edema for involving in the entire long finger. No tenderness to palpation in the flexor tendon. Minimal tenderness to palpation in the distal digit. No pain with passive extension of the digit. Vascular/Capillary Refill (< 2 sec. D + Right: Radial pulse 2+ Middle <2 sec Sensory Examination Right: Thumb <8 mm, Index <8 mm, Middle <8 mm, ring <8 mm, small <8 mm Median nerve <8mm, Radial nerve <8mm, Ulnar nerve <8mm Motor Examination Right: Thumb: 5/5 FPL, 5/5 FPB, 5/5 EPL, 5/5 EPB Index: 5/5 FDS, 5/5 FDP, 5/5 EDC, 5/5 EIP Middle: 4/5 FDS, 4/5 FDP, 4/5 EDC Rin/5 FDS, 4/5 FDP, 4/5 EDC Small: 5/5 FDS, 5/5 FDP, 5/5 EDC, 5/5 EDM Wrist: 5/5 FCR, 5/5 FCU, 5/5 ECRL/B, 5/5 ECU LABS ESR: 60, CRP: 50.0, WBC: 12.58 IMAGING Imaging demonstrates right per digits swelling to the osseous fracture or dislocation ASSESSMENT AND PLAN Woodrow Boone is a 64 y.o. 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 Conrad Chen MD Orthopedic Surgery PGY-1 [facility] Personal Pager: [phone] Orthopaedic Trauma Service Pager: [phone] Orthopaedic Recon/Spine/Foot and Ankle Service Pager: [phone] [1] No past medical history on file. [2] Current Facility-Administered Medications: meropenem (Merrem) 2 g in sodium chloride 0.9 % 100 mL IVPB, 2 g, Intravenous, Once, Kenzie Burleson MD, Last Rate: 50 mL/hr at 02/20/25 162, 2 g at 02/20/25 162 vancomycin IVPB 1750 mg in 250 mL NS IVPB, 20 mg/kg, Intravenous, Once, Kenzie Burleson MD No current outpatient medications on file. [3] Allergies Allergen Reactions Penicillin G Anaphylaxis Erythromycin Unknown - Patient states they do not know rxn details Tolmetin Unknown - Patient states they do not know rxn details [4] No past surgical history on file. [5] No family history on file. Cosigned by Carlos Fofana MD at 02/21/2025 8:37 AM EDT Associated attestation - Carlos Fofana MD - 02/21/2025 8:37 AM EDT Signature only. * ED Procedure Note - Kenzie Burleson MD - 02/20/2025 3:03 PM EDTAssociated Order(s): POC Ultrasound - Bedside Procedure Reason: finger swelling POC Ultrasound - Bedside Performed by: Kenzie Burleson MD Authorized by: Amari Wagner MD Procedure specific details: Limited Soft Tissue Ultrasound A focused ultrasound of soft tissue was performed to evaluate for cellulitis, abscess, or foreign body. The ultrasound was performed with the following indications, as noted in the H&P: Soft tissue swelling and soft tissue redness Identified structures: Location: volar aspect of 3rd proximal digit on right Findings Exam of the above structures revealed the following findings: Fluid noted surrounding flexor tendon, without obvious discrete abscess Impression: Fluid surrounding flexor tendon concerning for flexor tenosynovitis however some amount of fluid also noted around adjacent digits The images were Saved in Qpath - E. The study was technically adequate. Comments: Kenzie Burleson MD Resident 02/21/252132 Cosigned by Amari Wagner MD at 02/24/2025 6:05 PM EDT Associated attestation - Amari Wagner MD - 02/24/2025 6:05 PM EDT I saw and evaluated the patient with the resident/fellow. I discussed the case with the resident/fellow and agree with the findings and plan as documented. I was present for the entirety of the procedure. * ED Provider Notes - Kenzie Burleson MD - 02/20/2025 3:03 PM EDT - HPI Chief Complaint Patient presents with ??? Hand Injury PIT NOTE Woodrow Boone is a 64 y.o. female who presents to the ED with Hand injury. Pt reports having a R middle finger x5 days [employer], and was transferred here from OSH with concern for infection. Pt states she had fallen and cut her finger, than handled an animal, and is concerned for infection. Pt reports chills, swelling and drainage. Pt endorses taking x2 types of oral anti-biotics, to little improvement. Pt reports anxiety for this hospital. Main ED note Agree with above. She has history of DM. She reports a mechanical fall onto the ground last - she reports her fingers bent backwards and the skin of the palmar surface of her 3rd digit split open. She was seen that day and had laceration repaired, the next day she started having significant swelling. This has progressed. She has had scant purulence draining from the lesion. Some chills but no fever. She has been taking clindamycin and bactrim without improvement. She was seen at OSHand sent here due to concern on exam and US for flexor tenosynovitis Patient History Past Medical History[1] Surgical History[2] Family History[3] Social History[4] Allergies: Allergies[5] Physical Exam ED Triage Vitals [02/20/25 1518] Temp Heart Rate Resp BP 36.3 ??C (97.3 ??F) 75 20 127/70 SpO2 Temp Source Heart Rate Source Patient Position 95 % Oral -- -- BP Location FiO2 (%) -- -- Physical Exam Vitals and nursing note reviewed. Constitutional: General: She is not in acute distress. Appearance: Normal appearance. HENT: Head: Normocephalic and atraumatic. Nose: No rhinorrhea. Mouth/Throat: Mouth: Mucous membranes are moist. Pharynx: Oropharynx is clear. Eyes: General: Right eye: No discharge. Left eye: No discharge. Conjunctiva/sclera: Conjunctivae normal. Pupils: Pupils are equal, round, and reactive to light. Pulmonary: Effort: Pulmonary effort is normal. No respiratory distress. Breath sounds: No stridor. Musculoskeletal: General: Normal range of motion. Cervical back: No rigidity. Skin: General: Skin is warm and dry. Comments: Erythema on palmar aspect of proximal 3rd digit extending slightly into palm without tenderness over the palm, tenderness noted over palmar aspect of 3rd digit proximally Swelling throughout digit No tenderness to dorsum of digit Held in slightly flexed position, with painful extension Neurological: Mental Status: She is alert and oriented to person, place, and time. Psychiatric: Mood and Affect: Mood normal. Behavior: Behavior normal. No data recorded ED Course & MDM - Assessment: 64 y.o. female presents to ED with complaint of finger swelling. It should be noted she has historyof diabetes which complicates management. She is in no distress on examination, nontoxic in appearance, afebrile. Her niece at bedside provides additional history of patient symptoms. I reviewed outside hospital records noting leukocytosis, elevated CRP. Differential Diagnosis: flexor tenosynovitis, abscess, cellulitis among others Bedside US with fluid noted about tendon sheath. On exam she does technically report all kanavel signs present, however finger minimally flexed with minimal painful extension. With swelling predominantly over area of laceration though minimal noted distally. In order to fully explore the differential diagnosis the following treatments and tests were ordered: ED Course as of 02/20/25 1805 Sun Feb 20, 2025 161 WBC(!): 12.58 Slight elevation [JM] 1618 Glucose(!): 144 [JM] 1618 Creatinine(!): 1.16 Unknown current baseline [] 1618 CRP, Plasma(!): 50.0 [] 1622 Xray hand on my interpretation without acute fracture, no apparent gas. I had an interactive discussion with orthopedic surgery on for hand [JM] 1800 Orthopedics does not have impression of flexor tenosynovitis, recommend CT of the hand and admission overnight for antibiotics and reassessment in the morning. The patient was placed in ED observation pending both of these. [JM] ED Course User Index [JM] Kenzie Burleson MD Clinical Impressions as of 02/20/25 180 Swelling of digit of hand Social Determinates of Health Risks (including Economic Stability, Education and level of understanding, Healthcare access and quality and concerning social factors): None identified on this visit Ultimately, this patient was Was admitted Date/Time: 02/20/2025/3:30 PM Entered by Atul Miranda acting as scribe for Dr. Major Serrato. Attending Attestation: The documentation was recorded by Atul Miranda, acting as scribe in my presence at the time of the encounter and accurately reflects the service I personally performed. ED Prescriptions None - [1] No past medical history on file. [2] No past surgical history on file. [3] No family history on file. [4] [5] Not on File Kenzie Burleson MD Resident 02/20/25 180 Cosigned by Amari Wagner MD at 02/20/2025 6:16 PM EDT Associated attestation - Amari Wagner MD - 02/20/2025 6:16 PM EDT I saw and evaluated the patient with the resident/fellow. I discussed the case with the resident/fellow and agree with the findings and plan as documented. * ED Triage Notes - Nataliia Adrian RN - 02/20/2025 3:03 PM EDT Right middle finger injury abut 5 days ago, was repaired, pt now concerned for infection * ED Triage Notes - Maria Luisa Lion RN - 02/20/2025 3:03 PM EDT Hand lac received from fall over a week ago. Now concerned for infection. States she's had chills, swelling and drainage. documented in this encounter Plan of Treatment Upcoming Encounters Date Type Department Care Team (Late st Contact Info) Description 04/28/2025 11:10 AM EDT Office Visit [facility] [address] [place] [address] Carlos Fofana MD [address] [place] [id number] Scheduled Procedures Name Priority Associated Diagnoses Date/Ti me TENOLYSIS, FLEXOR, PALM AND FINGER Open wound of left middle finger without damage to nail, sequela Scheduled Referrals Name Type Priority Associated Diagnoses Order Schedule Discharge Ambulatory referral to Hand Surgery Outpatient Referral Routine Swelling of digit of hand Ordered: 02/22/2025 documented as of this encounter Procedures Procedure Name Priority Date/Time Associated Diagnosis Comments CBC WITH AUTO DIFFERENTIAL Routine 02/22/2025 2:21 AM EDT C-REACTIVE PROTEIN, PLASMA STAT Add-on 02/22/2025 2:21 AM EDT BASIC METABOLIC PANEL, PLASMA Routine 02/22/2025 2:21 AM EDT BLOOD CULTURE (AEROBIC/ANAEROBIC SET) Routine 02/21/2025 10:51 AM EDT BLOOD CULTURE (AEROBIC/ANAEROBIC SET) Routine 02/21/2025 10:51 AM EDT CBC WITH AUTO DIFFERENTIAL STAT 02/21/2025 3:32 AM EDT C-REACTIVE PROTEIN, PLASMA STAT Add-on 02/21/2025 3:32 AM EDT COMPREHENSIVE METABOLIC PANEL, PLASMA STAT 02/21/2025 3:[address] HAND RIGHT W IV CONTRAST STAT 02/20/2025 7:31 PM EDT XR HAND RIGHT 3+ VIEWS STAT 4:14 PM EDT ED HIV 1/2 ANTIBODY/ANTIGEN SCREEN WITH REFLEX TO HIV I/II DIFFERENTIATION STAT 02/20/2025 3:44 PM EDT ED PROTOCOL HIV 1/2 ANTIBODY/ANTIGEN SCREEN W/REFLEX TO HIV 1/2 ANTIBODY DIFFERENTIATION STAT 02/20/2025 3:44 PM EDT HEPATITIS C ANTIBODY - ED W/REFLEX TO HCV QUANT PCR STAT 02/20/2025 3:44 PM EDT SEDIMENTATION RATE, AUTOMATED Add-On 02/20/2025 3:44 PM EDT CBC WITH AUTO DIFFERENTIAL STAT 02/20/2025 3:44 PM EDT C-REACTIVE PROTEIN, PLASMA STAT 02/20/2025 3:44 PM EDT COMPREHENSIVE METABOLIC PANEL, PLASMA STAT 02/20/2025 3:44 PM EDT [facility] ED POCUS PROCDOC Routine 02/20/2025 3:03 PM EDT documented in this encounter Results * (ABNORMAL) C-reactive protein (03/03/2025 12:42 PM EDT) [facility] CRP, Plasma 13.4(H) <=8.0 mg/L 03/03/2025 2:11 PM EDT [facility] Blood Venous blood specimen / Unknown Venipuncture / Unknown 03/03/2025 12:42 PM EDT 03/03/2025 12:42 PM EDT Narrative [facility] - 03/03/2025 2:11 PM EDT This CRP test is appropriate for assessment of infection, systemic inflammation and/or tissue injury. To assess cardiovascular disease risk order high sensitivity CRP (CRPH). us Codie Suarez MD LAB BLOOD ORDERABLES Final Res ult [facility] [address] [place] [address] * (ABNORMAL) CBC and Differential (03/03/2025 12:42 PM EDT) [facility] WBC Count 10.94(H) 3.70 - 10.30 10*3/uL LAB HEMATOLOGY METHOD 03/03/2025 2:00 PM EDT [facility] RBC Count 4.25 3.90 - 5.20 10*6/uL LAB HEMATOLOGY METHOD 03/03/2025 2:00 PM EDT [facility] HGB 12.8 11.2 - 15.7 g/dL LAB HEMATOLOGY METHOD 03/03/2025 2:00 PM EDT [facility] HCT 39.2 34.0 - 45.0 % LAB HEMATOLOGY METHOD 03/03/2025 2:00 PM EDT [facility] Platelet Count 467(H) 155 - 369 10*3/uL LAB HEMATOLOGY METHOD 03/03/2025 2:00 PM EDT [facility] MCV 92 79 - 98 fL LAB HEMATOLOGY METHOD 03/03/2025 2:00 PM EDT [facility] MCH 30.1 26.0 - 32.0 pg LAB HEMATOLOGY METHOD 03/03/2025 2:00 PM EDT [facility] MCHC 32.7 30.7 - 35.5 g/dL LAB HEMATOLOGY METHOD 03/03/2025 2:00 PM EDT [facility] RDW 15.1(H) 11.5 - 14.5 % LAB HEMATOLOGY METHOD 03/03/2025 2:00 PM EDT [facility] MPV 10.3 8.8 - 12.5 fL LAB HEMATOLOGY METHOD 03/03/2025 2:00 PM EDT [facility] nRBC 0.0 <=0.0 per 100 WBCs LAB HEMATOLOGY METHOD 03/03/2025 2:00 PM EDT [facility] Differential Type Automated LAB HEMATOLOGY METHOD 03/03/2025 2:00 PM EDT [facility] Neutrophils % 62 % LAB HEMATOLOGY METHOD 03/03/2025 2:00 PM EDT [facility] Lymphocytes % 27 % LAB HEMATOLOGY METHOD 03/03/2025 2:00 PM EDT [facility] Monocytes % 7 % LAB HEMATOLOGY METHOD 03/03/2025 2:00 PM EDT [facility] Eosinophils % 2 % LAB HEMATOLOGY METHOD 03/03/2025 2:00 PM EDT [facility] Basophils % 1 % LAB HEMATOLOGY METHOD 03/03/2025 2:00 PM EDT [facility] Immature Granulocytes % 1 % LAB HEMATOLOGY METHOD 03/03/2025 2:00 PM EDT [facility] Neutrophils Absolute 6.82(H) 1.60 - 6.10 10*3/uL LAB HEMATOLOGY METHOD 03/03/2025 2:00 PM EDT [facility] Lymphocytes Absolute 2.93 1.20 - 3.90 10*3/uL LAB HEMATOLOGY METHOD 03/03/2025 2:00 PM EDT [facility] Monocytes Absolute 0.79 0.30 - 0.90 10*3/uL LAB HEMATOLOGY METHOD 03/03/2025 2:00 PM EDT [facility] Eosinophils Absolute 0.23 0.00 - 0.50 10*3/uL LAB HEMATOLOGY METHOD 03/03/2025 2:00 PM EDT [facility] Basophils Absolute 0.11(H) 0.00 - 0.10 10*3/uL LAB HEMATOLOGY METHOD 03/03/2025 2:00 PM EDT [facility] Immature Granulocytes Absolute 0.06 0.00 - 0.06 10*3/uL LAB HEMATOLOGY METHOD 03/03/2025 2:00 PM EDT [facility] Blood Venous blood specimen / Unknown Venipuncture / Unknown 03/03/2025 12:42 PM EDT 03/03/2025 12:42 PM EDT [facility] - 03/03/2025 2:00 PM EDT Therapeutic decision making should be based on absolute values, rather than percentages. us Codie Suarez MD LAB BLOOD ORDERABLES Final Res ult Performing Organization Address [facility]/ZIP Co de Phone Number [facility] [address] [place] [address] * (ABNORMAL) C-reactive protein (02/22/2025 2:21 AM EDT) CRP, Plasma 34.5(H) <=8.0 mg/L 02/22/2025 6:48 AM EDT [facility] Blood Venous blood specimen / Unknown Venipuncture / Unknown 02/22/2025 2:21 AM EDT 02/22/2025 2:27 AM EDT Narrative [facility] - 02/22/2025 6:48 AM EDT This CRP test is appropriate for assessment of infection, systemic inflammation and/or tissue injury. To assess cardiovascular disease risk order high sensitivity CRP (CRPH). Codie Suarez MD LAB BLOOD ORDERABLES Final Res ult Performing Organization Address [facility] Co de Phone Number [facility] [address] [place] [address] * (ABNORMAL) Basic metabolic panel (02/22/2025 2:21 AM EDT) Pathologist [facility] Glucose, Plasma 116(H) 74 - 99 mg/dL 02/22/2025 2:58 AM EDT [facility] BUN, Plasma 30(H) 8 - 23 mg/dL 02/22/2025 2:58 AM EDT [facility] Creatinine, Plasma 0.92 0.60 - 1.10 mg/dL 02/22/2025 2:58 AM EDT [facility] BUN/Creatinine Ratio 33 02/22/2025 2:58 AM EDT [facility] Sodium, Plasma 136 136 - 145 mmol/L 02/22/2025 2:58 AM EDT [facility] Potassium, Plasma 4.5 3.6 - 4.9 mmol/L 02/22/2025 2:58 AM EDT [facility] Chloride, Plasma 102 97 - 107 mmol/L 02/22/2025 2:58 AM EDT [facility] CO2, Plasma 21(L) 22 - 29 mmol/L 02/22/2025 2:58 AM EDT [facility] Anion Gap 13 6 - 16 mmol/L 02/22/2025 2:58 AM EDT [facility] Total Calcium, Plasma 9.1 8.9 - 10.2 mg/dL 02/22/2025 2:58 AM EDT [facility] eGFRcr 69.2 mL/min/1.7 3m*2 02/22/2025 2:58 AM EDT [facility] Comment:Reported eGFRcr in m L/min/1.73m2 is based the CKD-EPI 2020 equation that does not use a race coefficient. Blood Venous blood specimen / Unknown Venipuncture / Unknown 02/22/2025 2:21 AM EDT 02/22/2025 2:27 AM EDT us Codie Suarez MD LAB BLOOD ORDERABLES Final Res ult [facility] [address] [place] [address] * (ABNORMAL) CBC and Differential (02/22/2025 2:21 AM EDT) WBC Count 14.81(H) 3.70 - 10.30 10*3/uL LAB HEMATOLOGY METHOD 02/22/2025 2:35 AM EDT [facility] RBC Count 4.07 3.90 - 5.20 10*6/uL LAB HEMATOLOGY METHOD 02/22/2025 2:35 AM EDT [facility] HGB 12.3 11.2 - 15.7 g/dL LAB HEMATOLOGY METHOD 02/22/2025 2:35 AM EDT [facility] HCT 36.8 34.0 - 45.0 % LAB HEMATOLOGY METHOD 02/22/2025 2:35 AM EDT [facility] Platelet Count 452(H) 155 - 369 10*3/uL LAB HEMATOLOGY METHOD 02/22/2025 2:35 AM EDT [facility] MCV 90 79 - 98 fL LAB HEMATOLOGY METHOD 02/22/2025 2:35 AM EDT [facility] MCH 30.2 26.0 - 32.0 pg LAB HEMATOLOGY METHOD 02/22/2025 2:35 AM EDT [facility] MCHC 33.4 30.7 - 35.5 g/dL LAB HEMATOLOGY METHOD 02/22/2025 2:35 AM EDT [facility] RDW 15.0(H) 11.5 - 14.5 % LAB HEMATOLOGY METHOD 02/22/2025 2:35 AM EDT [facility] MPV 10.8 8.8 - 12.5 fL LAB HEMATOLOGY METHOD 02/22/2025 2:35 AM EDT [facility] nRBC 0.0 <=0.0 per 100 WBCs LAB HEMATOLOGY METHOD 02/22/2025 2:35 AM EDT [facility] Differential Type Automated LAB HEMATOLOGY METHOD 02/22/2025 2:35 AM EDT [facility] Neutrophils % 67 % LAB HEMATOLOGY METHOD 02/22/2025 2:35 AM EDT [facility] Lymphocytes % 24 % LAB HEMATOLOGY METHOD 02/22/2025 2:35 AM EDT [facility] Monocytes % 6 % LAB HEMATOLOGY METHOD 02/22/2025 2:35 AM EDT [facility] Eosinophils % 1 % LAB HEMATOLOGY METHOD 02/22/2025 2:35 AM EDT [facility] Basophils % 1 % LAB HEMATOLOGY METHOD 02/22/2025 2:35 AM EDT [facility] Immature Granulocytes % 1 % LAB HEMATOLOGY METHOD 02/22/2025 2:35 AM EDT [facility] Neutrophils Absolute 10.06(H) 1.60 - 6.10 10*3/uL LAB HEMATOLOGY METHOD 02/22/2025 2:35 AM EDT [facility] Lymphocytes Absolute 3.62 1.20 - 3.90 10*3/uL LAB HEMATOLOGY METHOD 02/22/2025 2:35 AM EDT [facility] Monocytes Absolute 0.82 0.30 - 0.90 10*3/uL LAB HEMATOLOGY METHOD 02/22/2025 2:35 AM EDT [facility] Eosinophils Absolute 0.14 0.00 - 0.50 10*3/uL LAB HEMATOLOGY METHOD 02/22/2025 2:35 AM EDT [facility] Basophils Absolute 0.10 0.00 - 0.10 10*3/uL LAB HEMATOLOGY METHOD 02/22/2025 2:35 AM EDT [facility] Immature Granulocytes Absolute 0.07(H) 0.00 - 0.06 10*3/uL LAB HEMATOLOGY METHOD 02/22/2025 2:35 AM EDT [facility] Blood Venous blood specimen / Unknown Venipuncture / Unknown 02/22/2025 2:21 AM EDT 02/22/2025 2:27 AM EDT [facility] - 02/22/2025 2:35 AM EDT Therapeutic decision making should be based on absolute values, rather than percentages. Codie Suarez MD LAB BLOOD ORDERABLES Final Res ult Performing Organization Address City/[facility]/[place] [address] * Blood Culture (Aerobic/Anaerobet Set) (02/21/2025 10:51 AM EDT) Culture No growth at day 5 02/26/2025 11:17 AM EDT [facility] Blood Structure of right hand / Unknown Venipuncture / Unknown 02/21/2025 10:51 AM EDT 02/21/2025 11:09 AM EDT [facility] - 02/26/2025 11:17 AM EDT Low blood volume submitted, results may be compromised us Codie Suarez MD LAB MICROBIOLOGY - GENERAL ORD ERABLES Final Result Performing Organization Address City/[facility]/ZIP Co de Phone Number [facility] [address] [place] [phone] * Blood Culture (Aerobic/Anaerobet Set) (02/21/2025 10:51 AM EDT) Culture No growth at day 5 02/26/2025 12:01 PM EDT [facility] Blood Structure of antecubital vein / Unknown Venipuncture / Unknown 02/21/2025 10:51 AM EDT 02/21/2025 11:09 AM EDT [facility] - 02/26/2025 12:01 PM EDT Low blood volume submitted, results may be compromised us Codie Suarez MD LAB MICROBIOLOGY - GENERAL ORD ERABLES Final Result Performing Organization Address [facility]/ZIP Co de Phone Number [facility] [address] [place] [address] * (ABNORMAL) C-reactive protein (02/21/2025 3:32 AM EDT) CRP, Plasma 36.0(H) <=8.0 mg/L 02/21/2025 6:01 AM EDT [facility] Blood Venous blood specimen / Unknown Venipuncture / Unknown 02/21/2025 3:32 AM EDT 02/21/2025 5:30 AM EDT Narrative [facility] - 02/21/2025 6:01 AM EDT This CRP test is appropriate for assessment of infection, systemic inflammation and/or tissue injury. To assess cardiovascular disease risk order high sensitivity CRP (CRPH). us Carlos Fofana MD LAB BLOOD ORDERABLES Final R esult Performing Organization Address City/[facility]/ZIP Co de Phone Number [facility] [address] [place] [address] * (ABNORMAL) Comprehensive Metabolic Panel, Plasma (02/21/2025 3:32 AM EDT) Glucose, Plasma 83 74 - 99 mg/dL 02/21/2025 6:01 AM EDT [facility] BUN, Plasma 27(H) 8 - 23 mg/dL 02/21/2025 6:01 AM EDT [facility] Creatinine, Plasma 0.89 0.60 - 1.10 mg/dL 02/21/2025 6:01 AM EDT [facility] BUN/Creatinine Ratio 30 02/21/2025 6:01 AM EDT [facility] Sodium, Plasma 140 136 - 145 mmol/L 02/21/2025 6:01 AM EDT [facility] Potassium, Plasma 4.7 3.6 - 4.9 mmol/L 02/21/2025 6:01 AM EDT [facility] Chloride, Plasma 107 97 - 107 mmol/L 02/21/2025 6:01 AM EDT [facility] CO2, Plasma 21(L) 22 - 29 mmol/L 02/21/2025 6:01 AM EDT [facility] [facility] Anion Gap 12 6 - 16 mmol/L 02/21/2025 6:01 AM EDT [facility] Total Calcium, Plasma 9.2 8.9 - 10.2 mg/dL 02/21/2025 6:01 AM EDT [facility] Total Protein 6.6 6.3 - 7.9 g/dL 02/21/2025 6:01 AM EDT [facility] Albumin, Plasma 3.5 3.5 - 5.2 g/dL 02/21/2025 6:01 AM EDT [facility] AST, Plasma 23 10 - 35 U/L 02/21/2025 6:01 AM EDT [facility] ALT, Plasma 42(H) 10 - 35 U/L 02/21/2025 6:01 AM EDT [facility] Alkaline Phosphatase, Plasma 137 46 - 142 U/L 02/21/2025 6:01 AM EDT [facility] Total Bilirubin, Plasma 0.3 0.2 - 1.1 mg/dL 02/21/2025 6:01 AM EDT [facility] eGFRcr 72.1 mL/min/1.7 3m*2 02/21/2025 6:01 AM EDT [facility] Comment:Reported eGFRcr in m L/min/1.73m2 is based the CKD-EPI 2020 equation that does not use a race coefficient. Blood Venous blood specimen / Unknown Venipuncture / Unknown 02/21/2025 3:32 AM EDT 02/21/2025 5:30 AM EDT [address] LAB BLOOD ORDERABLES Final Resul t [facility] [address] [place] [address] * (ABNORMAL) CBC and Differential (02/21/2025 3:32 AM EDT) WBC Count 14.59(H) 3.70 - 10.30 10*3/uL LAB HEMATOLOGY METHOD 02/21/2025 5:16 AM EDT [facility] RBC Count 3.89(L) 3.90 - 5.20 10*6/uL LAB HEMATOLOGY METHOD 02/21/2025 5:16 AM EDT [facility] HGB 11.7 11.2 - 15.7 g/dL LAB HEMATOLOGY METHOD 02/21/2025 5:16 AM EDT [facility] HCT 34.7 34.0 - 45.0 % LAB HEMATOLOGY METHOD 02/21/2025 5:16 AM EDT [facility] Platelet Count 404(H) 155 - 369 10*3/uL LAB HEMATOLOGY METHOD 02/21/2025 5:16 AM EDT [facility] MCV 89 79 - 98 fL LAB HEMATOLOGY METHOD 02/21/2025 5:16 AM EDT [facility] MCH 30.1 26.0 - 32.0 pg LAB HEMATOLOGY METHOD 02/21/2025 5:16 AM EDT [facility] MCHC 33.7 30.7 - 35.5 g/dL LAB HEMATOLOGY METHOD 02/21/2025 5:16 AM EDT [facility] RDW 14.8(H) 11.5 - 14.5 % LAB HEMATOLOGY METHOD 02/21/2025 5:16 AM EDT [facility] MPV 11.0 8.8 - 12.5 fL LAB HEMATOLOGY METHOD 02/21/2025 5:16 AM EDT [facility] nRBC 0.0 <=0.0 per 100 WBCs LAB HEMATOLOGY METHOD 02/21/2025 5:16 AM EDT [facility] Differential Type Automated LAB HEMATOLOGY METHOD 02/21/2025 5:16 AM EDT [facility] Neutrophils % 70 % LAB HEMATOLOGY METHOD 02/21/2025 5:16 AM EDT [facility] Lymphocytes % 20 % LAB HEMATOLOGY METHOD 02/21/2025 5:16 AM EDT [facility] Monocytes % 7 % LAB HEMATOLOGY METHOD 02/21/2025 5:16 AM EDT [facility] Eosinophils % 2 % LAB HEMATOLOGY METHOD 02/21/2025 5:16 AM EDT [facility] Basophils % 1 % LAB HEMATOLOGY METHOD 02/21/2025 5:16 AM EDT [facility] Immature Granulocytes % 0 % LAB HEMATOLOGY METHOD 02/21/2025 5:16 AM EDT [facility] Neutrophils Absolute 10.29(H) 1.60 - 6.10 10*3/uL LAB HEMATOLOGY METHOD 02/21/2025 5:16 AM EDT [facility] Lymphocytes Absolute 2.94 1.20 - 3.90 10*3/uL LAB HEMATOLOGY METHOD 02/21/2025 5:16 AM EDT [facility] Monocytes Absolute 0.96(H) 0.30 - 0.90 10*3/uL LAB HEMATOLOGY METHOD 02/21/2025 5:16 AM EDT [facility] Eosinophils Absolute 0.26 0.00 - 0.50 10*3/uL LAB HEMATOLOGY METHOD 02/21/2025 5:16 AM EDT [facility] Basophils Absolute 0.08 0.00 - 0.10 10*3/uL LAB HEMATOLOGY METHOD 02/21/2025 5:16 AM EDT [facility] Immature Granulocytes Absolute 0.06 0.00 - 0.06 10*3/uL LAB HEMATOLOGY METHOD 02/21/2025 5:16 AM EDT [facility] Blood Venous blood specimen / Unknown Venipuncture / Unknown 02/21/2025 3:32 AM EDT 02/21/2025 5:13 AM EDT Narrative [facility] - 02/21/2025 5:16 AM EDT Therapeutic decision making should be based on absolute values, rather than percentages. us [address] LAB BLOOD ORDERABLES Final Resul t [facility] [address] [place] [address] * CT Hand Right w IV Contrast (02/20/2025 7:31 PM EDT) Anatomical Region Laterality Modality Upper Extremities, Hand Right Computed Tomography Impressions 02/20/2025 9:01 PM EDT Findings are compatible with pyogenic flexor synovitis of the third digit. CRITICAL RESULT: No. COMMUNICATION: Per this written report. Preliminary report signed by Jaren Cali MD on 02/20/2025 8:16 PM By electronically signing this report, I, the attending physician, attest that I have personally reviewed the images/data for the above examination(s) and agree with the final edited report. Drafted by Jaren Cali MD on 02/20/2025 8:14 PM Final report signed by Shelley Lopez MD on 02/20/2025 9:01 PM Narrative 02/20/2025 9:01 PM EDT CLINICAL INDICATION: Concern for FTS TECHNIQUE: Multiple axial CT images were obtained through the right hand following administration of IV contrast, Omnipaque 300, [address] data set was used to generate high resolution reformatted images in the coronal and sagittal planes to facilitate diagnostic accuracy and treatment planning. Total DLP (Dose-Length Product): 136.30 mGy.cm. Please note: The reported value represents the total of one or more individual components during the CT acquisition on this date and at this time, and as such, the same value may appear in more than one CT report depending on the interpreting/reporting physicians. COMPARISON: Same day radiograph FINDINGS: No fracture, dislocation or subluxation. No cortical disruption or erosions to suggest osteomyelitis. There is diffuse soft tissue swelling of the third digit. There is milder soft tissue swelling of the hand. There is peripherally enhancing fluid encasing the flexor tendon of the third digit. A small portion of this fluid appears to track anteriorly to the skin surface at approximately the region of the volar DIP joint. Adjacent soft tissue stranding is also noted. Carpal rows are intact. Scapholunate interval is normal. Procedure Note Shelley Lopez MD - 02/20/2025 CLINICAL INDICATION: Concern for FTS TECHNIQUE: Multiple axial CT images were obtained through the right hand followingadministration of IV contrast, Omnipaque 300, [address] dataset was used to generate high resolution reformatted images in the coronaland sagittal planes to facilitate diagnostic accuracy and treatmentplanning. Total DLP (Dose-Length Product): 136.30 mGy.cm. Please note: The reportedvalue represents the total of one or more individual components during theCT acquisition on this date and at this time, and as such, the same valuemay appear in more than one CT report depending on theinterpreting/reporting physicians. COMPARISON: Same day radiograph FINDINGS: No fracture, dislocation or subluxation. No cortical disruption orerosions to suggest osteomyelitis. There is diffuse soft tissue swellingof the third digit. There is milder soft tissue swelling of the hand.There is peripherally enhancing fluid encasing the flexor tendon of thethird digit. A small portion of this fluid appears to track anteriorly tothe skin surface at approximately the region of the volar DIP joint.Adjacent soft tissue stranding is also noted. Carpal rows are intact.Scapholunate interval is normal. IMPRESSION: Findings are compatible with pyogenic flexor synovitis of the thirddigit. CRITICAL RESULT: No. COMMUNICATION: Per this written report. Preliminary report signed by Jaren Cali MD on 02/20/2025 8:16 PM By electronically signing this report, I, the attending physician, attestthat I have personally reviewed the images/data for the aboveexamination(s) and agree with the final edited report. Drafted by Jaren Cali MD on 02/20/2025 8:14 PM Final report signed by Shelley Lopez MD on 02/20/2025 9:01 PM Carlos Fofana MD IMG CT PROCEDURES Final Resu lt * XR Hand Right 3+ Views (02/20/2025 4:14 PM EDT) Anatomical Region Laterality Modality Upper Extremities, Hand Right Digital Radiography Impressions 02/20/2025 4:23 PM EDT Diffuse soft tissue swelling of the third digit without gas or radiopaque foreign body. Focused ultrasound may be recommended to exclude fluid collections. CRITICAL RESULT: No. COMMUNICATION: Per this written report. Drafted by Lashawn Smith MD on 02/20/2025 4:20 PM Final report signed by Lashawn Smith MD on 02/20/2025 4:23 PM Narrative 02/20/2025 4:23 PM EDT CLINICAL INDICATION: flexor tenosynovitis of 3rd digit TECHNIQUE: XR HAND RIGHT 3+ VIEWS COMPARISON: None. FINDINGS: No acute fracture or dislocation. Incidental erosions at the third metacarpal head. Diffuse soft tissue swelling of the third digit without obvious masses. No gas or radiopaque foreign body. Procedure Note Lashawn Smith MD - 02/20/2025 CLINICAL INDICATION: flexor tenosynovitis of 3rd digit TECHNIQUE: XR HAND RIGHT 3+ VIEWS COMPARISON: None. FINDINGS: No acute fracture or dislocation. Incidental erosions at the thirdmetacarpal head. Diffuse soft tissue swelling of the third digit withoutobvious masses. No gas or radiopaque foreign body. IMPRESSION: Diffuse soft tissue swelling of the third digit without gas or radiopaqueforeign body. Focused ultrasound may be recommended to exclude fluidcollections. CRITICAL RESULT: No. COMMUNICATION: Per this written report. Drafted by Lashawn Smith MD on 02/20/2025 4:20 PM Final report signed by Lashawn Smith MD on 02/20/2025 4:23 PM Amari Wagner MD IMG XR PROCEDURES Final Resul t * (ABNORMAL) Sedimentation Rate, Automated (02/20/2025 3:44 PM EDT) Sedimentation Rate 60(H) <30 mm/hr 2024 5:10 PM EDT [facility] Blood Venous blood specimen / Unknown Venipuncture / Unknown 02/20/2025 3:44 PM EDT 02/20/2025 3:51 PM EDT Carlos Fofana MD LAB BLOOD ORDERABLES Final R esult [facility] [address] [place] [address] * ED HIV 1/2 Antibody/Antigen Screen w/Reflex to HIV 1/2 Differentiation (02/20/2025 3:44 PM EDT) HIV 1 & 2 Antibody/Antigen Screen Non Reactive Non Reactive 02/20/2025 4:44 PM EDT [facility] Comment:Screening for HIV 1 & 2 antibodies, and P24 antigen is NONREACTIVE. No confirmatory testing is required. Blood Venous blood specimen / Unknown Venipuncture / Unknown 02/20/2025 3:44 PM EDT 02/20/2025 4:04 PM EDT Major Serrato MD LAB BLOOD ORDERABLES Final Result Performing Organization Address City/[facility]/ZIP Co de Phone Number [facility] [address] [place] [address] * Hepatitis C Antibody - ED (02/20/2025 3:44 PM EDT) [facility] Hepatitis C Antibody Negative Negative 02/20/2025 4:44 PM EDT [facility] Blood Venous blood specimen / Unknown Venipuncture / Unknown 02/20/2025 3:44 PM EDT 02/20/2025 4:04 PM EDT Major Serrato MD LAB BLOOD ORDERABLES Final Result Performing Organization Address [facility] Co de Phone Number [facility] [address] [place] [address] * (ABNORMAL) C-Reactive protein (02/20/2025 3:44 PM EDT) [facility] CRP, Plasma 50.0(H) <=8.0 mg/L 02/20/2025 4:16 PM EDT [facility] Blood Venous blood specimen / Unknown Venipuncture / Unknown 02/20/2025 3:44 PM EDT 02/20/2025 3:51 PM EDT Narrative [facility] - 02/20/2025 4:16 PM EDT This CRP test is appropriate for assessment of infection, systemic inflammation and/or tissue injury. To assess cardiovascular disease risk order high sensitivity CRP (CRPH). Major Serrato MD LAB BLOOD ORDERABLES Final Result Performing Organization Address [facility]/ZIP Co de Phone Number [facility] [address] [place] [address] * (ABNORMAL) CBC w/diff (02/20/2025 3:44 PM EDT) [facility] WBC Count 12.58(H) 3.70 - 10.30 10*3/uL LAB HEMATOLOGY METHOD 02/20/2025 3:54 PM EDT [facility] RBC Count 4.21 3.90 - 5.20 10*6/uL LAB HEMATOLOGY METHOD 02/20/2025 3:54 PM EDT [facility] HGB 12.7 11.2 - 15.7 g/dL LAB HEMATOLOGY METHOD 02/20/2025 3:54 PM EDT [facility] HCT 38.2 34.0 - 45.0 % LAB HEMATOLOGY METHOD 02/20/2025 3:54 PM EDT [facility] Platelet Count 427(H) 155 - 369 10*3/uL LAB HEMATOLOGY METHOD 02/20/2025 3:54 PM EDT [facility] MCV 91 79 - 98 fL LAB HEMATOLOGY METHOD 02/20/2025 3:54 PM EDT [facility] MCH 30.2 26.0 - 32.0 pg LAB HEMATOLOGY METHOD 02/20/2025 3:54 PM EDT [facility] MCHC 33.2 30.7 - 35.5 g/dL LAB HEMATOLOGY METHOD 02/20/2025 3:54 PM EDT [facility] RDW 14.7(H) 11.5 - 14.5 % LAB HEMATOLOGY METHOD 02/20/2025 3:54 PM EDT [facility] MPV 10.9 8.8 - 12.5 fL LAB HEMATOLOGY METHOD 02/20/2025 3:54 PM EDT [facility] nRBC 0.0 <=0.0 per 100 WBCs LAB HEMATOLOGY METHOD 02/20/2025 3:54 PM EDT [facility] Differential Type Automated LAB HEMATOLOGY METHOD 02/20/2025 3:54 PM EDT [facility] Neutrophils % 74 % LAB HEMATOLOGY METHOD 02/20/2025 3:54 PM EDT [facility] Lymphocytes % 19 % LAB HEMATOLOGY METHOD 02/20/2025 3:54 PM EDT [facility] Monocytes % 4 % LAB HEMATOLOGY METHOD 02/20/2025 3:54 PM EDT [facility] Eosinophils % 2 % LAB HEMATOLOGY METHOD 02/20/2025 3:54 PM EDT [facility] Basophils % 1 % LAB HEMATOLOGY METHOD 02/20/2025 3:54 PM EDT [facility] Immature Granulocytes % 0 % LAB HEMATOLOGY METHOD 02/20/2025 3:54 PM EDT [facility] Neutrophils Absolute 9.33(H) 1.60 - 6.10 10*3/uL LAB HEMATOLOGY METHOD 02/20/2025 3:54 PM EDT [facility] Lymphocytes Absolute 2.41 1.20 - 3.90 10*3/uL LAB HEMATOLOGY METHOD 02/20/2025 3:54 PM EDT [facility] Monocytes Absolute 0.52 0.30 - 0.90 10*3/uL LAB HEMATOLOGY METHOD 02/20/2025 3:54 PM EDT [facility] Eosinophils Absolute 0.21 0.00 - 0.50 10*3/uL LAB HEMATOLOGY METHOD 02/20/2025 3:54 PM EDT [facility] Basophils Absolute 0.06 0.00 - 0.10 10*3/uL LAB HEMATOLOGY METHOD 02/20/2025 3:54 PM EDT [facility] Immature Granulocytes Absolute 0.05 0.00 - 0.06 10*3/uL LAB HEMATOLOGY METHOD 02/20/2025 3:54 PM EDT [facility] Blood Venous blood specimen / Unknown Venipuncture / Unknown 02/20/2025 3:44 PM EDT 02/20/2025 3:51 PM EDT Narrative [facility] - 02/20/2025 3:54 PM EDT Therapeutic decision making should be based on absolute values, rather than percentages. us Major Serrato MD LAB BLOOD ORDERABLES Final Result [facility] [address] [place] [address] * (ABNORMAL) CMP (02/20/2025 3:44 PM EDT) Glucose, Plasma 144(H) 74 - 99 mg/dL 02/20/2025 4:16 PM EDT [facility] BUN, Plasma 34(H) 8 - 23 mg/dL 02/20/2025 4:16 PM EDT [facility] Creatinine, Plasma 1.16(H) 0.60 - 1.10 mg/dL 02/20/2025 4:16 PM EDT [facility] BUN/Creatinine Ratio 29 02/20/2025 4:16 PM EDT [facility] Sodium, Plasma 138 136 - 145 mmol/L 02/20/2025 4:16 PM EDT [facility] Potassium, Plasma 4.3 3.6 - 4.9 mmol/L 02/20/2025 4:16 PM EDT [facility] Chloride, Plasma 103 97 - 107 mmol/L 02/20/2025 4:16 PM EDT [facility] CO2, Plasma 23 22 - 29 mmol/L 02/20/2025 4:16 PM EDT [facility] Anion Gap 12 6 - 16 mmol/L 02/20/2025 4:16 PM EDT [facility] Total Calcium, Plasma 9.2 8.9 - 10.2 mg/dL 02/20/2025 4:16 PM EDT [facility] Total Protein 7.1 6.3 - 7.9 g/dL 02/20/2025 4:16 PM EDT [facility] Albumin, Plasma 3.8 3.5 - 5.2 g/dL 02/20/2025 4:16 PM EDT [facility] AST, Plasma 23 10 - 35 U/L 02/20/2025 4:16 PM EDT [facility] ALT, Plasma 47(H) 10 - 35 U/L 02/20/2025 4:16 PM EDT [facility] Alkaline Phosphatase, Plasma 153(H) 46 - 142 U/L 02/20/2025 4:16 PM EDT [facility] Total Bilirubin, Plasma 0.2 0.2 - 1.1 mg/dL 02/20/2025 4:16 PM EDT [facility] eGFRcr 52.4 mL/min/1.7 3m*2 02/20/2025 4:16 PM EDT [facility] Comment:Reported eGFRcr in m L/min/1.73m2 is based the CKD-EPI 2020 equation that does not use a race coefficient. Blood Venous blood specimen / Unknown Venipuncture / Unknown 02/20/2025 3:44 PM EDT 02/20/2025 3:51 PM EDT Major Serrato MD LAB BLOOD ORDERABLES Final Result [facility] [address] [place] [address] * [facility] ED POCUS PROCDOC (02/20/2025 3:03 PM EDT) Narrative Amari Wagner MD - 02/20/2025 3:03 PM EDT Amari Wagner MD 02/24/2025 6:05 PM POC Ultrasound - Bedside Performed by: Kenzie Burleson MD Authorized by: Amari Wagner MD Procedure specific details: Limited Soft Tissue Ultrasound A focused ultrasound of soft tissue was performed to evaluate for cellulitis, abscess, or foreign body. The ultrasound was performed with the following indications, as noted in the H&P: Soft tissue swelling and soft tissue redness Identified structures: Location: volar aspect of 3rd proximal digit on right Findings Exam of the above structures revealed the following findings: Fluid noted surrounding flexor tendon, without obvious discrete abscess Impression: Fluid surrounding flexor tendon concerning for flexor tenosynovitis however some amount of fluid also noted around adjacent digits The images were Saved in [employer]. The study was technically adequate. Comments: us Amari Wagner MD IN CLINIC/BEDSIDE ORDERABLES Final Result documented in this encounter Visit Diagnoses Diagnosis Flexor tenosynovitis of finger- Primary Other tenosynovitis of hand and wrist Swelling of digit of hand Flexor tenosynovitis of finger Other tenosynovitis of hand and wrist Cellulitis of right middle finger Swelling of digit of hand Cellulitis of middle finger, right documented in this encounter Admitting Diagnoses Diagnosis Flexor tenosynovitis of finger Other tenosynovitis of hand and wrist Swelling of digit of hand documented in this encounter Administered Medications Inactive Administered Medications - up to 3 most recent administrations Medication Order MAR Action Action Date Dose Rate Site ALPRAZolam (Xanax) tablet 0.25 mg 0.25 mg, Oral, Nightly, First dose on 02/20/25 at 2100, Until Discontinued, Routine Given 02/21/2025 8:52 PM EDT 0.25 mg Given 02/20/2025 10:53 PM EDT 0.25 mg diclofenac (Voltaren) 1 % topical gel 1 g 1 g, Topical, 4 times daily PRN, Starting on Fri02/21/25 at 1939, Until Fri02/22/25 at 1541, Routine, joint pain Given 02/21/2025 8:25 PM EDT 1 g enoxaparin (Lovenox) syringe 30 mg 30 mg, Subcutaneous, 2 times daily, First dose on Fri02/21/25 at 0910, Until Discontinued, Routine Given 02/22/2025 8:58 AM EDT 30 mg Left Lower Abdomen Given 02/21/2025 8:25 PM EDT 30 mg Ri ght Lower Abdomen Given 02/21/2025 10:05 AM EDT 30 mg L eft Lower Abdomen furosemide (Lasix) tablet 40 mg 40 mg, Oral, Daily, First dose on Fri02/21/25 at 0900, Until Discontinued, Routine Given 02/22/2025 8:58 AM EDT 40 mg Given 02/21/2025 8:14 AM EDT 40 mg iohexol (OMNIPaque) 300 MG/ML injection 100 mL 100 mL, Intravenous, Once in imaging, 1 dose, Starting on Fri02/20/25 at 1723, Until Fri02/20/25 at 1922, Routine, Imaging Protocol Orders Given 02/20/2025 7:22 PM EDT 100 mL levothyroxine (Synthroid, Levoxyl) tablet 274 mcg 274 mcg, Oral, Every morning, First dose on Fri02/21/25 at 0600, Until Discontinued, Routine Given 02/22/2025 5:23 AM EDT 274 mcg Given 02/21/2025 5:17 AM EDT 274 mcg lisinopril tablet 20 mg 20 mg, Oral, Daily, First dose on Fri02/21/25 at 0900, Until Discontinued, STAT Given 02/22/2025 8:58 AM EDT 20 mg Given 02/21/2025 8:14 AM EDT 20 mg melatonin tablet 6 mg 6 mg, Oral, Nightly PRN, Starting on Fri02/21/25 at 0430, Until Fri02/22/25 at 1541, Routine, sleep Given 02/21/2025 5:17 AM EDT 6 mg meropenem (Merrem) 2 g in sodium chloride 0.9 % 100 mL IVPB 2 g, Intravenous, Once, 1 dose, On 02/20/25 at 1605, at 50 mL/hr, Administer over 3 Hours, STAT New Bag 02/20/2025 4:27 PM EDT 2 g 5 0 mL/hr meropenem (Merrem) 2 g in sodium chloride 0.9 % 100 mL IVPB 2 g, Intravenous, Every 8 hours, First dose on Fri02/22/25 at 0000, Until Discontinued, at 50 mL/hr, Administer over 3 Hours, STAT New Bag 02/22/2025 10:22 AM EDT 2 g 50 mL/hr New Bag 02/21/2025 11:42 PM EDT 2 g 50 mL/hr metoprolol succinate XL (Toprol-XL) 24 hr tablet 100 mg 100 mg, Oral, Daily, First dose on Fri02/21/25 at 0900, Until Discontinued, Routine Given 02/22/2025 8:58 AM EDT 100 mg Given 02/21/2025 8:14 AM EDT 100 mg rosuvastatin (Crestor) tablet 10 mg 10 mg, Oral, Nightly, First dose on Fri02/20/25 at 2100, Until Discontinued, Routine Given 02/21/2025 8:25 PM EDT 10 mg Given 02/20/2025 8:51 PM EDT 10 mg senna (Senokot) tablet 17.2 mg 17.2 mg (2 tablet), Oral, Nightly, First dose on Fri02/21/25 at 2100, Until Discontinued, Routine sodium chloride 0.9 % flush 10 mL 10 mL, Intravenous, Every 12 hours, First dose on Fri02/21/25 at 0910, Until Discontinued, Routine Given 02/21/2025 8:28 PM EDT 10 mL Given 02/21/2025 9:21 AM EDT 10 mL sodium chloride 0.9 % flush 10 mL 10 mL, Intravenous, As needed, Starting on Fri02/21/25 at 0901, Until Fri02/22/25 at 1541, Routine, line care Vancomycin HCl in NaCl (Vancocin) IVPB 1,000 mg 1,000 mg, Intravenous, Every 12 hours, First dose on Fri02/21/25 at 0730, Until Discontinued, at 250 mL/hr, Routine Given 02/22/2025 8:58 AM EDT 1,000 mg 250 mL/hr Given 02/21/2025 8:25 PM EDT 1,000 mg 250 mL/hr Given 02/21/2025 8:15 AM EDT 1,000 mg 250 mL/hr vancomycin IVPB 1750 mg in 250 mL NS IVPB 1,750 mg (rounded from 1,732 mg = 20 mg/kg 86.6 kg), Intravenous, Once, 1 dose, On Fri02/20/25 at 1615, at 167.4 mL/hr, STAT New Bag 02/20/2025 5:15 PM EDT 1,750 mg 167.4 mL/hr documented in this encounter Active and Recently Administered Medications Times are shown in EDT. Scheduled Medication Order 02/20/2025 02/21/2025 02/22/2025 ALPRAZolam (Xanax) tablet 0.25 mg 0.25 mg, Oral, Nightly, First dose on Fri02/20/25 at 2100, Until Discontinued, Routine 2253 (Given - Provider: Muna Abraham RN) 2051 (Given - Provider: Juwan Blackburn) enoxaparin (Lovenox) syringe 30 mg 30 mg, Subcutaneous, 2 times daily, First dose on Fri02/21/25 at 0910, Until Discontinued, Routine 1005 (Given - Provider: Sundeep Gregory RN)2024 (Given - Provider: Juwan Blackburn) 0858 (Given - Provider: Joselo Tracy, LEONORA) furosemide (Lasix) tablet 40 mg 40 mg, Oral, Daily, First dose on Fri02/21/25 at 0900, Until Discontinued, Routine 0814 (Given - Provider: Sundeep Gregory, LEONORA) 0858 (Given - Provider: Joselo Tracy, LEONORA) iohexol (OMNIPaque) 300 MG/ML injection 100 mL (COMPLETED) 100 mL, Intravenous, Once in imaging, 1 dose, Starting on 02/20/25 at 1723, Until 02/20/25 at 1922, Routine, Imaging Protocol Orders 1921 (Given - Provider: Bernadette Dumont) levothyroxine (Synthroid, Levoxyl) tablet 274 mcg 274 mcg, Oral, Every morning, First dose on Fri02/21/25 at 0600, Until Discontinued, Routine 0517 (Given - Provider: Muna Abraham RN) 0523 (Given - Provider: Juwan Blackburn) lisinopril tablet 20 mg 20 mg, Oral, Daily, First dose on Fri02/21/25 at 0900, Until Discontinued, STAT 0814 (Given - Provider: Sundeep Gregory RN) 0858 (Given - Provider: Joselo Tracy RN) meropenem (Merrem) 2 g in sodium chloride 0.9 % 100 mL IVPB (COMPLETED) 2 g, Intravenous, Once, 1 dose, On Fri02/20/25 at 1605, at 50 mL/hr, Administer over 3 Hours, STAT 1627 (New Bag - Provider: Hetal Mittal, LEONORA)1715 (Stopped - Provider: Hetal Mittal RN) meropenem (Merrem) 2 g in sodium chloride 0.9 % 100 mL IVPB 2 g, Intravenous, Every 8 hours, First dose on Fri02/22/25 at 0000, Until Discontinued, at 50 mL/hr, Administer over 3 Hours, STAT 2342 (New Bag - Provider: Juwan Blackburn) 1022 (New Bag - Provider: Joselo Tracy RN) metoprolol succinate XL (Toprol-XL) 24 hr tablet 100 mg 100 mg, Oral, Daily, First dose on Fri02/21/25 at 0900, Until Discontinued, Routine 0814 (Given - Provider: Sundeep Gregory RN) 0858 (Given - Provider: Joselo Tracy RN) rosuvastatin (Crestor) tablet 10 mg 10 mg, Oral, Nightly, First dose on Fri02/20/25 at 2100, Until Discontinued, Routine 2050 (Given - Provider: Trupti Santamaria) 2024 (Given - Provider: Juwan Blackburn) senna (Senokot) tablet 17.2 mg 17.2 mg (2 tablet), Oral, Nightly, First dose on Fri02/21/25 at 2100, Until Discontinued, Routine 2024 (Not Given - Provider: Juwan Blackburn - Reason: Patient/family refused) sodium chloride 0.9 % flush 10 mL(Linked Group 1) 10 mL, Intravenous, Every 12 hours, First dose on Fri02/21/25 at 0910, Until Discontinued, Routine 0921 (Given - Provider: Sundeep Gregory RN)2027 (Given - Provider: Jwuan Blackburn) 0911 (Canceled Entry - Provider: Joselo Tracy, LEONORA) Vancomycin HCl in NaCl (Vancocin) IVPB 1,000 mg 1,000 mg, Intravenous, Every 12 hours, First dose on Fri02/21/25 at 0730, Until Discontinued, at 250 mL/hr, Routine 0815 (Given - Provider: Sundeep Gregory, RN)2024 (Given - Provider: Juwan Blackburn) 0858 (Given - Provider: Joselo Tracy RN) vancomycin IVPB 1750 mg in 250 mL NS IVPB (COMPLETED) 1,750 mg (rounded from 1,732 mg = 20 mg/kg 86.6 kg), Intravenous, Once, 1 dose, On Fri02/20/25 at 1615, at 167.4 mL/hr, STAT 1715 (New Bag - Provider: Hetal Mittal, LEONORA)1908 (Stopped - Provider: Trupti Santamaria) PRN Medication Order 02/20/2025 02/21/2025 02/22/2025 diclofenac (Voltaren) 1 % topical gel 1 g 1 g, Topical, 4 times daily PRN, Starting on Fri02/21/25 at 1939, Until Fri02/22/25 at 1541, Routine, joint pain 2024 (Given - Provider: David Blackburn) melatonin tablet 6 mg 6 mg, Oral, Nightly PRN, Starting on Fri02/21/25 at 0430, Until Fri02/22/25 at 1541, Routine, sleep 0517 (Given - Provider: Muna Abraham RN) sodium chloride 0.9 % flush 10 mL(Linked Group 1) 10 mL, Intravenous, As needed, Starting on Fri02/21/25 at 0901, Until Fri02/22/25 at 1541, Routine, line care Linked Groups Order Group 1: Insert peripheral IV (CANCELED) Once, On Fri02/21/25 at 0902, For 1 occurrence And Saline lock IV (CANCELED) Once, On Fri02/21/25 at 0902, For 1 occurrence And sodium chloride 0.9 % flush 10 mLJump to med 10 mL, Intravenous, Every 12 hours, First dose on Fri02/21/25 at 0910, Until Discontinued, Routine And sodium chloride 0.9 % flush 10 mLJump to med 10 mL, Intravenous, As needed, Starting on 02/21/25 at 0901, Until Tu02/22/25 at 1541, Routine, line care documented in this encounter Additional Health Concerns Assessment Noted Time A Body Mass Index follow-up plan has been documented for the patient 02/22/2025 12:06 PM EDT documented as of this encounter Care Teams Hotel Associate Relationship Specialty Start Date End Date Song Flaherty MD [address] [place] [address] PCP - General 02/02/21 documented as of this encounter
--- OUTSIDE RECORDS SUMMARY | 2025-02-24 06:30 | XMS_ITS ---
Author Organization [facility] Address [address] [facility] [address] [facility] [address] [place] [id number] Care Team Providers Care Grocery Carrier Name Role Phone Nely Flaherty Primary Care Provider Mark Matta [phone] REASON FOR VISIT 1 week Encounters Encounter Location Date Provider Diagnosis [facility] [address] [facility] [address] [facility] [address] [place] [phone] 02/24/2025 Mark Matta Plan Of Treatment Next Appt Details Provider Name:Nely Osullivan er, 05/12/2025 01:30:00 PM, [address] [facility] [address] [facility], [address], [place], [place], [phone], Progress Notes * WOODROW CAUSEYDOB:1960 ([age] yo F)Acc No.[id number]:02/24/2025 Progress Notes Patient: WOODROW JARAMILLO Provider: Suzan Matta M.D. :1960 A ge:64 Y S ex:Female Date:02/24/2025 Address:[address] [facility] [address], [id number] Pcp:Nely Flaherty Subjective: * Chief Complaints: * 1 . 1 week. * Medical History: Objective: * Vitals: Assessment: Plan: * Treatment: * Images: Billing Information: * Visit Code: * Procedure Codes: * Electronic signature of Patricia Matta MD on 03/29/2025 at 09:51 AM EDT Sign off status: Pending * Provider: Suzan Matta M.D. Date: 0 02/24/2025 Generated for Grecia lopez/Thomas/Noelle on: 0 03/29/2025 09:51 AM EDT
--- OUTSIDE RECORDS SUMMARY | 2025-03-02 06:45 | XMS_ITS ---
[facility] [address] [place] [id number] Care Team Providers Care Tack Driller Name Role Phone Nely Flaherty Primary Care Provider Mark Matta Unavailable [phone] Allergies Allergen (clinical drug ingredient) Drug/Non Drug Allergy documented on EMR Reaction Allergy Type Onset Date Status erythromycin Erythromycin Unknown Drug Allergy A ctive Penicillin anaphylaxis Drug Allergy Acti ve tolmetin Tolmetin Unknown Drug Allergy Active REASON FOR VISIT d/c follow up Medications Medication SIG (Take, Route, Frequency, Duration) Notes Start Date End Date Status Xanax 0.25 MG 1 tab(s) orally 2 times a day; Duration: 30 days 11/18/2024 Active Allopurinol 300 MG TAKE 1 TABLET BY MOUTH DAILY; Duration: 90 Active Rosuvastatin Calcium 10 MG 1 tab(s) orally once a day Increased by cardiology. Active Levothyroxine Sodium 137 MCG 2 tab(s) Orally once daily; Duration: 90 days Active Furosemide 40 MG 1 tablet Orally Once a day; Duration: 90 days Active Diclofenac Sodium 75 MG take 1 tablet by mouth twice daily; Duration: 30 days Active Metoprolol Succinate ER 100 MG Take 1 tablet by mouth once daily; Duration: 90 Active Lisinopril 20 MG 1 tablet Orally Once a day; Duration: 90 days Active Linezolid 600 MG 1 tablet Orally every 12 hrs Active Co Q 10 100 MG as directed Orally Active Aspirin Adult Low Dose 81 MG 1 tab(s) orally bedtime 11/27/2013 Active Vital Signs Blood pressure systolic 130 mm Hg 03/02/20 25 Blood pressure diastolic 84 mm Hg 025 Heart Rate 88 /min 03/02/2025 Height 68.50 in 03/02/2025 Weight 288 lbs 03/02/2025 BMI 43.15 kg/m2 03/02/2025 Encounters Encounter Location Date Provider Diagnosis [facility] [address] [facility] [address] [facility] [address] [place], [place] [phone] 03/02/2025 Mark Matta Flexor tenosynovitis of finger M65.949 Assessments Encounter Date Diagnosis (ICD Code) Assessment Notes Treatment Notes Treatment Clinical Notes Section Notes 03/02/2025 Flexor tenosynovitis of finger (ICD-10 - M65.949) Keep follow up with orthopedics at tomorrow 03/02/2025 Other Discharge summary with available lab/diagnostic imaging results obtained and reviewed. Discharge medication list reconciled. Appropriate counseling provided. Moderate Complexity Plan Of Treatment Treatment Notes Assessment Notes Flexor tenosynovitis of finger Keep foll ow up with orthopedics at tomorrow Other Discharge summary wi available lab/diagnostic imaging results obtained and reviewed. Discharge medication list reconciled. Appropriate counseling provided. Moderate Complexity Next Appt Details Follow Up: as scheduled,and prn, Reason: Provider Name:Nely Osullivan er, 05/12/2025 01:30:00 PM, [address] [facility] [address] [facility], [address], [place], [id number], Progress Notes * WOODROW HERNANDEZDOB:1960 ([age] yo F)Acc No.[id number]:03/02/2025 Patient: Trixie WOODROW ORELLANA Provider: Suzan Matta M.D. :1960 A ge:64 Y S ex:Female Date:03/02/2025 Address:[address] [place] [address] [address] [place], [id number] Pcp:Nely Flaherty Subjective: * Chief Complaints: * 1 . d/c follow up. * HPI: H PI: Patient is here today for a Transition of Care Visit. Discharge from the following Facility: [facility], following 2 day admission for F lexor tenosynovitis of finger and swelling of digit of hand requiring IV antibiotics. See discharge summary attached to patient documents, patient has appt with hand surgeon on 03/03/2025 per [facility] portal. D ischarge date: 02/22/2025 ,Date of phone contact following discharge: 02/23/2025. * ROS: D ERMATOLOGY: no R piper. n o H nelida. G ASTROENTEROLOGY: no N ausea. n o V omiting. U ROLOGY: no D ifficulty urinating. n o B lood in urine. * Medical History: A nxiety, Hypertension, Mitral Valve Prolapse, Arthritis, Knee Injections, 10/23/2017 ethmoid and maxillary sinusitis, 01/2017, 01/[address], 10/18/24 ADRI: mild obstructive disease . * Surgical History: H ysterectomy total , Splenectomy 1989, LT Knee Repair , Vein Surgery 03/2009, Thyroidectomy 01/13/2013, LT Knee Replacement 05/03/2013, radioactive iodine for thyroid 11/2013. * Hospitalization/Major Diagno stic Procedure: D aartiies Past Hospitalization. * Family History: F ather: , [place]. M other: , hypertension. S iblings: heart disease, stents, stroke. 1 sister(s) . . * Social History: C URRENT TOBACCO USE S moking Status: Patient does NOT smoke. C affeine: yes, frequency:. Exercise: yes. Home smoke detector use: yes. Marital Status: . New since last visit: none. Occupation: Ander. Past smoking status: no, Smoking status: Does not smoke, Former Smoker: Yes, Quit smokin. Occup. exposure: none. Recreational drug use: no. Alcohol: no. Travel ouside [place]: no. * Medications: T aking Linezolid 600 MG Tablet 1 tablet Orally every 12 hrs , Taking Co Q 10 100 MG Capsule as directed Orally , Taking Aspirin Adult Low Dose 81 MG Tablet Delayed Release 1 tab(s) orally bedtime , Taking Lisinopril 20 MG Tablet 1 tablet Orally Once a day , Taking Levothyroxine Sodium 137 MCG Tablet 2 tab(s) Orally once daily , Taking Furosemide 40 MG Tablet 1 tablet Orally Once a day , Taking Diclofenac Sodium 75 MG Tablet Delayed Release take 1 tablet by mouth twice daily , Taking Metoprolol Succinate ER 100 MG Tablet Extended Release 24 Hour Take 1 tablet by mouth once daily , Taking Xanax 0.25 MG Tablet 1 tab(s) orally 2 times a day , Taking Allopurinol 300 MG Tablet TAKE 1 TABLET BY MOUTH DAILY , Taking Rosuvastatin Calcium 10 MG Tablet 1 tab(s) orally once a day , Notes to Pharmacist: Increased by cardiology., Discontinued Bactrim DS 800-160 MG Tablet 1 tablet Orally Two times a day , Discontinued Clindamycin HCl 300 MG Capsule 1 capsule Orally every 12 hrs , Medication List reviewed and reconciled with the patient * Allergies: P enicillin: anaphylaxis, Erythromycin, Tolmetin. Objective: * Vitals: W t: 288, Temp: 98.0, BP: 130/84, HR: 88, Nurse: dee, Ht: 68.50, BMI:43.15. * Examination: G eneral Examination: General Appearance: N AD. E xtremities: r ight middle finger with limited active flexion, better passive flexion, healing wound over the palmar surface of the PIP joint, still with some dull skin erythema and edema over the proximal phalanx. ? Assessment: * Assessment: 1. F lexor tenosynovitis of finger - M65.949 (Primary) Plan: * Treatment: 2. O thers Notes: Discharge summary with available lab/diagnostic imaging results obtained and reviewed. Discharge medication list reconciled. Appropriate counseling provided. Moderate Complexity * Procedure Codes: G 2211 Complex e/[place], [address] [facility] 14 DAY DISCH, 1111F DSCHR MED/CURENT MED MERGE, 1036F TOBACCO NON-USER, G8783 BP SCR PRFRM RCMDD DEFIND SCR INTVL, G8752 MOST RECENT SYSTOLIC BP < 140MM HG, G8754 MOST RECENT DIASTOLIC BP < 90MM HG * Follow Up: a s scheduled,and prn * Images: Billing Information: * Visit Code: 16345 Office Visit, Est Pt., Level 3. * Procedure Codes: G2211 Complex e/[place]. [address] [facility] 14 DAY DISCH. 1111F DSCHR MED/CURENT MED MERGE. 1036F TOBACCO NON-USER. G8783 BP SCR PRFRM RCMDD DEFIND SCR INTVL. G8752 MOST RECENT SYSTOLIC BP < 140MM HG. G8754 MOST RECENT DIASTOLIC BP < 90MM HG. * Electronic signature of Patricia n Newnan , MD on 03/29/2025 at 09:51 AM EDT Sign off status: Pending * Provider: Suzan Matta M.D. Date: 0 03/02/2025 Generated for Grecia lopez/Thomas/Noelle on: 0 03/29/2025 09:51 AM EDT History and Physical Notes * HPI (History of Present Illness) Category Sub-Category Detail Notes Category Not es HPI Patient is here today for a [facility] of Care Visit. Discharge from the following Facility: [facility], following 2 day admission for Flexor tenosynovitis of finger and swelling of digit of hand requiring IV antibiotics. See discharge summary attached to patient documents, patient has appt with hand surgeon on 03/03/2025 per portal. Discharge date: 02/22/2025 ,Date of phone contact following discharge: 02/23/2025 Examination Category Sub-Category Detail Notes Category Not es General Examination Extremities: right middle finger with limited active flexion, better passive flexion, healing wound over the palmar surface of the PIP joint, still with some dull skin erythema and edema over the proximal phalanx General Appearance: NAD
--- OUTSIDE RECORDS SUMMARY | 2025-03-03 09:30 | XMS_ITS | Encounter Summary ---
Author Organization [facility] Address [address] [place] [address] Care Team Providers Care Sustainment Logistics Analyst Name Role Phone Song Flaherty MD Primary Care Provider [phone] Katy Santamaria SEPARATIONS SCIENTIST Unavailable Unavailable Reason for Visit * Reason Comments Pain Injury * Consultation (Urgent) - Closed Specialty Diagnoses / Procedures Referred By Contac t Referred To Contact Hand Surgery Diagnoses Swelling of digit of hand Codie Suarez MD [address] [place] [address] Phone: tel: fax: [facility] [address] [place] [address] Phone: tel: fax: Referral ID Status Reason Start Date Expiration Date V isits Requested Visits Authorized [id number] Closed Specialty Services Required 02/22/2025 08/24/2026 1 1 Encounter Details Date Type Department Care Team (Late st Contact Info) Description 03/03/2025 9:30 AM EDT Office Visit [facility] [address] [place] [address] Christina Moise PA [address] [address] Cellulitis of middle finger, right (Primary Dx); Swelling of digit of hand; Injury of flexor tendon of right hand, initial encounter Social History Tobacco Use Types Packs/Day Years Used Date Smoking Tobacco: Former Cigarettes Smokeless Tobacco: Never Tobacco Cessation:Counseling Given: Not Answered Alcohol Use Standard Drinks/Week Comments Never 0 (1 standard drink = 0.6 oz pur e alcohol) Humiliation, Afraid, Rape, and Kick questionnair e [...] and Family Not on file 02/23/2025 Attends [employer] Services Not on file 02/23 Active Member [...] any time in the past 12 m [facility], were you homeless or living in a nursing home (including now)? No 02/23/2025 Utilities Answer Date Recorded In the past 12 months has th e [employer], gas, oil, or water company threatened to shut off services in your home? No 02/23/2025 Comments Unknown Sex and Gender Information Value Date Recorded Sex Assigned at Not on file Legal Sex Female 6:12 PM EDT Gender Identity Not on file Sexual Orientation Not on file documented as of this encounter Last Filed Vital Signs Vital Sign Reading Time Taken Comments Blood Pressure 139/86 03/03/2025 9:50 AM EDT Pulse 76 03/03/2025 9:50 AM EDT Temperature - - Respiratory Rate 16 03/03/2025 9:50 AM EDT Oxygen Saturation 96% 03/03/2025 9:50 AM EDT Inhaled Oxygen Concentration - - Weight 131 kg (288 lb) 03/03/2025 9:50 AM EDT Height 177.8 cm (5' 10 ) 03/03/2025 9:50 AM EDT Body Mass Index 41.32 03/03/2025 9:50 AM EDT documented in this encounter Miscellaneous Notes * Progress Notes - Christina Moise PA - 03/03/2025 9:30 AM EDT Primary Care/Referred by: Song Flaherty MD/ Codie Suarez MD Handedness: RHD Injury: R LF cellulitis Date of injury: [] HPI: Mimi Causey is a 64 y.o. female here today as a new patient consult from Codie Suarez MD forevaluation of her R LF cellulitis. Pt initially fell on 02/15/25 and lacerated her finger just proximal to the PIP during the fall. She was attempting to break up a dog fight but denies animal bite. She was seen that day by her PC and laceration was repaired and she was started on oral bactrim and clindamycin. Her swelling and erythema continued to progress and she started to have purulent drainage so she presented to OSH on 02/20/25. At that time she was transferred to for concerns of flexor tenosynovitis. On initial exam she was found to have an abscess. Abscess was manually decompressed at bedside. FDS/FDP were found to be intact at that time. She was admitted for IV abx(meropenem and vancomycin ), CT and BID soaks were ordered. CT scan of right hand did demonstrate fluid around her flexor tendon sheath with possible enhancement however clinical examination did not fit findings consistent with flexor tenosynovitis. Per progress note: This appears most consistent with cellulitis and possibly reactive fluid in her flexor tendon sheath. She has 0/4 Kanavel signs present. Clinical exam and labs continued to improve so patient was discharged with oral abx, Linezolid and levoquin on 02/22/2025. She did call on 02/25/2025 stating she could not tolerate the levoquin due to severe joint pain that left her unable to stand. Under advisement from Dr. Farris she discontinued levoquin and continued linezolid. Today patient says the pain and swelling have improved. She has completed her linezolid. She says yesterday she noticed her finger would no longer come down and is stuck straight up. She says it was not like that in the hospital. In the hospital she was able to actively bring her LF down to meet her thumb. She has noticed some pain in her palm now as well. Denies fevers, chills, N/V, night sweats. Past medical and surgical history: Past Medical History: Past Medical History[1] 2 diabetes (last A1c 6.0), hypertension, diastolic heart failure Past Surgical History: Surgical History[2] Family History: Family History[3] Social History: Tobacco: [Denies] Alcohol: [Denies] Illicit drugs: [Denies] Drug allergies: Allergies[4] Lives in [place], [place] Occupation/Employment: house painter helper PMH/FMH/SH:I have reviewed the patient's medical history, surgical history, social history, and family history. These were found to be noncontributory. This is located in the patient's note and/or intheir intake form that has been scanned into their medical record at today's visit. ROS: A 14 point review of systems was conducted and was negative except aforementioned in the HPI, and if present the following systems listed below: PHYSICAL EXAM BMI is Body mass index is 41.32 kg/m??. General: No acute distress, well-nourished, well-developed. Neuro: A/Ox3, Speech is easily understandable, and the patient answers all questions appropriately. Upper Extremity Focused Musculoskeletal Exam: RUE Laceration is closed over, no deformity, soft compartments, no pain with passive stretch, Mildly ttp at P1 but not distal, mildly ttp in palm, improved erythema, improved inflammation though both are still present. No drainage, no fluctuance. Motor: 5/5 Biceps/Brach, 5/5 Triceps, 5/5 WF, 5/5 WE, 5/5 FF with exception of LF- FDS 0/5, FDP 0/5, 5/5 FE, 5/5 APB, 5/5 EPL, 5/5 FPL Sensory: Median nerve dist: Normal, Ulnar Nerve dist: Normal, Radial nerve dist: normal Vascular: 2+ radial pulse, cap refill <2 sec, digits WWP ROM: Full composite fist with exception of LF. LF has no active flexion, cannot maintain passive flexion. full extension of all digits, thumb opposes to base of 5th Imaging Reviewed: My independent interpretation of radiographic testing shows: none obtained Notes reviewed: ED consult, progress notes from inpatient admission Results of tests reviewed: CBC, BMP, ESR, CRP, and previous CT Differential diagnoses: FDS/FDP rupture Assessment/Plan: Cellulitis of middle finger, right Swelling of digit of hand Orders Placed This Encounter sulfamethoxazole-trimethoprim (Bactrim DS) 800-160 MG tablet Mimi Causey is a 64 y.o. female here today as a new patient consult from Codie Suarez MD for evaluation of her R LF cellulitis. She presents today with 1 day history of inability to flex her LF, which she was previously able to do. Exam is concerning for flexor tendon rupture. Recommend exploration and possible tendon repair. Pt is agreeable tot his plan. Will prescribe bactrim given she has finished linezolid but still has significant erythema and inflammation. The patient had the opportunity to ask questions, all of which were answered to their satisfaction. [1] No past medical history on file. [2] No past surgical history on file. [3] No family history on file. [4] Allergies Allergen Reactions Penicillin G Anaphylaxis Erythromycin Unknown - Patient states they do not know rxn details Levaquin [Levofloxacin] Other - please document in the comment field Joint pain Tolmetin Unknown - Patient states they do not know rxn details documented in this encounter Plan of Treatment Upcoming Encounters Date Type Department Care Team (Late st Contact Info) Description 04/28/2025 11:10 AM EDT Office Visit [facility] [address] [place] [phone] Carlos Fofana MD [address] [phone] Scheduled Procedures Name Priority Associated Diagnoses Date/Ti me TENOLYSIS, FLEXOR, PALM AND FINGER Open wound of left middle finger without damage to nail, sequela documented as of this encounter Visit Diagnoses Diagnosis Cellulitis of middle finger, right- Primary Swelling of digit of hand Injury of flexor tendon of right hand, initial encounter documented in this encounter Additional Health Concerns Assessment Noted Time A fall risk assessment has been complete d for the patient 03/03/2025 9:53 AM EDT A Body Mass Index follow-up plan has been documented for the patient 03/07/2025 10:45 AM EDT documented as of this encounter Care Teams Sustainment Logistics Analyst Relationship Specialty Start Date End Date Song Flaherty MD [address] [place] [address] PCP - General 02/02/21 Katy Santamaria, SEPARATIONS SCIENTIST VALUE-BASED [place] [address] TCM Nurse 02/23/25 03/25/25 documented as of this encounter
--- OUTSIDE RECORDS SUMMARY | 2025-03-14 04:16 | XMS_ITS ---
Author Organization [facility] Address [address] [place] [address] [address] [facility] [address] [place] [phone] Care Team Providers Care Fleet Salesperson Name Role Phone Nely Flaherty Primary Care Provider [phone] REASON FOR VISIT due mamm, bone den & colonoscopy Encounters Encounter Location Date Provider Diagnosis [facility] [address] [place] [address] [address] [facility] [address] [place] [phone] 03/14/2025 Nely Flaherty Screening for colon cancer Z12.11 Assessments Encounter Date Diagnosis (ICD Code) Assessment Notes Treatment Notes Treatment Clinical Notes Section Notes 03/14/2025 Screening for colon cancer (ICD-10 - Z12.11) Plan Of Treatment Pending Test Test Name Order Date Cologuard 03/14/2025 Next Appt Details Provider Name:Nely Osullivan er, 05/12/2025 01:30:00 PM, [address] [facility] [address] [facility], [address], [place], [phone], Progress Notes * DAVIDBIMALWENDYDOB:1960 ([age] yo F)Acc No.[id number]:03/14/2025 Patient: WOODROW JARAMILLO :1960 A ge:65 Y S ex:Female Address:[address] [facility] [address], [place] [address] Subjective: * Chief Complaints: * D ue mamm, bone den & colonoscopy * Medical History: * Surgical History: * Hospitalization/Major Diagno stic Procedure: * Medications: Objective: * Vitals: * Physical Examination: Assessment: * Assessment: 1. S creening for colon cancer - Z12.11 (Primary) Plan: * Treatment: * Procedure Codes: * true * Date: Generated for Grecia lopez/Thomas/Noelle on: 0 03/29/2025 09:50 AM EDT
--- OUTSIDE RECORDS SUMMARY | 2025-03-21 11:10 | XMS_ITS | Encounter Summary ---
Author Organization [facility] Address [address] [place] [address] Care Team Providers Care Mounter Saxophones Name Role Phone Song Flaherty MD Primary Care Provider [phone] Katy Santamaria MATERIAL PLANNER Unavailable Unavailable Reason for Visit * Reason Comments Post-op Post-op Encounter Details Date Type Department Care Team (Late st Contact Info) Description 03/21/2025 11:10 AM EDT Office Visit [facility] [address] [place] [id number] Carlos Fofana MD [address] [place] [address] Injury of flexor tendon of right hand, initial encounter (Primary Dx); Flexor tenosynovitis of finger Social History Tobacco Use Types Packs/Day Years Used Date Smoking Tobacco: Former Cigarettes Smokeless Tobacco: Never Alcohol Use Standard Drinks/Week Comments Never 0 [...] and Family Not on file 02/23/2025 Attends Jewish Services Not on file 02/23 Active Member [...] any time in the past 12 m [facility], were you homeless or living in a jail (including now)? No 02/23/2025 Utilities Answer Date [...] Sign Reading Time Taken Comments Blood Pressure 120/72 03/21/2025 11:17 AM EDT Pulse 77 03/21/2025 11:17 AM EDT Temperature 36.6 C (97.8 F) 03/21/2025 11:17 AM EDT Respiratory Rate - - Oxygen Saturation 98% 03/21/2025 11:17 AM EDT Inhaled Oxygen Concentration - - Weight 131 kg (288 lb) 03/21/2025 11:17 AM EDT Height 177.8 cm (5' 10 ) 03/21/2025 11:17 AM EDT Body Mass Index 41.32 03/21/2025 11:17 AM EDT documented in this encounter Miscellaneous Notes * Progress Notes - Erin Aguilera MD - 03/21/2025 11:10 AM EDT Hand Surgery Note Subjective: Mimi Causey is a 65 y.o. female who presents for follow up s/p I/D right middle finger with excision of flexor tendons due to infection. Patient is overall doing well. [place] [facility] [place]. She is taking abx and has not had f/c. 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 Objective: Vitals: 03/21/25 1117 BP: 120/72 Pulse: 77 Temp: 36.6 ??C (97.8 ??F) SpO2: 98% Right hand: well healing vadim incision on middle finger, no sign of infection. Mild swelling. Noactive motion at DIP or PIP. Passive motion at DIP 0-15 degrees, PIP 0-5 degrees. Sensation intact in M/U/R distribution Assessment and Plan: Mimi Causey is a 65 y.o. female with history of infection of R MF s/p I/D with excision of flexor tendons on 03/08/25. She is doing well overall. Had a lengthy discussion about options going forth including doing nothing further surgically, 2 stage tendon reconstruction, and amputation at PIP vs ray. She will think about her options but she is most interested in 2 stage tendon reconstruction. We discussed the importance of formal OT and that we will not proceed unless she does therapy. We would like to let her think about options and do therapy to improve passive motion in the meantime. -OT - RTC in 6 weeks. Patient advised to contact us sooner with any questions or concerns. Erin Aguilera M.D. Hand Fellow, PGY7 Cosigned by Carlos Fofana MD at 03/23/2025 11:07 AM EDT Associated attestation - Carlos Fofana MD - 03/23/2025 11:07 AM EDT I saw and evaluated the patient with the resident/fellow. I discussed the case with the resident/fellow and agree with the findings and plan as documented. documented in this encounter Plan of Treatment Upcoming Encounters Date Type Department Care Team (Late st Contact Info) Description 04/28/2025 11:10 AM EDT Office Visit [facility] [address] [place] [address] Carlos Fofana MD [address] [phone] Scheduled Procedures Name Priority Associated Diagnoses Date/Ti me TENOLYSIS, FLEXOR, PALM AND FINGER Open wound of left middle finger without damage to nail, sequela documented as of this encounter Visit Diagnoses Diagnosis Injury of flexor tendon of right hand, initial encounter- Primary Flexor tenosynovitis of finger Other tenosynovitis of hand and wrist documented in this encounter Additional Health Concerns Assessment Noted Time A fall risk assessment has been complete d for the patient 03/21/2025 11:13 AM EDT A Body Mass Index follow-up plan has been documented for the patient 03/21/2025 12:10 PM EDT documented as of this encounter Care Teams Mounter Saxophones Relationship Specialty Start Date End Date Song Flaherty MD [address] [place] [address] PCP - General 02/02/21 Katy Santamaria LPN [employer] [place] [address] TCM Nurse 02/23/25 03/25/25 documented as of this encounter
--- OUTSIDE RECORDS SUMMARY | 2025-03-29 09:49 | XMS_ITS | Encounter Summary ---
Author Organization [facility] Address [address] [place] [address] Care Team Providers Care Computer Console Operator Name Role Phone Song Flaherty MD Primary Care Provider [phone] Encounter Details Date Type Department Care Team (Late st Contact Info) Description 02/15/2025 Orders Only External Location [address] [place] [address] Provider, External Social History Tobacco Use Types Packs/Day Years Used Date Smoking Tobacco: Never Assessed Humiliation, Afraid, Rape, and Kick questionnair e Answer Date Recorded Within the last year, have y ou been afraid of your partner or ex-partner? No 02/21/2025 Within the last year, have y ou been humiliated or emotionally abused in other ways by your partner or ex-partner? No Within the last year, have y ou been kicked, hit, slapped, or otherwise physically hurt by your partner or ex-partner? No 02/21/2025 Within the last year, have y ou been raped or forced to have any kind of sexual activity by your partner or ex-partner? No 02/21/2025 Hunger Vital Sign Answer Date Recorded Within the past 12 months, y ou worried that your food would run out before you got the money to buy more. Never true 02/22/20 25 Within the past 12 months, t he food you bought just didn't last and you didn't have money to get more. Never true 02/21/2025 PRAPARE - Transportation Answer Date Re corded In the past 12 months, has l ack of transportation kept you from medical appointments or from getting medications? No 10/2024 In the past 12 months, has l ack of transportation kept you from meetings, work, or from getting things needed for daily living? No 02/21/2025 Housing Stability Vital Sign Answer Joseph e Recorded In the last 12 months, was t here a time when you were not able to pay the mortgage or rent on time? No 02/21/2025 In the past 12 months, how m any times have you moved where you were living? 0 02/21/2025 At any time in the past 12 m [facility], were you homeless or living in a skilled nursing (including now)? No 02/21/2025 Utilities Answer Date Recorded In the past 12 months has th e electric, gas, oil, or water company threatened to shut off services in your home? No 02/21/2025 Comments Unknown Sex and Gender Information Value Date Recorded Sex Assigned at Not on file Legal Sex Female 6:12 PM EDT Gender Identity Not on file Sexual Orientation Not on file documented as of this encounter Functional Status * Calculated C-SSRS Risk Score (Lifetime/Recent) Answer Date of Assessment Author No Risk Indicated 02/20/2025 3:49 PM EDT Hetal Mittal RN * Question Answer Date of Assessment Author 1. Wish to be (Past 1 Month) No 02/20/2025 3:49 PM EDT Hetal Mittal RN 2. Non-Specific Active Suici donavon Thoughts (Past 1 Month) No 02/20/2025 3:49 PM EDT Radha Mittal RN 6. Suicidal Behavior (Lifetime) No 3:49 PM EDT Hetal Mittal RN documented as of this encounter Plan of Treatment Upcoming Encounters Date Type Department Care Team (Late st Contact Info) Description 04/28/2025 11:10 AM EDT Office Visit [facility] [address] [place] [address] Carlos Fofana MD [address] [place] [phone] Scheduled Procedures Name Priority Associated Diagnoses Date/Ti me TENOLYSIS, FLEXOR, PALM AND FINGER Open wound of left middle finger without damage to nail, sequela documented as of this encounter Procedures Procedure Name Priority Date/Time Associated Diagnosis Comments XR OUTSIDE IMAGES 02/15/2025 11:51 AM EDT documented in this encounter Results * XR OUTSIDE IMAGES (02/15/2025 11:51 AM EDT) Anatomical Region Laterality Modality Radiographic Rina ging 02/15/2025 11:5 1 AM EDT us External Provider IMG XR PROCEDURES Final Result documented in this encounter Visit Diagnoses Not on filedocumented in this encounter Care Teams Computer Console Operator Relationship Specialty Start Date End Date Song Flaherty MD [address] [place] [id number] PCP - General 02/02/21 documented as of this encounter
--- OUTSIDE RECORDS SUMMARY | 2025-03-29 09:49 | XMS_ITS ---
Author Organization [facility] Address [address] [id number] Care Team Providers Care Yard Assistant Name Role Phone Song Flaherty MD Primary Care Provider [phone] Transitional Care Management Status:Closed (Closed) Start date:02/23/2025 Enrollment date:02/23/2025 Enrollment reason:Identified using hospital discharge data End date:03/25/2025 Close reason:Patient graduated Overview This episode type is for outpatient care managers enrolling patients in the [facility] Transitional Care Management program. Continued Care and Services Coordination
--- OUTSIDE RECORDS SUMMARY | 2025-03-29 09:50 | XMS_ITS | Encounter Summary ---
Author Organization [facility] Address [address] [place] [address] Care Team Providers Care Compounding Technician Name Role Phone Song Flaherty MD Primary Care Provider [phone] Encounter Details Date Type Department Care Team (Late st Contact Info) Description 02/15/2025 Orders Only External Location [address] [place] [address] Provider, External Social History Tobacco Use Types [...] any time in the past 12 m [facility], were you homeless or living in a assisted (including now)? No 02/21/2025 Utilities Answer Date [...] 11:10 AM EDT Office Visit [facility] [address] [place] [address] Carlos Fofana MD [address] [place] [phone] Scheduled Procedures Name Priority Associated Diagnoses [...] on filedocumented in this encounter Care Teams Compounding Technician Relationship Specialty Start Date End Date Song Flaherty MD [address] [place] [address] PCP - General 02/02/21 documented as of this encounter
--- OUTSIDE RECORDS SUMMARY | 2025-03-29 09:50 | XMS_ITS | Encounter Summary ---
Author Organization [facility] Address [address] [place] [address] Care Team Providers Care Vba Developer Name Role Phone Song Flaherty MD Primary Care Provider [phone] Encounter Details Date Type Department Care Team (Latest Contact Info) Description 02/20/2025 Travel Social History Tobacco Use Types Packs/Day Years [...] any time in the past 12 m [facility], were you homeless or living in a senior living (including now)? No 02/21/2025 Utilities Answer Date Recorded In the past 12 months has th e [employer], gas, oil, or water company threatened to [...] Description 04/28/2025 11:10 AM EDT Office Visit [facility] [address] [place] [address] Carlos Fofana MD [address] [place] [phone] Scheduled Procedures Name Priority Associated Diagnoses Date/Ti me TENOLYSIS, FLEXOR, PALM AND FINGER Open wound of left middle finger without damage to nail, sequela documented as of this encounter Visit Diagnoses Not on filedocumented in this encounter Additional Health Concerns Assessment Noted Time A Body Mass Index follow-up plan has been documented for the patient 02/22/2025 12:06 PM EDT documented as of this encounter Care Teams Vba Developer Relationship Specialty Start Date End Date Song Flaherty MD [address] [place] [address] PCP - General 02/02/21 documented as of this encounter
--- OUTSIDE RECORDS SUMMARY | 2025-03-29 09:50 | XMS_ITS | Patient Health Record ---
Author Organization [facility] Address [address] [place] [id number] Care Team Providers Care Cloth Shrinking Machine Operator Helper Name Role Phone Nely Flaherty Primary Care Provider [place] Unavailable [phone] Allergies Allergen (clinical drug ingredient) Drug/Non Drug Allergy documented on EMR Reaction Allergy Type Onset Date Status erythromycin Erythromycin Unknown Drug Allergy A ctive Penicillin anaphylaxis Drug Allergy Acti ve tolmetin Tolmetin Unknown Drug Allergy Active Results Component Value Reference Range Notes P-Basic Metabolic Panel (BMP ) Reviewed date:09/23/2024 09:17:22 AM Interpretation:bun 32, Cr 1.08, gfr 57 Performing Lab: Notes/Report: Test performed by [facility], [facility] [address] [place] [address] , [address], [place] [address] Carter Mills MD, Press Washer CLIA: [id number] Sodium 140 135-145 mmol/L Potassium 5.2 3.5-5.3 mmol/L Chloride 101 97-108 mmol/L CO2 24 22-32 mmol/L Glucose 93 65-99 mg/dL BUN 32 8-23 mg/dL Creatinine 1.08 0.50-1.00 mg/dL Calcium 9.1 8.6-10.4 mg/dL eGFR by Creatinine 57 >59 mL/min/1.73m2 CBC Fingerstick (in house) Reviewed date:02/17/2025 12:06:41 PM Interpretation: Performing Lab: Notes/Report: wbc 17.8 3.5 - 10 lym 26.4% 15 - 50 mid 5.6% 2 - 15 gran 68.0 35 - 80 rbc 4.15 3.5 - 5.5 hgb 12.6 11.5 - 16.5 hct 38.5 35 - 55 mcv 92.6 75 - 100 mch 30.4 25 - 35 mchc 32.7 31 - 38 plat 282 100 - 400 P-TSH Reviewed date:03/31/2024 10:57:57 AM Interpretation:35.7 Performing Lab: Notes/Report: Test performed by [facility] [address] [place] [address] , [place] [address] Carter Mills MD, Press Washer CLIA: [id number] TSH 35.70 0.43-5.25 mU/L P-Comprehensive Metabolic Pa doc (CMP) Reviewed date:03/31/2024 10:57:57 AM Interpretation:bun 48, Cr 1.47, gfr 39 Performing Lab: Notes/Report: Test performed by [facility] [address] [place] [address] , [place] [address] Carter Mills MD, Press Washer CLIA: [id number] Sodium 139 135-145 mmol/L Potassium 4.4 3.5-5.3 mmol/L Chloride 100 97-108 mmol/L CO2 24 22-32 mmol/L Glucose 94 65-99 mg/dL BUN 48 8-23 mg/dL Creatinine 1.47 0.50-1.00 mg/dL Calcium 9.2 8.6-10.4 mg/dL eGFR by Creatinine 39 >59 mL/min/1.73m2 Protein 7.1 6.0-8.3 g/dL Albumin 4.3 3.5-5.3 g/dL Alkaline Phosphatase 74 35-121 IU/L ALT (SGPT) 14 <5-47 IU/L AST (SGOT) 13 <5-40 IU/L Bilirubin, Total 0.3 <0.2-1.2 mg/dL A/G Ratio 1.5 1.1-2.5 mg/dL Glycohemoglobin A1c (in hous e) Reviewed date:03/29/2024 11:34:04 AM Interpretation:5.9% Performing Lab: Notes/Report: 5.9% glycohemoglobin 5.9% 5 - 6.5 % P-Comprehensive Metabolic Pa doc (CMP) Reviewed date:01/21/2025 12:30:15 PM Interpretation:gluc 101, bun 29, Cr 1.23, gfr 49, alk phos 122 Performing Lab: Notes/Report: Test performed by [facility] [address] [place] [address] , [address], [place] [address] Carter Mills MD, Press Washer CLIA: [id number] Sodium 141 135-145 mmol/L Potassium 4.7 3.5-5.3 mmol/L Chloride 103 97-108 mmol/L CO2 27 22-32 mmol/L Glucose 101 65-99 mg/dL BUN 29 8-23 mg/dL Creatinine 1.23 0.50-1.00 mg/dL Calcium 9.7 8.6-10.4 mg/dL eGFR by Creatinine 49 >59 mL/min/1.73m2 Protein 6.6 6.0-8.3 g/dL Albumin 4.0 3.5-5.3 g/dL Alkaline Phosphatase 122 35-121 IU/L ALT (SGPT) 21 <5-47 IU/L AST (SGOT) 16 <5-40 IU/L Bilirubin, Total 0.3 <0.2-1.2 mg/dL A/G Ratio 1.5 1.1-2.5 [facility] ([facility]) Reviewed date:06/07/2024 10:22:53 AM Interpretation:Normal Performing Lab: Notes/Report: Test performed by [facility] [address] [place] [address] , [address], [place] [address] Carter Mills MD, Press Washer CLIA: [id number] Sodium 140 135-145 mmol/L Potassium 5.2 3.5-5.3 mmol/L Chloride 104 97-108 mmol/L CO2 27 22-32 mmol/L Glucose 92 65-99 mg/dL BUN 23 8-23 mg/dL Creatinine 0.85 0.50-1.00 mg/dL Calcium 9.4 8.6-10.4 mg/dL eGFR by Creatinine 76 >59 mL/min/1.73m2 Protein 6.5 6.0-8.3 g/dL Albumin 4.0 3.5-5.3 g/dL Alkaline Phosphatase 75 35-121 IU/L ALT (SGPT) 13 <5-47 IU/L AST (SGOT) 11 <5-40 IU/L Bilirubin, Total 0.3 <0.2-1.2 mg/dL A/G Ratio 1.6 1.1-2.5 P-TSH Reviewed date:06/07/2024 10:22:53 AM Interpretation:0.09 Performing Lab: Notes/Report: Test performed by [facility] [address] , [place] [address] Carter Mills MD, Press Washer CLIA: [id number] TSH 0.09 0.43-5.25 mU/L [facility] Hip [facility] Sp[facility] Reviewed date:06/07/2024 10:22:53 AM Interpretation:osteopenia left hip Performing Lab: Notes/Report: osteopenia left hip Dexa results osteopenia left hip P-TSH Reviewed date:01/21/2025 12:30:15 PM Interpretation:0.18 Performing Lab: Notes/Report: Test performed by [facility] [address] , [place] [address] Carter Mills MD, Press Washer CLIA: [id number] TSH 0.18 0.43-5.25 mU/L P-Uric Acid Reviewed date:01/21/2025 12:30:16 PM Interpretation:Normal Performing Lab: Notes/Report: Test performed by [facility] [address] , [place] [address] Carter Mills MD, Press Washer CLIA: [id number] Uric Acid 5.8 2.4-7.0 mg/dL CBC Venipuncture (in house) Reviewed date:07/06/2024 04:13:23 PM Interpretation:wbc 12.4, plat 419 Performing Lab: Notes/Report: wbc 12.4, plat 419 wbc 12.4 3.5 - 10 lymph 22.3 15 - 50 mid 5.9 2 - 15 gran 71.8 35 - 80 rbc 4.57 3.5 - 5.5 hgb 13.5 11.5 - 16.5 hct 41.8 35 - 55 mcv 91.4 75 - 100 mch 29.6 25 - 35 mchc 32.4 31 - 38 platlet 419 100 - 400 P-Basic Metabolic Panel (BMP ) Reviewed date:07/06/2024 04:13:23 PM Interpretation:bun 34 Performing Lab: Notes/Report: Test performed by [facility] [address] [place] [address] [address] , [place] [address] Carter Mills MD, Press Washer CLIA: [id number] Sodium 141 135-145 mmol/L Potassium 4.6 3.5-5.3 mmol/L Chloride 104 97-108 mmol/L CO2 23 22-32 mmol/L Glucose 84 65-99 mg/dL BUN 34 8-23 mg/dL Creatinine 1.00 0.50-1.00 mg/dL Calcium 9.1 8.6-10.4 mg/dL eGFR by Creatinine 62 >59 mL/min/1.73m2 P-Uric Acid Reviewed date:07/06/2024 04:13:23 PM Interpretation:9.6 Performing Lab: Notes/Report: Test performed by [facility], [facility] [address] [place] [address] [address], [place] [address] Carter Mills MD, Press Washer CLIA: [id number] Uric Acid 9.6 2.4-7.0 mg/dL Medications Medication SIG (Take, Route, Frequency, Duration) Notes Start Date End Date Status Metoprolol Succinate ER 100 MG Take 1 tablet by mouth once daily; Duration: 90 days Active Levothyroxine Sodium 137 MCG 2 tab(s) Orally once daily; Duration: 90 days Active Diclofenac Sodium 75 MG take 1 tablet by mouth twice daily; Duration: 30 days Active Furosemide 40 MG 1 tablet Orally Once a day; Duration: 90 days Active Xanax 0.25 MG 1 tab(s) orally 2 times a day; Duration: 30 days 11/18/2024 Active Allopurinol 300 MG TAKE 1 TABLET BY MOUTH DAILY; Duration: 90 Active Rosuvastatin Calcium 10 MG 1 tab(s) orally once a day Increased by cardiology. Active Linezolid 600 MG 1 tablet Orally every 12 hrs Active Co Q 10 100 MG as directed Orally Active Aspirin Adult Low Dose 81 MG 1 tab(s) orally bedtime 11/27/2013 Active Lisinopril 20 MG 1 tablet Orally Once a day; Duration: 90 days Active Immunizations Vaccine Route Administration Date Status Comme nts xAdministration of injection ID Intradermal 03/19/2012 Administered Tetanus Tdap-Adacel (over 7yrs) IM Intramuscular 01/29/2018 Administered Prevnar (PCV13) IM Intramuscular 08/26/2016 Administered PNEUMOVAX 23 VACCINE IM Intramuscular 01/29/2018 Administe red Hepatitis A (adult) Unknown 09/08/2018 Administered COVID 19 Pfizer Unknown 01/19/2021 Administered Problems Problem Type SNOMED Code ICD Code Onset Dates Problem Status W/U Status Risk Notes Problem Hypothyroidism (06370531) Hypothyroidism (acquired) (E03.9) Active confirmed Problem Essential hypertension (58715961) Essential hypertension (I10) Active confirmed Problem Morbid obesity (disorder) (908998762) Morbid (severe) obesity due to excess calories (E66.01) Active confirmed Problem Mixed hyperlipidemia (208624947) Mixed hyperlipidemia (E78.2) Active confirmed Problem Anxiety disorder (574456086) Other mixed anxiety disorders (F41.3) Active confirmed Problem Hyperlipidemia due to type 2 diabetes mellitus (disorder) (895614475839665) Hyperlipidemia associated with type 2 diabetes mellitus (E11.69) Active confirmed Problem Carpal tunnel syndrome of right wrist (136116456849154) Carpal tunnel syndrome of right wrist (G56.01) Active confirmed Problem Ex-tobacco user (finding) (888182622) History of tobacco use (Z87.891) Active confirmed Problem Body mass index 40+ - morbidly obese (880872211) BMI 40.0-44.9, adult (Z68.41) Active confirmed Problem Postoperative hypothyroidism (65125462) Postoperative hypothyroidism (E89.0) Active confirmed Problem Chronic ethmoidal sinusitis (09550561) Sinusitis chronic, ethmoidal (J32.2) Active confirmed Problem Cervical spondylosis without myelopathy (374802011) Osteoarthritis of spine with radiculopathy, cervical region (M47.22) Active confirmed Problem Type II diabetes mellitus without complication (004467820) Type 2 diabetes mellitus without complication, without long-term current use of insulin (E11.9) Active confirmed Problem Gout (06554802) Acute gout of right foot, unspecified cause (M10.9) Active confirmed Problem Gout (29107152) Gout of left foot, unspecified cause, unspecified chronicity (M10.9) Active confirmed Problem History of malignant neoplasm of thyroid (945482700) History of thyroid cancer (Z85.850) Active confirmed Problem Fibrocystic breast changes (04511147) Fibrocystic breast disease (FCBD), unspecified laterality (N60.19) Active confirmed Problem Diastolic heart failure (729197253) Heart failure with preserved left ventricular function (HFpEF) (I50.30) Active confirmed Problem Type 2 diabetes mellitus with other specified complication, unspecified whether terminal carman insulin use (E11.69) Active confirmed Vital Signs Heart Rate 88 /min 03/02/2025 Blood pressure diastolic 84 mm Hg 03/02/2025 Height 68.50 in 03/02/2025 Blood pressure systolic 130 mm Hg 03/02/2025 Weight 288 lbs 03/02/2025 BMI 43.15 kg/m2 03/02/2025 Encounters Encounter Location Date Provider Diagnosis [facility] [address] [id number] 05/28/2024 Nely Flaherty Essential hypertensi on I10 ; Hypothyroidism (acquired) E03.9 ; Postoperative hypothyroidism E89.0 ; Type 2 diabetes mellitus without complication, without long-term current use of insulin E11.9 ; Osteoarthritis of spine with radiculopathy, cervical region M47.22 ; BMI 40.0-44.9, adult Z68.41 ; Screen for colon cancer Z12.11 and Osteopenia, unspecified location M85.80 [facility] [address] [id number] 07/02/2024 Nely Flaherty Bunion, left foot M21.612 and Essential hypertension I10 [facility] [address] [id number] 09/20/2024 Nely Flaherty Hyperlipidemia associated with type 2 diabetes mellitus E11.69 ; Hyperuricemia E79.0 ; Gout of left foot, unspecified cause, unspecified chronicity M10.9 and 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 [facility] [address] [id number] 01/10/2025 Nely Flaherty Essential hypertensi on I10 ; Hypothyroidism (acquired) E03.9 ; History of thyroid cancer Z85.850 ; Mixed hyperlipidemia E78.2 ; BMI 40.0-44.9, adult Z68.41 ; Type 2 diabetes mellitus without complication, without long-term current use of insulin E11.9 ; Acute gout of right foot, unspecified cause M10.9 and Type 2 diabetes mellitus with other specified complication, unspecified whether halfway insulin use E11.69 [facility] [address] [place], [place] [id number] 02/17/2025 Mark [place] Acute URI J06.9 and Visit for wound check Z51.89 [facility] [address] [place], [place] [id number] 03/02/2025 Mark [place] Flexor tenosynovitis of finger M65.949 [facility] [address] [place], [place] [id number] 03/29/2024 Nely Flaherty Type 2 diabetes ezequiel itus without complication, without long-term current use of insulin E11.9 ; Essential hypertension I10 ; Postoperative hypothyroidism E89.0 and Other mixed anxiety disorders F41.3 [facility] [address] [place], [place] [id number] 03/31/2024 Nely Flaherty [facility] [address] [place], [place] [id number] 04/14/2024 Nely Flaherty [facility] [address] [place], [place] [id number] 06/01/2024 Nely Flaherty Other mixed anxiety disorders F41.3 [facility] [address] [place] [id number] 06/04/2024 Nely Flaherty [facility] [address] [place], [place] [id number] 06/07/2024 Nely Flaherty [facility] [address] [place] [id number] 07/05/2024 Nely Flaherty Essential hypertensi on I10 [facility] [address] [place], [place] [id number] 07/06/2024 Nely Flaherty [facility] [address] [place] [id number] 07/21/2024 Nely Flaherty [facility] [address] [place], [place] [id number] 09/23/2024 Nely Flaherty [facility] [address] [place] [id number] 11/18/2024 Nely Flaherty Other mixed anxiety disorders F41.3 [facility] [address] [place], [place] [id number] 01/19/2025 Nely Flaherty [facility] [address] [place] [id number] 01/21/2025 Nely Flaherty [facility] [address] [place] [id number] 02/23/2025 Nely Flaherty [facility] [address] [place], [place] [id number] 03/14/2025 Nely Flaherty Screening for colon cancer Z12.11 Assessments Encounter Date Diagnosis (ICD Code) Assessment Notes Treatment Notes Treatment Clinical Notes Section Notes 03/29/2024 Essential hypertension (ICD-10 - I10) 03/29/2024 Type 2 diabetes mellitus without complication, without long-term current use of insulin (ICD-10 - E11.9) 05/28/2024 Hypothyroidism (acquired) (ICD-10 - E03.9) 05/28/2024 Essential hypertension (ICD-10 - I10) 06/01/2024 Other mixed anxiety disorders (ICD-10 - F41.3) 07/02/2024 Essential hypertension (ICD-10 - I10) 07/02/2024 Bunion, left foot (ICD-10 - M21.612) 07/05/2024 Essential hypertension (ICD-10 - I10) 09/20/2024 Hyperuricemia (ICD-10 - E79.0) 09/20/2024 Hyperlipidemia associated with type 2 diabetes mellitus (ICD-10 - E11.69) 11/18/2024 Other mixed anxiety disorders (ICD-10 - F41.3) 01/10/2025 Hypothyroidism (acquired) (ICD-10 - E03.9) 01/10/2025 Essential hypertension (ICD-10 - I10) continue Rx 02/17/2025 Visit for wound check (ICD-10 - Z51.89) 02/17/2025 Acute URI (ICD-10 - J06.9) 03/02/2025 Flexor tenosynovitis of finger (ICD-10 - M65.949) Keep follow up with orthopedics at tomorrow 03/14/2025 Screening for colon cancer (ICD-10 - Z12.11) 01/10/2025 History of thyroid cancer (ICD-10 - Z85.850) 05/28/2024 Postoperative hypothyroidism (ICD-10 - E89.0) 09/20/2024 Gout of left foot, unspecified cause, unspecified chronicity (ICD-10 - M10.9) 03/29/2024 Postoperative hypothyroidism (ICD-10 - E89.0) 03/29/2024 Other mixed anxiety disorders (ICD-10 - F41.3) 09/20/2024 Papilloma (ICD-10 - D36.9) 05/28/2024 Type 2 diabetes mellitus without complication, without long-term current use of insulin (ICD-10 - E11.9) 01/10/2025 Mixed hyperlipidemia (ICD-10 - E78.2) 01/10/2025 BMI 40.0-44.9, adult (ICD-10 - Z68.41) 05/28/2024 Osteoarthritis of spine with radiculopathy, cervical region (ICD-10 - M47.22) 01/10/2025 Type 2 diabetes mellitus without complication, without long-term current use of insulin (ICD-10 - E11.9) 05/28/2024 BMI 40.0-44.9, adult (ICD-10 - Z68.41) 05/28/2024 Screen for colon cancer (ICD-10 - Z12.11) 01/10/2025 Acute gout of right foot, unspecified cause (ICD-10 - M10.9) 05/28/2024 Osteopenia, unspecified location (ICD-10 - M85.80) 01/10/2025 Type 2 diabetes mellitus with other specified complication, unspecified whether terminal carman insulin use (ICD-10 - E11.69) 03/02/2025 Other Discharge summary with available lab/diagnostic imaging results obtained and reviewed. Discharge medication list reconciled. Appropriate counseling provided. Moderate Complexity Plan Of Treatment Pending Test Test Name Order Date Cologuard 05/28/2024 Cologuard 03/14/2025 Next Appt Details Provider Name:Nely Lee Abran er, 05/12/2025 01:30:00 PM, [address], [place], [place], [id number], Insurance Providers Payer Name Payer Address Payer Phone Subscriber Number Group Number Insured Name Patient Relationship to Insured Coverage Start Date Coverage End Date MEDICARE PART B [address] [address] [place] [id number] DAVID BIMALWENDY Self - patient is the insured [facility] [facility] [address] [place] [address] [id number] WOODROW CAUSEY Self - patient is the insured Medical (General) History Medical History History ICD Code Anxiety Hypertension Mitral Valve Prolapse Arthritis Knee Injections 10/23/2017 ethmoid and maxillary sinusit is 01/2017, 01/[address] 10/18/24 ADRI: mild obstructive disease Surgical History Surgery Date(Month/Year) Hysterectomy total Splenectomy 1989 LT Knee Repair Vein Surgery 03/2009 Thyroidectomy 01/13/2013 LT Knee Replacement 05/03/2013 radioactive iodine for thyroid 11/2013
--- OUTSIDE RECORDS SUMMARY | 2025-03-29 09:50 | XMS_ITS | Encounter Summary ---
Author Organization Healthcare Address [address] [place] [address] Care Team Providers Care Facer Operator Name Role Phone Song Flaherty MD Primary Care Provider [phone] Katy Santamaria LPN Unavailable Unavailable Reason for Visit * Reason Comments TCM Call Encounter Details Date Type Department Care Team (Late st Contact Info) Description 02/23/2025 Patient Outreach [facility] [address], [address] [place] [address] Katy Santamaria LPN [employer] [place] [address] TCM Call Social History Tobacco Use Types Packs/Day Years [...] and Family Not on file 02/23/2025 Attends Islam Services Not on file 02/23 Active Member [...] money to buy more. Never true 02/24/20 Within the past 12 months, t he [...] any time in the past 12 m [facility], were you homeless or living in a snf (including now)? No 02/23/2025 Utilities Answer Date [...] on file documented as of this encounter Miscellaneous Notes * Progress Notes - Katy Santamaria LPN - 02/23/2025 9:04 AM EDT Admit Date: 02/20/25 Discharge Date: 02/22/25 Hospital Service: Hospital Medicine Discharge Diagnosis: Flexor Tenosynovitis of Finger 02/23/2025 TCM call # 1 Patient Reached: Yes Outcome: Spoke with this patient for a TEQUILA nurses call. Patient reports persistent swelling in her finger and an inability to bend it. She states she is soaking the finger three times a day with a soap solution as directed.While soaking she attempts to move the finger. The patient is leaving the wound open to air between soaks. Patient states she does not check her blood sugar, as her diabetes isdiet controlled. Patient is aware of her follow up with [facility]. Patient is compliant withher medications as prescribed. SDOH is negative for any needs. Patient voiced no further concerns or questions. Action: N/A Medication changes: Start Taking: Levofloxacin 137 mcg Take 2 tablets daily TEQUILA appointment: N/A Future Appointment: Scheduled for 03/03/25 @ 9:30 am with Christina TEAGUE with [facility] Items to address at TEQUILA: N/A CBC and CRP lab draws prior to ortho appointment documented in this encounter Plan of Treatment Upcoming Encounters Date Type Department Care Team (Late st Contact Info) Description 04/28/2025 11:10 AM EDT Office Visit [facility] [address] [place] [address] Carlos Fofana MD [address] [phone] Scheduled Procedures Name Priority Associated Diagnoses Date/Ti [...] documented as of this encounter Care Teams Facer Operator Relationship Specialty Start Date End Date Song Flaherty MD [address] [place] [address] PCP - General 02/02/21 Katy Santamaria LPN [employer] [place] [address] TCM Nurse 02/23/25 03/25/25 documented as of this encounter
--- OUTSIDE RECORDS SUMMARY | 2025-03-29 09:51 | XMS_ITS | Encounter Summary ---
Author Organization Healthcare Address [address] [place] [address] Care Team Providers Care Brown Stock Washer Name Role Phone Song Flaherty MD Primary Care Provider [phone] Katy Santamaria LPN Unavailable Unavailable Encounter Details Date Type Department Care Team (Latest Contact Info) Description 03/20/2025 Travel Social History Tobacco Use Types Packs/Day [...] and Family Not on file 02/23/2025 Attends Muslim Services Not on file 02/23 Active Member [...] any time in the past 12 m [facility], were you homeless or living in a [...] on file documented as of this encounter Plan of Treatment Upcoming Encounters Date Type Department Care Team (Late st Contact Info) Description 04/28/2025 11:10 AM EDT Office Visit [facility] [address] [place] [address] Carlos Fofana MD [address] [place] [phone] Scheduled Procedures Name Priority Associated Diagnoses [...] documented as of this encounter Care Teams Brown Stock Washer Relationship Specialty Start Date End Date Song Flaherty MD [address] [place] [address] PCP - General 02/02/21 Katy Santamaria LPN [employer] [place] [address] TCM Nurse 02/23/25 03/25/25 documented as of this encounter
--- OUTSIDE RECORDS SUMMARY | 2025-03-29 09:51 | XMS_ITS | Encounter Summary ---
Author Organization [facility] Address [address] [place] [address] Care Team Providers Care Bit Tapper Name Role Phone Song Flaherty MD Primary Care Provider [phone] Katy Santamaria MANUFACTURING ENGINEERING MANAGER Unavailable Unavailable Reason for Visit * Reason Onset Date Comments HCN - Patient Message 03/02/2025 Encounter Details Date Type Department Care Team (Late st Contact Info) Description 03/02/2025 Telephone [facility] [address] [place] [address] Christina Moise PA [address] [facility] [address] [place] [address] HCN - Patient Message Social History Tobacco Use Types Packs/Day Years [...] and Family Not on file 02/23/2025 Attends [employer] Services Not on file 02/23 Active Member [...] any time in the past 12 m [facility], were you homeless or living in a jail (including now)? No 02/23/2025 Utilities Answer Date Recorded In the past 12 months has th e [employer], gas, oil, or water company threatened to shut off services in your home? No 02/23/2025 Comments Unknown Sex and Gender Information Value Date Recorded Sex Assigned at Not on file Legal Sex Female 6:12 PM EDT Gender Identity Not on file Sexual Orientation Not on file documented as of this encounter Miscellaneous Notes * Telephone Encounter - Negrita Mckenna RN - 03/02/2025 3:22 PM EDT Called and LVM that darrian has a lab and she can have them done here * Telephone Encounter - Lesley Hunt - 03/02/2025 3:05 PM EDT Clinical Concern/Question Reason for Call: Jose Maria, patient relative, Linda is calling stating that the note in mychart states that she needs to have lab work done prior to appt. She states that she has appt tomorrow and would like to know where to go to get this lab work done. Please call to advise. Best contact number: Other: [phone], Many Optimal time of day to reach caller: ANYTIME Additional comments/information from caller: None Note: Please do not reply to this message. Follow-up communication and further actions as a result of this message need to be communicated with the patient directly, if the patient is not active onMyChart. If the patient is active on MyChart, they will receive notification of the communication/outcome via [employer]. documented in this encounter Plan of Treatment Upcoming Encounters Date Type Department Care Team (Late st Contact Info) Description 04/28/2025 11:10 AM EDT Office Visit [facility] [address] [place] [phone] Carlos Fofana MD [address] [address] Scheduled Procedures Name Priority Associated Diagnoses [...] documented as of this encounter Care Teams Bit Tapper Relationship Specialty Start Date End Date Song Flaherty MD [address] [place] [address] PCP - General 5/14/21 Katy Santamaria LPN VALUE-BASED [place] [address] TCM Nurse 02/23/25 03/25/25 documented as of this encounter
--- OUTSIDE RECORDS SUMMARY | 2025-03-29 09:51 | XMS_ITS | Encounter Summary ---
Author Organization [facility] Address [address] [place] [address] Care Team Providers Care Sweatband Separator Name Role Phone Song Flaherty MD Primary Care Provider [phone] Katy Santamaria LPN Unavailable Unavailable Encounter Details Date Type Department Care Team (Late st Contact Info) Description 03/07/2025 Orders Only [facility] [address] [place] [address] Santy Mcleod MD [address] [place], [place] [id number] Swelling of digit of hand (Primary Dx) Social History Tobacco Use Types Packs/Day Years [...] and Family Not on file 02/23/2025 Attends Baptism Services Not on file 02/23 Active Member [...] any time in the past 12 m [facility], were you homeless or living in a senior living (including now)? No 02/23/2025 Utilities Answer Date Recorded In the past 12 months has th e [employer], gas, oil, or water [employer] threatened to shut off services in your home? No 02/23/2025 Comments Unknown Sex and Gender Information Value Date Recorded Sex Assigned at Not on file Legal Sex Female 6:12 PM EDT Gender Identity Not on file Sexual Orientation Not on file documented as of this encounter Miscellaneous Notes * Addendum Note - Santy Mcleod MD - 03/07/2025 7:38 PM EDTAddended by: SANTY MCLEOD on: 03/08/2025 04:00 PM Modules accepted: Orders * Addendum Note - Santy Mcleod MD - 03/07/2025 7:38 PM EDTAddended by: SANTY MCLEOD on: 03/09/2025 11:25 AM Modules accepted: Orders documented in this encounter Plan of Treatment Upcoming Encounters Date Type Department Care Team (Late st Contact Info) Description 04/28/2025 11:10 AM EDT Office Visit [facility] [address] [place] [address] Carlos Fofana MD [address] [address] Scheduled Procedures Name Priority Associated Diagnoses Date/Ti me TENOLYSIS, FLEXOR, PALM AND FINGER Open wound of left middle finger without damage to nail, sequela documented as of this encounter Visit Diagnoses Diagnosis Swelling of digit of hand- Primary documented in this encounter Additional Health Concerns Assessment Noted Time A fall risk assessment has been complete d for the patient 03/03/2025 9:53 AM EDT A Body Mass Index follow-up plan has been documented for the patient 03/07/2025 10:45 AM EDT documented as of this encounter Care Teams Sweatband Separator Relationship Specialty Start Date End Date Song Flaherty MD [address] [place] [address] PCP - General 02/02/21 Katy Santamaria LPN VALUE-[employer]ED [place] [address] TCM Nurse 02/23/25 03/25/25 documented as of this encounter
--- OUTSIDE RECORDS SUMMARY | 2025-03-29 09:51 | XMS_ITS | Encounter Summary ---
Author Organization [facility] Address [address] [place] [address] Care Team Providers Care Process Safety Engineer Name Role Phone Song Flaherty MD Primary Care Provider [phone] Katy Santamaria LPN Unavailable Unavailable Encounter Details Date Type Department Care Team (Latest Contact Info) Description 03/21/2025 Travel Social History Tobacco Use Types Packs/Day [...] and Family Not on file 02/23/2025 Attends [employer] Services Not on file 02/23 Active Member [...] any time in the past 12 m [facility], were you homeless or living in a detention (including now)? No 02/23/2025 Utilities Answer Date [...] Office Visit [facility] [address] [place] [address] Carlos Fofana MD [address] [place] [address] Scheduled Procedures Name Priority Associated Diagnoses [...] documented as of this encounter Care Teams Process Safety Engineer Relationship Specialty Start Date End Date Song Flaherty MD [address] [place] [address] PCP - General 02/02/21 Katy Santamaria LPN VALUE-BASED [place] [address] TCM Nurse 02/23/25 03/25/25 documented as of this encounter
--- OUTSIDE RECORDS SUMMARY | 2025-03-29 09:51 | XMS_ITS | Encounter Summary ---
Author Organization [facility] Address [address] [place] [address] Care Team Providers Care Stone Carver Name Role Phone Song Flaherty MD Primary Care Provider [phone] Katy Santamaria LPN Unavailable Unavailable Reason for Visit * Reason Comments TCM Call Encounter Details Date Type Department Care Team (Late st Contact Info) Description 03/18/2025 Patient Outreach [facility] [address] [place] [address] Katy Santamaria LPN VALUE-[employer]ED [place] [address] TCM Call Social History Tobacco Use Types [...] and Family Not on file 02/23/2025 Attends Jainism Services Not on file 02/23 Active Member [...] any time in the past 12 m [facility], were you homeless or living in a [facility] (including now)? No 02/23/2025 Utilities Answer Date [...] Progress Notes - Katy Santamaria LPN - 03/18/2025 3:21 PM EDT Admit Date: 02/20/25 Discharge Date: 02/22/25 Hospital Service: Hospital Medicine Discharge Diagnosis: Flexor Tenosynovitis of Finger 03/18/2025 TCM Follow-up Call Patient reached: Yes Outcome: Called and spoke with this patient for a TEQUILA follow up call. Patient states that she had hand surgery on her right middle finger on 03/08/25. She has stitches throughout the finger and the swelling is down but states she is unable to bend it. She wears a white cotton glove to prevent it from getting dirty and infected. Patient states that she has an a follow up Friday with the surgeon. She is hoping to get physical therapy to regain the bend in her hand. Patient voiced no further questions at this time. Action: N/A documented in this encounter Plan of Treatment Upcoming Encounters Date Type Department Care Team (Late st Contact Info) Description 04/28/2025 11:10 AM EDT Office Visit [facility] [address] [place] [address] Carlos Fofana MD [address] [address] Scheduled Procedures Name Priority Associated Diagnoses Date/Ti [...] documented as of this encounter Care Teams Stone Carver Relationship Specialty Start Date End Date Song Flaherty MD [address] [place] [address] PCP - General 02/02/21 Katy Santamaria LPN VALUE-[employer]ED [place] [address] TCM Nurse 02/23/25 03/25/25 documented as of this encounter
--- OUTSIDE RECORDS SUMMARY | 2025-03-29 09:51 | XMS_ITS | Encounter Summary ---
Author Organization [facility] Address [address] [place] [address] Care Team Providers Care Clinic Office Manager Name Role Phone Song Flaherty MD Primary Care Provider [phone] Katy Santamaria LPN Unavailable Unavailable Encounter Details Date Type Department Care Team (Late st Contact Info) Description 03/03/2025 Telephone [facility] [address] [place] [address] Carlos Fofana MD [address] [address] Social History Tobacco Use Types Packs/Day Years [...] and Family Not on file 02/23/2025 Attends Denominational Services Not on file 02/23 Active Member [...] time in the past 12 m [facility], were you homeless or living in a care home (including now)? No 02/23/2025 Utilities Answer Date Recorded In the past 12 months has th e [employer], gas, oil, or water [employer] threatened to shut off services in your home? No 02/23/2025 Comments Unknown Sex and Gender Information Value Date Recorded Sex Assigned at Not on file Legal Sex Female 6:12 PM EDT Gender Identity Not on file Sexual Orientation Not on file documented as of this encounter Miscellaneous Notes * Telephone Encounter - Therese Martinez - 03/03/2025 12:47 PM EDT I lvm for patient to call about surgery next week on Friday03/08/25. Gabriella Villaseñor documented in this encounter Plan of Treatment Upcoming Encounters Date Type Department Care Team (Late st Contact Info) Description 04/28/2025 11:10 AM EDT Office Visit [facility] [address] [place] [address] Carlos Fofana MD [address] [place] [address] Scheduled Procedures Name Priority Associated Diagnoses Date/Ti [...] documented as of this encounter Care Teams Clinic Office Manager Relationship Specialty Start Date End Date Song Flaherty MD [address] [place] [address] PCP - General 02/02/21 Katy Santamaria LPN VALUE-[employer]ED [place] [address] TCM Nurse 02/23/25 03/25/25 documented as of this encounter
--- OUTSIDE RECORDS SUMMARY | 2025-03-29 09:51 | XMS_ITS | Encounter Summary ---
Author Organization [facility] Address [address] [place] [address] Care Team Providers Care General Intern Name Role Phone Song Flaherty MD Primary Care Provider [phone] Katy Santamaria BRASS MOLDER HELPER Unavailable Unavailable Reason for Visit * Reason Onset Date Comments HCN - Patient Message 02/25/2025 Encounter Details Date Type Department Care Team (Late st Contact Info) Description 02/25/2025 Telephone [facility] [address] [place] [address] Carlos Fofana MD [address] [address] HCN - Patient Message Social History [...] and Family Not on file 02/23/2025 Attends [employer] Services Not on file 02/23 Active Member [...] in the past 12 m [facility], were you homeless or living [...] Telephone Encounter - Negrita Mckenna RN - 02/25/2025 9:11 AM EDT Per provider we will stop the Levaquin and keep the Linezolid. We hope this will decrease the symptoms enough to keep her comfortable. We will see her next week for follow up. * Telephone Encounter - Song Newton Allyson - 02/25/2025 8:20 AM EDT Clinical Concern/Question Reason for Call: Dr. Fofana pt ([facility]) is requesting a call back from clinical staff. She states she is experiencing pain in all joints, which she believes is caused by the prescribed antibiotics. Best contact number: [phone] (mobile) Optimal time of day to reach caller: ANYTIME Additional comments/information from caller: None Note: Please do not reply to this message. Follow-up communication and further actions as a result of this message need to be communicated with the patient directly, if the patient is not active onMyChart. If the patient is active on MyChart, they will receive notification of the communication/outcome via [employer] documented in this encounter Plan of Treatment Upcoming Encounters Date Type Department Care Team (Late st Contact Info) Description 04/28/2025 11:10 AM EDT Office Visit [facility] [address] [place] [address] Carlos Fofana MD [address] [phone] Scheduled Procedures Name Priority Associated Diagnoses Date/Ti [...] documented as of this encounter Care Teams General Intern Relationship Specialty Start Date End Date Song Flaherty MD [address] [place] [address] PCP - General 02/02/21 Katy Santamaria LPN VALUE-[place]ED [place] [address] TCM Nurse 02/23/25 03/25/25 documented as of this encounter
--- OUTSIDE RECORDS SUMMARY | 2025-03-29 09:51 | XMS_ITS | Clinical Summary ---
Author Organization [facility] Address [address] [place] [address] Care Team Providers Care Wall Attendant Name Role Phone Song Flaherty MD Primary Care Provider [phone] Allergies Active Allergy Reactions Criticality Noted Date Comments Erythromycin Unknown - Patient st ates they do not know rxn details Low 02/20/2025 Levofloxacin Other - please docum ent in the comment field Low 03/03/2025 Joint pain Penicillin G Anaphylaxis High 01/11/2013 Tolmetin Unknown - Patient st ates they do not know rxn details Low 02/20/2025 Medications allopurinol (Zyloprim) 300 MG tablet Take 1 tablet by mouth daily. Active ALPRAZolam (Xanax) 0.25 MG tablet Take 1 tablet by mouth 2 times a day. Active diclofenac (Voltaren) 75 MG EC tablet Take 1 tablet by mouth 2 times a day. Do not crush, chew, or split. Active furosemide (Lasix) 40 MG tablet Take 1 tablet by mouth daily. Active hydrOXYzine HCl (Atarax) 25 MG tablet Take 1 tablet by mouth nightly. Active levothyroxine (Synthroid, Levoxyl) 137 MCG tablet Take 2 tablets by mouth daily. Active lisinopril 20 MG tablet Take 1 tablet by mouth daily. Active metoprolol succinate XL (Toprol-XL) 100 MG 24 hr tablet Take 1 tablet by mouth daily. Do not crush or chew. Active rosuvastatin (Crestor) 10 MG tablet Take 1 tablet by mouth daily. Active Semaglutide, 1 MG/DOSE, (Ozempic, 1 MG/DOSE,) 4 MG/3ML solution pen-injector Inject 1 mg under the skin 1 time per week. Active [place]-3 Fatty Acids (FISH OIL PO) Take 2 capsules by mouth daily. Active Coenzyme Q10 (COQ-10 PO) Take 1 tablet by mouth daily. Active aspirin 81 MG EC tablet Take 1 tablet by mouth daily. Active carbamide peroxide (Debrox) 6.5 % otic solution Administer 5 drops into each ear as needed for ear pain. Active Doxylamine Succinate, Sleep, (SLEEP AID PO) Take 1 tablet by mouth as needed. Active fluticasone (Flonase) 50 MCG/ACT nasal spray Administer 1 spray into each nostril daily. Shake gently. Before first use, prime pump. After use, clean tip and replace cap. Active HYDROcodone-aceta minophen ([place]) 5-325 MG tablet Take 1 tablet by mouth every 6 hours as needed for moderate pain. 30 tablet 03/07/20 25 Active Additional Information Patient not taking.Reported on 03/21/2025 traMADol (Ultram) 50 MG tablet take 1 tablet by mouth 4 times daily as needed 03/22/20 24 Active spironolactone (Aldactone) 25 MG tablet Take 1 tablet by mouth daily. 08/26/20 24 Active predniSONE (Deltasone) 20 MG tablet Take 1 tablet by mouth 2 times a day. 12/28/19 25 Active mupirocin (Bactroban) 2 % ointment APPLY TOPICALLY TO THE AFFECTED AREA THREE TIMES DAILY FOR 7 DAYS 06/03/20 24 Active FLUoxetine (PROzac) 20 MG capsule Take 1 capsule by mouth daily. 11/18/19 25 Active estradiol (Estrace) 1 MG tablet Take 1 tablet by mouth daily. 10/18/19 25 Active dexamethasone (Decadron) 2 MG tablet take 1 tablet by mouth every 12 hours for 5 days 03/22/20 24 Active cyclobenzaprine (Flexeril) 5 MG tablet Take 1 tablet by mouth 3 times a day as needed. 03/22/20 24 Active colchicine (Colcrys) 0.6 MG tablet Take 1 tablet by mouth 2 times a day. 09/16/20 24 Active clindamycin (Cleocin) 300 MG capsule take 1 capsule by mouth every 12 hours for 7 days 02/18/20 25 Active linezolid (Zyvox) 600 MG tabletIndications :Swelling of digit of hand,Flexor tenosynovitis of finger,Cellulitis of right middle finger Take 1 tablet by mouth 2 times a day for 8 days. 16 tablet 02/23/20 25 025 levoFLOXacin (Levaquin) 750 MG tabletIndications :Swelling of digit of hand,Flexor tenosynovitis of finger,Cellulitis of right middle finger Take 1 tablet by mouth daily for 8 days. 8 tablet 02/23/20 25 025 sulfamethoxazole- trimethoprim (Bactrim DS) 800-160 MG tabletIndications :Cellulitis of middle finger, right,Swelling of digit of hand Take 1 tablet by mouth 2 times a day for 7 days. 14 tablet 03/03/20 25 025 amoxicillin-clavu lanate (Augmentin) 875-125 MG tabletIndications :Swelling of digit of hand Take 1 tablet by mouth 2 times a day for 14 days. 24 tablet 03/08/20 25 025 Additional Information Patient not taking.Reported on 03/21/2025 sulfamethoxazole- trimethoprim (Bactrim DS) 800-160 MG tabletIndications :Swelling of digit of hand Take 1 tablet by mouth 2 times a day for 14 days. 28 tablet 03/09/20 25 025 Active Problems Problem Noted Date Diagnosed Date Swelling of digit of hand 02/22/2025 Cellulitis of middle finger, right 02/22/2025 Flexor tenosynovitis of finger 02/21/2025 Encounters Date Type Department Care Team Description 03/22/2025 Telephone [place] [id number] [place] [address] Carlos Fofana MD HCN - Patient Message 03/21/2025 11:10 AM EDT Office Visit [facility] [address] [place] [address] Carlos Fofana MD Injury of flexor tendon of right hand, initial encounter (Primary Dx); Flexor tenosynovitis of finger 03/21/2025 Travel 03/20/2025 Travel 03/18/2025 Patient Outreach [facility] [place] [id number] [facility] [address] [place] [address] Katy Santamaria LPN TCM Call 03/07/2025 Orders Only [facility] [address] [place] [address] Santy Clement MD Swelling of digit of hand (Primary Dx) 03/04/2025 Telephone [facility] [address] [place] [address] Christine Read MD HCN Clinical Concern/Question 03/03/2025 9:30 AM EDT Office Visit [address] [address] Christina Moise PA Cellulitis of middle finger, right (Primary Dx); Swelling of digit of hand; Injury of flexor tendon of right hand, initial encounter 03/03/2025 Telephone [facility] [address] [place] [address] Carlos Fofana MD 03/03/2025 Travel 03/02/2025 Telephone [facility] [address] [place] [address] Christina Moise PA HCN - Patient Message 02/25/[address] [address] Carlos Fofana MD HCN - Patient Message 02/23/2025 Patient Outreach [facility] [address] [place] [address] Katy Santamaria LPN TCM Call 02/20/2025 3:46 PM EDT - 02/22/2025 1:41 PM EDT Hospital Encounter [facility] Inpatient [address] [place] [address] Amari Wagner MD The, MD Steven King, MD Daniela Aranda Rani, MD Siwakoti, Ashmita, MD Swelling of digit of hand (Primary Dx); Flexor tenosynovitis of finger; Cellulitis of right middle finger Discharge Disposition: Home or Self Care 02/20/2025 Travel 02/15/2025 Orders Only External Location [address] [place] [address] Provider, External 02/15/2025 Orders Only External Location [address] [place] [address] Provider, External from Last 3 Months Social History Tobacco Use Types Packs/Day Years [...] and Family Not on file 02/23/2025 Attends [employer] Services Not on file 02/23 Active Member [...] any time in the past [address] [place] [place], were you homeless or living in a [...] on file Sexual Orientation Not on file Last Filed Vital Signs Vital Sign Reading Time Taken Comments Blood Pressure 120/72 03/21/2025 11:17 AM EDT Pulse 77 03/21/2025 11:17 AM EDT Temperature 36.6 C (97.8 F) 03/21/2025 11:17 AM EDT Respiratory Rate 16 03/03/2025 9:50 AM EDT Oxygen Saturation 98% 03/21/2025 11:17 AM EDT Inhaled Oxygen Concentration - - Weight 131 kg (288 lb) 03/21/2025 11:17 AM EDT Height 177.8 cm (5' 10 ) 03/21/2025 11:17 AM EDT Body Mass Index 41.32 03/21/2025 11:17 AM EDT Plan of Treatment Upcoming Encounters Date Type Department Care Team (Late st Contact Info) Description 04/28/2025 11:10 AM EDT Office Visit [facility] [address] [place] [address] Carlos Fofana MD [address] [place] [address] Scheduled Procedures Name Priority Associated Diagnoses Date/Ti me TENOLYSIS, FLEXOR, PALM AND FINGER Open wound of left middle finger without damage to nail, sequela Health Maintenance Due Date Last Done Comments [facility]-Bone Density Scan 1959 [facility]-Depression Screening 1959 [facility]-Medicare Annual Wellness (AWV) 1959 [facility]-Infant/Child/Adol SDOH Screenings 1959 CT Colonography 2004 Colonoscopy 2004 FIT 2004 FOBT 2004 Sigmoidoscopy 2004 [facility]-Breast Cancer Screening 2009 [facility]-Zoster Vaccines (1 of 2) 05/14/2012 03/19/2012 [facility]-RSV Vaccine: 60+ Years or (1 - Risk 60-74 years 1-dose series) 2019 [facility]-Pneumococcal Vaccine: 50+ Years (3 of 3 - PCV20 or PCV21) 01/29/2023 01/29/2018, 08/26/2016 FIT-DNA 01/20/2024 01/19/2021 [facility]-Colorectal Cancer Screening 01/20/2024 [id number] Vaccine (5 - Mixed Product risk 2023- season) 12/02/2024 06/04/2024, 07/09/2023, 01/19/2021, Additional history exists [facility]-Influenza Vaccine (#1) 2025 06/04/2024 [facility]- SDOH Screenings 08/25/2025 [facility]-Adult SDOH Screenings 08/25/2025 02/23/2025 [facility]-DTaP,Tdap,and Td Vaccines (3 - Td or Tdap) 06/03/2034 06/03/2024, 01/29/2018 [facility]-Hepatitis A Vaccines Aged Out 09/08/2018 No longer eligible based on patient's age to complete this topic [facility]-Hepatitis C Screening Completed 02/20/2025 [facility]-Obesity Intervention Completed 025, 03/03/2025, 02/20/2025 HPV Vaccines Aged Out No longer eligi ble based on patient's age to complete this topic [facility]-HIB Vaccines Aged Out No longer e ligible based on patient's age to complete this topic [facility]-IPV Vaccines Aged Out No longer e ligible based on patient's age to complete this topic [facility]-Rotavirus Vaccines Aged Out No lo nger eligible based on patient's age to complete this topic Procedures Procedure Name Priority Date/Time Associated Diagnosis Comments CBC WITH AUTO DIFFERENTIAL Routine 03/03/2025 12:42 PM EDT Swelling of digit of hand Flexor tenosynovitis of finger Cellulitis of right middle finger C-REACTIVE PROTEIN, PLASMA Routine 03/03/2025 12:42 PM EDT Swelling of digit of hand Flexor tenosynovitis of finger Cellulitis of right middle finger C-REACTIVE PROTEIN, PLASMA STAT Add-on 02/22/2025 2:21 AM EDT BASIC METABOLIC PANEL, PLASMA Routine 02/22/2025 2:21 AM EDT CBC WITH AUTO DIFFERENTIAL Routine 02/22/2025 2:21 AM EDT BLOOD CULTURE (AEROBIC/ANAEROBIC SET) Routine 02/21/2025 10:51 AM EDT BLOOD CULTURE (AEROBIC/ANAEROBIC SET) Routine 02/21/2025 10:51 AM EDT C-REACTIVE PROTEIN, PLASMA STAT Add-on 02/21/2025 3:32 AM EDT COMPREHENSIVE METABOLIC PANEL, PLASMA STAT 02/21/2025 3:32 AM EDT CBC WITH AUTO DIFFERENTIAL STAT 02/21/2025 3:[address] HAND RIGHT W IV CONTRAST STAT 02/20/2025 7:31 PM EDT XR HAND RIGHT 3+ VIEWS STAT 4:14 PM EDT SEDIMENTATION RATE, AUTOMATED Add-On 02/20/2025 3:44 PM EDT ED HIV 1/2 ANTIBODY/ANTIGEN SCREEN WITH REFLEX TO HIV I/II DIFFERENTIATION STAT 02/20/2025 3:44 PM EDT ED PROTOCOL HIV 1/2 ANTIBODY/ANTIGEN SCREEN W/REFLEX TO HIV 1/2 ANTIBODY DIFFERENTIATION STAT 02/20/2025 3:44 PM EDT HEPATITIS C ANTIBODY - ED W/REFLEX TO HCV QUANT PCR STAT 02/20/2025 3:44 PM EDT C-REACTIVE PROTEIN, PLASMA STAT 02/20/2025 3:44 PM EDT CBC WITH AUTO DIFFERENTIAL STAT 02/20/2025 3:44 PM EDT COMPREHENSIVE METABOLIC PANEL, PLASMA STAT 02/20/2025 3:44 PM EDT [facility] ED POCUS PROCDOC Routine 02/20/2025 3:03 PM EDT XR OUTSIDE IMAGES 02/15/2025 11: 51 AM EDT XR OUTSIDE IMAGES 02/15/2025 11: 51 AM EDT from Last 3 Months Results * (ABNORMAL) CBC and Differential (03/03/2025 12:42 PM EDT) Only the most recent of4 resultswithin the time period is included. WBC Count 10.94(H) 3.70 - 10.30 10*3/uL LAB HEMATOLOGY METHOD 03/03/2025 2:00 PM EDT [facility] RBC Count 4.25 3.90 - 5.20 10*6/uL LAB HEMATOLOGY METHOD 03/03/2025 2:00 PM EDT [facility] HGB 12.8 11.2 - 15.7 g/dL LAB HEMATOLOGY METHOD 03/03/2025 2:00 PM EDT [facility] HCT 39.2 34.0 - 45.0 % LAB HEMATOLOGY METHOD 03/03/2025 2:00 PM EDT [facility] Platelet Count 467(H) 155 - 369 10*3/uL LAB HEMATOLOGY METHOD 03/03/2025 2:00 PM EDT [facility] MCV 92 79 - 98 fL LAB HEMATOLOGY METHOD 03/03/2025 2:00 PM EDT [facility] MCH 30.1 26.0 - 32.0 pg LAB HEMATOLOGY METHOD 03/03/2025 2:00 PM EDT [facility] MCHC 32.7 30.7 - 35.5 g/dL LAB HEMATOLOGY METHOD 03/03/2025 2:00 PM EDT [facility] RDW 15.1(H) 11.5 - 14.5 % LAB HEMATOLOGY METHOD 03/03/2025 2:00 PM EDT [facility] MPV 10.3 8.8 - 12.5 fL LAB HEMATOLOGY METHOD 03/03/2025 2:00 PM EDT [facility] nRBC 0.0 <=0.0 per 100 WBCs LAB HEMATOLOGY METHOD 03/03/2025 2:00 PM EDT [facility] Differential Type Automated LAB HEMATOLOGY METHOD 03/03/2025 2:00 PM EDT [facility] Neutrophils % 62 % LAB HEMATOLOGY METHOD 03/03/2025 2:00 PM EDT [facility] Lymphocytes % 27 % LAB HEMATOLOGY METHOD 03/03/2025 2:00 PM EDT [facility] Monocytes % 7 % LAB HEMATOLOGY METHOD 03/03/2025 2:00 PM EDT [facility] Eosinophils % 2 % LAB HEMATOLOGY METHOD 03/03/2025 2:00 PM EDT [facility] Basophils % 1 % LAB HEMATOLOGY METHOD 03/03/2025 2:00 PM EDT [facility] Immature Granulocytes % 1 % LAB HEMATOLOGY METHOD 03/03/2025 2:00 PM EDT [facility] Neutrophils Absolute 6.82(H) 1.60 - 6.10 10*3/uL LAB HEMATOLOGY METHOD 03/03/2025 2:00 PM EDT [facility] Lymphocytes Absolute 2.93 1.20 - 3.90 10*3/uL LAB HEMATOLOGY METHOD 03/03/2025 2:00 PM EDT [facility] Monocytes Absolute 0.79 0.30 - 0.90 10*3/uL LAB HEMATOLOGY METHOD 03/03/2025 2:00 PM EDT [facility] Eosinophils Absolute 0.23 0.00 - 0.50 10*3/uL LAB HEMATOLOGY METHOD 03/03/2025 2:00 PM EDT [facility] Basophils Absolute 0.11(H) 0.00 - 0.10 10*3/uL LAB HEMATOLOGY METHOD 03/03/2025 2:00 PM EDT [facility] Immature Granulocytes Absolute 0.06 0.00 - 0.06 10*3/uL LAB HEMATOLOGY METHOD 03/03/2025 2:00 PM EDT [facility] Blood Venous blood specimen / Unknown Venipuncture / Unknown 03/03/2025 12:42 PM EDT 03/03/2025 12:42 PM EDT Narrative [facility] - 03/03/2025 2:00 PM EDT Therapeutic decision making should be based on absolute values, rather than percentages. us Codie Suarez MD LAB BLOOD ORDERABLES Final Res ult Performing Organization Address [facility] [place] [address] * (ABNORMAL) C-reactive protein (03/03/2025 12:42 PM EDT) Only the most recent of4 resultswithin the time period is included. CRP, Plasma 13.4(H) <=8.0 mg/L 03/03/2025 2:[address] [facility] Blood Venous blood specimen / Unknown Venipuncture / Unknown 03/03/2025 12:42 PM EDT 03/03/2025 12:42 PM EDT Narrative [facility] - 03/03/2025 2:11 PM EDT This CRP test is appropriate for assessment of infection, systemic inflammation and/or tissue injury. To assess cardiovascular disease risk order high sensitivity CRP (CRPH). us Codie Suarez MD LAB BLOOD ORDERABLES Final Res ult Performing Organization Address [facility]/[place] [address] * (ABNORMAL) Basic metabolic panel (02/22/2025 2:21 AM EDT) Glucose, Plasma 116(H) 74 - 99 mg/dL 02/22/2025 2:58 AM EDT [facility] BUN, Plasma 30(H) 8 - 23 mg/dL 02/22/2025 2:58 AM EDT [facility] Creatinine, Plasma 0.92 0.60 - 1.10 mg/dL 02/22/2025 2:58 AM EDT [facility] BUN/Creatinine Ratio 33 02/22/2025 2:58 AM EDT [facility] Sodium, Plasma 136 136 - 145 mmol/L 02/22/2025 2:58 AM EDT [facility] Potassium, Plasma 4.5 3.6 - 4.9 mmol/L 02/22/2025 2:58 AM EDT [facility] Chloride, Plasma 102 97 - 107 mmol/L 02/22/2025 2:58 AM EDT [facility] CO2, Plasma 21(L) 22 - 29 mmol/L 02/22/2025 2:58 AM EDT [facility] Anion Gap 13 6 - 16 mmol/L 02/22/2025 2:58 AM EDT [facility] Total Calcium, Plasma 9.1 8.9 - 10.2 mg/dL 02/22/2025 2:58 AM EDT [facility] eGFRcr 69.2 mL/min/1.7 3m*2 02/22/2025 2:58 AM EDT [facility] Comment:Reported eGFRcr in m L/min/1.73m2 is based the CKD-EPI 2020 equation that does not use a race coefficient. Blood Venous blood specimen / Unknown Venipuncture / Unknown 02/22/2025 2:21 AM EDT 02/22/2025 2:27 AM EDT us Codie Suarez MD LAB BLOOD ORDERABLES Final Res ult [facility] [address] [place] [address] * Blood Culture (Aerobic/Anaerobet Set) (02/21/2025 10:51 AM EDT) Only the most recent of2 resultswithin the time period is included. Culture No growth at day 5 02/26/2025 11:17 AM EDT [facility] Blood Structure of right hand / Unknown Venipuncture / Unknown 02/21/2025 10:51 AM EDT 02/21/2025 11:09 AM EDT Narrative [facility] - 02/26/2025 11:17 AM EDT Low blood volume submitted, results may be compromised us Codie Suarez MD LAB MICROBIOLOGY - GENERAL ORD ERABLES Final Result [facility] [address] [place] [address] * (ABNORMAL) Comprehensive Metabolic Panel, Plasma (02/21/2025 3:32 AM EDT) Only the most recent of2 resultswithin the time period is included. Glucose, Plasma 83 74 - 99 mg/dL 02/21/2025 6:01 AM EDT [facility] BUN, Plasma 27(H) 8 - 23 mg/dL 02/21/2025 6:01 AM EDT [facility] Creatinine, Plasma 0.89 0.60 - 1.10 mg/dL 02/21/2025 6:01 AM EDT [facility] BUN/Creatinine Ratio 30 02/21/2025 6:01 AM EDT [facility] Sodium, Plasma 140 136 - 145 mmol/L 02/21/2025 6:01 AM EDT [facility] Potassium, Plasma 4.7 3.6 - 4.9 mmol/L 02/21/2025 6:01 AM EDT [facility] Chloride, Plasma 107 97 - 107 mmol/L 02/21/2025 6:01 AM EDT [facility] CO2, Plasma 21(L) 22 - 29 mmol/L 02/21/2025 6:01 AM EDT [facility] Anion Gap 12 6 - 16 mmol/L 02/21/2025 6:01 AM EDT [facility] Total Calcium, Plasma 9.2 8.9 - 10.2 mg/dL 02/21/2025 6:01 AM EDT [facility] Total Protein 6.6 6.3 - 7.9 g/dL 02/21/2025 6:01 AM EDT [facility] Albumin, Plasma 3.5 3.5 - 5.2 g/dL 02/21/2025 6:01 AM EDT [facility] AST, Plasma 23 10 - 35 U/L 02/21/2025 6:01 AM EDT [facility] ALT, Plasma 42(H) 10 - 35 U/L 02/21/2025 6:01 AM EDT [facility] Alkaline Phosphatase, Plasma 137 46 - 142 U/L 02/21/2025 6:01 AM EDT [facility] Total Bilirubin, Plasma 0.3 0.2 - 1.1 mg/dL 02/21/2025 6:01 AM EDT [facility] eGFRcr 72.1 mL/min/1.7 3m*2 02/21/2025 6:01 AM EDT [facility] Comment:Reported eGFRcr in m L/min/1.73m2 is based the CKD-EPI 2020 equation that does not use a race coefficient. Blood Venous blood specimen / Unknown Venipuncture / Unknown 02/21/2025 3:32 AM EDT 02/21/2025 5:[address] LAB BLOOD ORDERABLES Final Resul t [facility] [address] [place] [address] * CT Hand Right w IV Contrast [...] IMG XR PROCEDURES Final Resul t * ED HIV 1/2 Antibody/Antigen Screen w/Reflex to HIV 1/2 Differentiation (02/20/2025 3:44 PM EDT) [facility] HIV 1 & 2 Antibody/Antigen Screen Non Reactive Non Reactive 02/20/2025 4:44 PM EDT [facility] Comment:Screening for HIV 1 & 2 antibodies, and P24 antigen is NONREACTIVE. No confirmatory testing is required. Blood Venous blood specimen / Unknown Venipuncture / Unknown 02/20/2025 3:44 PM EDT 02/20/2025 4:04 PM EDT Result [facility] Major Serrato MD LAB BLOOD ORDERABLES Final Result Performing Organization Address City/[facility]/ZIP Co de Phone Number [facility] [address] [place] [address] * Hepatitis C Antibody - ED (02/20/2025 3:44 PM EDT) [facility] Hepatitis C Antibody Negative Negative 02/20/2025 4:44 PM EDT [facility] Blood Venous blood specimen / Unknown Venipuncture / Unknown 02/20/2025 3:44 PM EDT 02/20/2025 4:04 PM EDT Major Serrato MD LAB BLOOD ORDERABLES Final Result Performing Organization Address City/[facility]/ZIP Co de Phone Number [facility] [address] [place] [address] * (ABNORMAL) Sedimentation Rate, Automated (02/20/2025 3:44 PM EDT) Sedimentation Rate 60(H) <30 mm/hr 2024 5:10 PM EDT [facility] Blood Venous blood specimen / Unknown Venipuncture / Unknown 02/20/2025 3:44 PM EDT 02/20/2025 3:51 PM EDT us Carlos Fofana MD LAB BLOOD ORDERABLES Final R esult [facility] [address] [place] [address] * [facility] ED POCUS PROCDOC (02/20/2025 3:03 PM [...] adjacent digits The images were Saved in [employer] - E. The study was technically adequate. Comments: us Amari Wagner MD IN CLINIC/BEDSIDE ORDERABLES Final Result * XR OUTSIDE IMAGES (02/15/2025 11:51 AM EDT) Only the most recent of2 resultswithin the time period is included. Anatomical Region Laterality Modality Radiographic Rina ging 02/15/2025 11:5 1 AM EDT us External Provider IMG XR PROCEDURES Final Result from Last 3 [place] [address] [facility] Advance Directives * Full Code (Latest Code Status on File) Date Activated Date Inactivated Comments 02/21/2025 9:06 AM 02/22/2025 3:46 PM Question Answer Comments I have reviewed the capacity from the link above and, if needed, have updated to appropriate status: Yes Care Teams Wall Attendant Relationship Specialty Start Date End Date Song Flaherty MD [address] [place] [id number] PCP - General 02/02/21
--- OUTSIDE RECORDS SUMMARY | 2025-03-29 09:51 | XMS_ITS | Encounter Summary ---
Author Organization [facility] Address [address] [place] [address] Care Team Providers Care Pricing Lead Name Role Phone Song Flaherty MD Primary Care Provider [phone] Katy Santamaria CLINICAL CARE COORDINATOR Unavailable Unavailable Reason for Visit * Reason Onset Date Comments HCN Clinical Concern/Question 03/04/2025 Encounter Details Date Type Department Care Team (Late st Contact Info) Description 03/04/2025 Telephone [facility] [address] [place] [address] Christine Read MD [address] [address] HCN Clinical Concern/Question Social History Tobacco Use Types Packs/Day Years [...] and Family Not on file 02/23/2025 Attends [employer] Not on file 02/23 Active Member [...] any time in the past 12 m [facility], were you homeless or living in a senior care (including now)? No 02/23/2025 Utilities Answer Date [...] Telephone Encounter - Negrita Mckenna RN - 03/09/2025 11:27 AM EDT Called and let her know we have switched to bactrim just in case. She will call back with any otherquestions or concerns. * Telephone Encounter - Negrita Mckenna RN - 03/09/2025 10:32 AM EDT Called and let her know I'm waiting to hear back from the provider and will call her back once we do. * Telephone Encounter - Savita Wang - 03/09/2025 8:34 AM EDT Clinical Concern/Question Reason for Call: Dr Ruiz/Patient called to speak to a nurse, had surgery yesterday on rt middlefinger she is allergic to penicillin and was given amoxicillin-clavulanate (Augmentin) 875-125 MG tablet, she is afraid to take please call to advise. Thanks Best contact number: [phone] (mobile) Optimal time of day to reach caller: ANYTIME Additional comments/information from caller: None Note: Please do not reply to this message. Follow-up communication and further actions as a result of this message need to be communicated with the patient directly, if the patient is not active onMyChart. If the patient is active on MyChart, they will receive notification of the communication/outcome via MyChart. documented in this encounter Plan of Treatment Upcoming Encounters Date Type Department Care Team (Late st Contact Info) Description 04/28/2025 11:10 AM EDT Office Visit [facility] [address] [place] [address] Carlos Fofana MD [address] [place] [phone] Scheduled Procedures Name Priority Associated Diagnoses [...] documented as of this encounter Care Teams Pricing Lead Relationship Specialty Start Date End Date Song Flaherty MD [facility] [place] [address] PCP - General 02/02/21 Katy Santamaria LPN [employer] [place] [address] TCM Nurse 02/23/25 03/25/25 documented as of this encounter
--- OUTSIDE RECORDS SUMMARY | 2025-03-29 09:51 | XMS_ITS | Encounter Summary ---
Author Organization [facility] Address [address] [place] [address] Care Team Providers Care Hand Reamer Name Role Phone Song Flaherty MD Primary Care Provider [phone] Katy Santamaria STAMPER BLOCKER Unavailable Unavailable Reason for Visit * Reason Onset Date Comments HCN - Patient Message 03/22/2025 Encounter Details Date Type Department Care Team (Late st Contact Info) Description 03/22/2025 Telephone [facility] [address] [place] [address] Carlos Fofana MD [address] [address] HCN - Patient Message Social [...] and Family Not on file 02/23/2025 Attends [employer] Services Not on file 02/23 Active Member [...] time in the past 12 m [facility], were you homeless or living in a chcf (including now)? No 02/23/2025 Utilities Answer Date [...] encounter Miscellaneous Notes * Telephone Encounter - Myra Crowell RN - 03/23/2025 9:11 AM EDT LVM telling her cultures were negative so no new abx and to continue on what she is currently on. * Telephone Encounter - Gilbert Lesley Wade - 03/22/2025 9:33 AM EDT Clinical Concern/Question Reason for Call: Ct -Patient is calling asking to check on what antibiotic that the provider wanted her to continue on. She states that she had labs done and she wanted to know what the cultures said she should take. She said NO PENICILLIN, as she is allergic. She also stated she uses [facility] in [place]. Please call to advise. Best contact number: [phone] (mobile) Optimal time of day to reach caller: ANYTIME Additional comments/information from caller: None Note: Please do not reply to this message. Follow-up communication and further actions as a result of this message need to be communicated with the patient directly, if the patient is not active onMyChart. If the patient is active on MyChart, they will receive notification of the communication/outcome via [employer]. documented in this encounter Plan of Treatment Upcoming Encounters Date Type Department Care Team (Late st Contact Info) Description 04/28/2025 11:10 AM EDT Office Visit [facility] [address] [place] [id number] Carlos Fofana MD [address] [place] [phone] Scheduled Procedures Name Priority Associated Diagnoses Date/Ti [...] documented as of this encounter Care Teams Hand Reamer Relationship Specialty Start Date End Date Song Flaherty MD [address] [place] [address] PCP - General 02/02/21 Katy Santamaria LPN [employer] [place] [address] TCM Nurse 02/23/25 03/25/25 documented as of this encounter
--- OUTSIDE RECORDS SUMMARY | 2025-03-29 09:51 | XMS_ITS | Encounter Summary ---
Author Organization [facility] Address [address] [place] [address] Care Team Providers Care Records Management Technician Name Role Phone Song Flaherty MD Primary Care Provider [phone] Katy Santamaria LPN Unavailable Unavailable Encounter Details Date Type Department Care Team (Latest Contact Info) Description 03/03/2025 Travel Social History Tobacco Use Types Packs/Day [...] and Family Not on file 02/23/2025 Attends [employer] Not on file 02/23 Active Member [...] any time in the past 12 m [facility], were you homeless or living in [...] Office Visit [facility] [address] [place] [address] Carlos Fofana MD [address] [place] [phone] Scheduled Procedures Name Priority Associated Diagnoses [...] documented as of this encounter Care Teams Records Management Technician Relationship Specialty Start Date End Date Song Flaherty MD [address] [place] [address] PCP - General 02/02/21 Katy Santamaria LPN [employer] [place] [address] TCM Nurse 02/23/25 03/25/25 documented as of this encounter
--- NOTE | 2025-03-29 10:30 | MM_ITS ---
PROCEDURE INFORMATION: Exam: MG Bilateral Screening 3D Mammography Exam date and time: 03/29/2025 10:22 AM Age: 65 years old Clinical indication: Screening exam. TECHNIQUE: Imaging protocol: Bilateral Screening tomosynthesis and 2D mammography including computer-aided detection (CAD) when performed. COMPARISON: 1. MG MM DIG SCREENING MAMM BI W/CAD 10/13/2023 4:35 PM 2. MG MM DIG SCREENING MAMM BI W/CAD 10/04/2022 4:31 PM FINDINGS: MAMMOGRAPHY: Breast composition: The breasts are heterogeneously dense, which may obscure small masses. Mass: No suspicious masses. Architectural distortion: None. Calcifications: No suspicious calcifications. Asymmetric density: None. Skin thickening: None. Axillary adenopathy: None. IMPRESSION: No mammographic evidence of malignancy. Annual screening is recommended unless otherwise clinically indicated. ASSESSMENT: BI-RADS Category 1: Negative.
== END 2025-03-29 23:59 | disposition home or self-care (01) ==
LOC: RAD 09:48
PROVIDERS: PCP Family Medicine; Visit Provider Obstetrics & Gynecology
DX: Z12.31 Encounter for screening mammogram for malignant neoplasm of breast (principal); R92.333 Mammographic heterogeneous density, bilateral breasts
CPT/HCPCS: 77063; 77067